=== PATIENT | male | born 1955 | race Caucasian/White ===

== ENCOUNTER → 2016-08-08 | Outpatient (CLI) | payer OTHER ==
[2013-11-06 13:39] VITALS: BP 124/70
[~2016-08-08] MED LIST: ASPI-482 PO; LEVO112T4 PO; LISI10TA2 PO; METF500T4 PO; METO-269 PO; SAXA5TAB PO; SIMV20TA3 PO
[2016-08-08 11:37] LABS: CREATININE 0.9 mg/dL (0.7-1.3); GFR 86.4
== END | disposition home or self-care (01) ==
LOC: LAB 10:46
PROVIDERS: ATTEND Psychiatry & Neurology Neurology
DX: M47.22 Other spondylosis with radiculopathy, cervical region (principal)
CPT/HCPCS: 36415; 82550; 82565; 82607; 82947; 84520; 85651

== ENCOUNTER → 2018-05-09 | Outpatient (CLI) | payer BC ==
[2013-11-06 13:39] VITALS: BP 124/70
[~2018-05-09] MED LIST changes: +METF500T16 PO; -METF500T4 PO
--- NOTE | 2018-05-09 21:48 | RAD ---
EXAM: Chest, 2 views. HISTORY: Cough. COMPARISON: None. FINDINGS: 2 views of the chest are obtained. There is no infiltrate, pleural effusion or pneumothorax. The heart is normal in size. IMPRESSION: No acute pulmonary finding. Electronically signed by: Sandy Torres MD (05/09/2018 9:43 PM) [facility]
== END | disposition home or self-care (01) ==
LOC: RAD 09:32
PROVIDERS: ATTEND Family Medicine
DX: R05 Cough (principal)
CPT/HCPCS: 71046

== ENCOUNTER 2019-10-22 12:12 | Emergency (ER) | payer BC ==
[~2019-10-22] VITALS: Ht 172.7 cm; Wt 87.2 kg
[~2019-10-22 12:12] MED LIST changes: -LEVO112T4 PO; +LEVO112T49 PO; +SIMV20TA18 PO; -SIMV20TA3 PO
[2019-10-22 13:13] LABS: BASO # 0.1 x10^3/uL (0.0-0.2); BASO % 1 % (0-3); EOS # 0.2 x10^3/uL (0.0-0.7); EOS % 2 % (0-3); HEMATOCRIT 45.1 % (39.0-53.0); HEMOGLOBIN 15.8 g/dL (13.0-17.5); LYMPH # 2.6 x10^3/uL (1.0-4.8); LYMPH % 31 % (24-48); MEAN CORPUSCULAR HEMOGLOBIN 30 pg (25-35); MEAN CORPUSCULAR HGB CONC 35 g/dL (31-37); MEAN CORPUSCULAR VOLUME 86 fL (79-100); MONO # 0.5 x10^3/uL (0.0-1.1); MONO % 6 % (0-9); NEUT # 4.9 x10^3/uL (1.8-7.7); NEUT % 60 % (31-73); PLATELET COUNT 247 x10^3/uL (140-400); RED BLOOD COUNT 5.24 x10^6/uL (4.30-5.70); RED CELL DISTRIBUTION WIDTH 14.4 % (11.5-14.5); WHITE BLOOD COUNT 8.2 x10^3/uL (4.0-11.0)
[2019-10-22 13:27] LABS: CREATININE 0.8 mg/dL (0.7-1.3); POTASSIUM 4.4 mmol/L (3.5-5.1)
--- NOTE | 2019-10-22 13:31 | EKG ---
[facility] [address] [place] [address] Test Date: 2019-10-22 Test Time: 12:45:40 Pat Name: NEAL LUGOkrisartment: Room: Gender: M Director Digital Advertising: : 1955 Requested By: CALLUM HUSTON Order Number: [id number] Reading MD: Measurements Intervals [place] Rate: 60 P: 34 MI: 190 QRS: 69 QRSD: 144 T: 16 QT: 434 QTc: 438 Interpretive Statements SINUS RHYTHM RIGHT BUNDLE BRANCH BLOCK RVH WITH REPOLARIZATION ABNORMALITY ABNORMAL ECG RI6.02 No previous ECG available for comparison
[2019-10-22 13:33] LABS: ALBUMIN 3.9 g/dL (3.4-5.0); ALBUMIN/GLOBULIN RATIO 1.1 (1.0-1.7); TOTAL BILIRUBIN 0.4 mg/dL (0.2-1.0); TOTAL PROTEIN 7.5 g/dL (6.4-8.2)
[2019-10-22 13:53] LABS: BILIRUBIN,URINE NEGATIVE (NEG); CLARITY,URINE CLEAR; COLOR,URINE YELLOW; NITRITE,URINE NEGATIVE (NEG); PROTEIN,URINE NEGATIVE (NEG-TRACE); UROBILINOGEN,URINE 0.2 mg/dL (0.2 mg/dL)
[2019-10-22 14:01] LABS: BACTERIA,URINE 0 /HPF (0-FEW); RBC,URINE 0 /HPF (0-2); WBC,URINE 0 /HPF (0-4)
[2019-10-22] MEDS ORDERED: IOHEXOL 240 MG/ML 50ML VIAL. PO ONE (14:45)
[2019-10-22] MEDS ORDERED: IOHEXOL 300 MG/ML 100ML VIAL. IV ONE (14:45)
--- NOTE | 2019-10-22 15:24 | RAD ---
CT study of the abdomen and pelvis with contrast Clinical indications: Abdominal pain. History of aneurysm. TECHNIQUE: After IV infusion of 75 cc of Omnipaque 300, helical CT scanning of the abdomen and pelvis was performed. GI contrast was administered per mouth. PQRS compliance Statement One or more of the following individualized dose reduction techniques were utilized for this study: 1. Automated exposure control 2. Adjustment of the mA and/or kV according to patient size 3. Use of iterative reconstruction technique COMPARISON: None available. FINDINGS: Diffuse fatty infiltration of the liver is seen. The spleen is not enlarged. Pancreas enhances homogeneously. Gallbladder is normal and no extrahepatic biliary ductal dilatation is seen. No adrenal mass is seen. Upper pole right renal cyst is seen. Bilateral hypodense renal nodules are seen consistent with cysts. There is one nodule within the mid to lower aspect of the right kidney anteriorly which is indeterminate based on higher Hounsfield unit measurement of 30. This may be due to it's smaller size of 9 mm. This may be further evaluated with outpatient renal sonography. There is mild perinephric inflammatory stranding. However, no hydronephrosis or hydroureter is seen on either side. Urinary bladder wall is smooth. Urinary bladder is indented by enlarged prostate gland which measures 6.2 cm transversely. The seminal vesicles are symmetric. Calcified atheromatous disease of the abdominal aorta is seen. There is an infrarenal abdominal aortic aneurysm which measures 5.7 cm in transverse dimension and 5.5 cm in AP dimension. No displacement of the calcified wall is seen. No periaortic soft tissue thickening or fluid is evident. This aneurysm measures almost 11 cm in length. This aneurysm does not extend into the common iliac arteries. However, there is a separate focal aneurysm of the right common iliac artery which measures 3.1 cm in greatest AP or transverse dimension. No enlarged abdominal or pelvic lymphadenopathy is seen. Bilateral inguinal hernias are seen containing fat. This is more prominent on the right side. No obstructive bowel pattern is evident. Sigmoid diverticulosis is seen without diverticulitis. The terminal ileum is unremarkable. The appendix is normal. No obstructive bowel pattern is seen. Small hiatal hernia is seen. No free intraperitoneal air or free fluid or mesenteric edema is seen. No lytic process is seen. There is a round sclerotic area involving the left side of the L3 vertebral body. No lung base consolidative infiltrate is seen. IMPRESSION: Infrarenal abdominal aortic aneurysm measuring 5.7 cm in greatest caliber. 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 Enlarged prostate gland. This is a focal sclerotic lesion involving the left side of the L3 vertebral through body. This may represent a solitary bone island but correlation with PSA is recommended to exclude osteoblastic metastatic disease. Indeterminate right renal nodule. This may be further evaluated with outpatient renal sonography. Fatty infiltration of the liver. Small hiatal hernia. Bilateral inguinal hernias right greater than left. The inguinal hernias contain only fat. Electronically signed by: Blas Izaguirre MD (10/22/2019 3:21 PM) [id number]
[2019-10-22 15:30] VITALS: BP 147/82
--- NOTE | 2019-10-22 17:19 | PHYS DOC ---
Past Medical History Past Medical History: Diabetes-Type II, High Cholesterol, Hypertension, Hypothyroid, TIA Past Surgical History: No Surgical History Smoking Status: Former Smoker Additional Information: quit smoking 7 years ago Alcohol Use: Occasionally Drug Use: None General Adult EDM: Chief Complaint: ABDOMINAL PAIN HPI: HPI: Patient is a 64 year old male who presents with back pain that radiates into his buttocks. He does have a history of an aortic abdominal aneurysm. He was sent here by his doctor to have his aneurysm checked as he started having new onset back pain. He denies any other symptoms. He has had some intermittent back pain previously. He denies any numbness or weakness. He does not have any bowel or bladder dysfunction or retention. He denies any severe pain. He is not had any nausea or vomiting. Review of Systems: Review of Systems: General: Denies fever, chills, sweats, fatigue Eyes: Denies drainage, blurred vision HENT: Denies rhinorrhea, sore throat Respiratory: Denies cough, shortness of breath, wheezing Cardiac: Denies edema, palpitations, chest pain GI: Denies abdominal pain, N/V MSK: Denies neck pain reports back pain Skin: Denies rash, jaundice Neuro: Denies headache, dizziness Psychiatric: Denies SI/HI Heart Score: Risk Factors: Risk Factors: DM, Current or recent (<one month) smoker, HTN, HLP, family history of CAD, obesity. Risk Scores: Score 0 - 3: 2.5% MACE over next 6 weeks - Discharge Home Score 4 - 6: 20.3% MACE over next 6 weeks - Admit for Clinical Observation Score 7 - 10: 72.7% MACE over next 6 weeks - Early Invasive Strategies Current Medications: Current Medications Medications (Trade) Dose Ordered Sig/Yoandy Start Time Stop Time Status Last Admin Dose Admin Iohexol (Omnipaque 240 Mg/ml) 30 ml 1X ONCE 10/22/19 14:45 10/22/19 14:46 DC 10/22/19 14:48 30 ML Iohexol (Omnipaque 300 Mg/ml) 75 ml 1X ONCE 10/22/19 14:45 10/22/19 14:46 DC 10/22/19 14:48 75 ML Allergies: Allergies: Allergies Coded Allergies Type Severity Reaction Last Updated Verified No Known Drug Allergies 11/06/13 No Physical Exam: PE: Constitutional: Well developed, well nourished, Cooperative, NAD, non-toxic appearing HEENT: Normocephalic, atraumatic, oropharynx moist, EOMI, PERRL, no drainage from eyes, normal conjunctiva Neck: Supple, normal range of motion, no stridor Cardiovascular: RRR, 2+ radial pulses bilaterally, no edema Respiratory: CTA bilaterally, no respiratory distress, no wheezing/crackles Abdomen: Soft, nontender, nondistended, no masses Skin: Warm, dry, intact Extremities: No obvious deformities Neurologic: Alert and Oriented x3, motor and sensory function grossly normal, no focal deficits Psychologic: Normal affect, normal judgment, normal mood. No SI/HI Current Patient Data: Labs: Laboratory Tests Test 10/22/19 13:00 10/22/19 13:45 White Blood Count 8.2 x10^3/uL (4.0-11.0) Red Blood Count 5.24 x10^6/uL (4.30-5.70) Hemoglobin 15.8 g/dL (13.0-17.5) Hematocrit 45.1 % (39.0-53.0) Mean Corpuscular Volume 86 fL (79-100) Mean Corpuscular Hemoglobin 30 pg (25-35) Mean Corpuscular Hemoglobin Concent 35 g/dL (31-37) Red Cell Distribution Width 14.4 % (11.5-14.5) Platelet Count 247 x10^3/uL (140-400) Neutrophils (%) (Auto) 60 % (31-73) Lymphocytes (%) (Auto) 31 % (24-48) Monocytes (%) (Auto) 6 % (0-9) Eosinophils (%) (Auto) 2 % (0-3) Basophils (%) (Auto) 1 % (0-3) Neutrophils # (Auto) 4.9 x10^3/uL (1.8-7.7) Lymphocytes # (Auto) 2.6 x10^3/uL (1.0-4.8) Monocytes # (Auto) 0.5 x10^3/uL (0.0-1.1) Eosinophils # (Auto) 0.2 x10^3/uL (0.0-0.7) Basophils # (Auto) 0.1 x10^3/uL (0.0-0.2) Sodium Level 135 mmol/L (136-145) L Potassium Level 4.4 mmol/L (3.5-5.1) Chloride Level 98 mmol/L (98-107) Carbon Dioxide Level 24 mmol/L (21-32) Anion Gap 13 (6-14) Blood Urea Nitrogen 19 mg/dL (8-26) Creatinine 0.8 mg/dL (0.7-1.3) Estimated GFR (Cockcroft-Gault) 98.0 BUN/Creatinine Ratio 24 (6-20) H Glucose Level 291 mg/dL (70-99) H Calcium Level 9.0 mg/dL (8.5-10.1) Total Bilirubin 0.4 mg/dL (0.2-1.0) Aspartate Amino Transferase (AST) 63 U/L (15-37) H Alanine Aminotransferase (ALT) 112 U/L (16-63) H Alkaline Phosphatase 92 U/L (46-116) Troponin I Quantitative < 0.017 ng/mL (0.000-0.055) Total Protein 7.5 g/dL (6.4-8.2) Albumin 3.9 g/dL (3.4-5.0) Albumin/Globulin Ratio 1.1 (1.0-1.7) Urine Collection Type Unknown Urine Color Yellow Urine Clarity Clear Urine pH 5.0 (<5.0-8.0) Urine Specific [place] >=1.030 (1.000-1.030) Urine Protein Negative mg/dL (NEG-TRACE) Urine Glucose (UA) >=1000 mg/dL (NEG) Urine Ketones (Stick) Trace mg/dL (NEG) Urine Blood Negative (NEG) Urine Nitrite Negative (NEG) Urine Bilirubin Negative (NEG) Urine Urobilinogen Dipstick 0.2 mg/dL (0.2 mg/dL) Urine Leukocyte Esterase Negative (NEG) Urine RBC 0 /HPF (0-2) Urine WBC 0 /HPF (0-4) Urine Bacteria 0 /HPF (0-FEW) Urine Mucus Mod /LPF Laboratory Tests 10/22/19 13:00 Laboratory Tests 10/22/19 13:00 Vital Signs: Vital Signs Date Time Temp Pulse Resp B/P (MAP) Pulse Ox O2 Delivery O2 Flow Rate FiO2 10/22/19 15:30 68 147/82 (103) 95 Room Air 10/22/19 12:40 98.6 20 98.6 EKG: EKG: [] Radiology/Procedures: Radiology/Procedures: [] Course & Med Decision Making: Course & Med Decision Making Pertinent Labs and Imaging studies reviewed. (See chart for details) Patient is a 64-year-old male who presents to the emergency room with back pain that is new onset. He does have a history of an abdominal aortic aneurysm. Basic labs and a CT abdomen pelvis was done. CT shows a large aneurysm that does not appear to have signs of rupture or dissection. Lab is otherwise fairly normal. He does appear to have some arthritis. He is following up with vascular surgery. He is requesting to go home. He is generally well-appearing. Patient's test results and vitals while in the ED were fully reviewed and discussed with the patient. Patient is stable and at this time does not need admission to the hospital. We have discussed strict return precautions and the importance of following up with their Primary Care Physician. Patient stated understanding and was given an opportunity to ask any questions. Aditya Disclaimer: Aditya Disclaimer: This electronic medical record was generated, in whole or in part, using a voice recognition dictation system. Departure Departure Impression: Primary Impression: Sciatica Additional Impression: Abdominal aneurysm Disposition: HOME, SELF-CARE Condition: IMPROVED Patient Instructions: Sciatica, Gcue-es-Dvub, Abdominal Aortic Aneurysm-Brief Justicifation of Admission Dx: Justifications for Admission: Justification of Admission Dx: N/A CALLUM HUSTON MD Oct 22, 2019 17:19
[2019-10-23] MEDS ORDERED: IOHEXOL 300 MG/ML 100ML VIAL. ONE (06:07)
[2019-10-23] MEDS ORDERED: IOHEXOL 240 MG/ML 50ML VIAL. ONE (06:08)
== END 2019-10-22 17:28 | disposition home or self-care (01) ==
LOC: ER 12:12
DX: M54.40 Lumbago with sciatica, unspecified side (principal); I71.4 Abdominal aortic aneurysm, without rupture; E11.9 Type 2 diabetes mellitus without complications; E78.00 Pure hypercholesterolemia, unspecified; I10 Essential (primary) hypertension; E03.9 Hypothyroidism, unspecified; Z86.73 Personal history of transient ischemic attack (TIA), and cerebral infarction without residual deficits; Z87.891 Personal history of nicotine dependence
CPT/HCPCS: 36415; 74177; 80053; 81001; 84484; 85025; 93005; 99285; Q9966; Q9967

== ENCOUNTER → 2020-07-24 | Outpatient (CLI) | payer BC ==
[~2020-07-24] MED LIST changes: +CONTRAST GIVEN. MC PRN; +IOHEXOL 350 MG/ML 100 ML VIAL. IV ONE; +LISI10TA16 PO; -LISI10TA2 PO
--- NOTE | 2020-07-24 09:39 | CARD ---
MR#: [id number] Date of Study: 07/24/2020 Ordering Physician: HUNTER URIBE, Referring Physician: HUNTER URIBE, Tech: Onelia Mcduffie ANTONIA APPROVED REPORT EXAM: Two-dimensional and M-mode echocardiogram with Doppler and color Doppler. INDICATION Pulmonary Hypertention 2D DIMENSIONS Left Atrium(2D)3.4 (1.6-4.0cm)IVSd1.0 (0.7-1.1cm) Aortic Root(2D)3.8 (2.0-3.7cm)LVDd3.5 (3.9-5.9cm) LVOT Diameter2.1 (1.8-2.4cm)PWd1.0 (0.7-1.1cm) LVDs2.7 (2.5-4.0cm)FS (%) 22.4 % SV23.8 mlLVEF(%)46.1 (>50%) Aortic Valve AoV Peak Slade.164.5cm/sAoV VTI20.6cm AO Peak GR.10.8mmHgLVOT VTI 19.22cm AO Mean GR.5mmHgAVA (VTI)3.30cm2 Mitral Valve MV E Amnydnpn39.3cm/sMV DECEL CIHO24sw MV A Mzwxolgf37.4cm/sE/A Ratio0.6 TDI Lateral E' P. V8.17cm/sMedial E' P. V5.86cm/s E/Lateral E'6.2E/Medial E'8.6 LEFT VENTRICLE The left ventricle cavity is small. There is normal left ventricular wall thickness. Left ventricle s ystolic function is normal. The Ejection Fraction is 55%. There is normal LV segmental wall motion. T ransmitral Doppler flow pattern is Grade I-abnormal relaxation pattern. RIGHT VENTRICLE The right ventricle is normal size. The right ventricular systolic function is normal. ATRIA The left atrium size is normal. The right atrium size is normal. The interatrial septum is intact wit h no evidence for an atrial septal defect or patent foramen ovale as noted on 2-D or Doppler imaging. AORTIC VALVE The aortic valve is mildly thickened but opens well. Doppler and Color Flow revealed significant aort ic regurgitation. There is no significant aortic valvular stenosis. MITRAL VALVE The mitral valve is calcified but opens well. There is no evidence of mitral valve prolapse. There is no mitral valve stenosis. Doppler and Color Flow revealed no mitral valve regurgitation noted. TRICUSPID VALVE The tricuspid valve is normal in structure and function. Doppler and Color Flow revealed trace tricus pid valve regurgitation. There is no tricuspid valve stenosis. PULMONIC VALVE The pulmonic valve is not well visualized. Doppler and Color Flow revealed no pulmonic valvular regur gitation. There is no pulmonic valvular stenosis. GREAT VESSELS The aortic root is mildly enlarged at 3.8 cm. The ascending aorta is not well seen. The IVC is normal in size and collapses >50% with inspiration. PERICARDIAL EFFUSION There is no evidence of significant pericardial effusion. Critical Notification Critical Value: No <Conclusion> Left ventricle systolic function is normal. The Ejection Fraction is 55%. There is normal LV segmental wall motion. Transmitral Doppler flow pattern is Grade I-abnormal relaxation pattern. Trace tricuspid valve regurgitation. There is no evidence of significant pericardial effusion. Signed by : Andrea Mendez, Electronically Approved : 07/24/2020 09:39:04
--- NOTE | 2020-07-24 11:15 | RAD ---
CT angiography of the chest chest radiograph May 09, 2018 07/24/2020 8:48 AM Indication: Reason: SOA eval for P/E / Spl. Instructions: omni 350 100ml / History: Technique: Multiple contiguous axial images were obtained through the chest after administration of i ntravenous iodinated contrast. Coronal, sagittal, and 3-D MIP reformations were created. Comparison: CT of the abdomen and pelvis with contrast October 22, 2019 Findings: There is no filling defect within central pulmonary arteries or evidence of acute pulmonary embolism. There is mild cardiomegaly. No significant pericardial effusion is identified. There are scattered sm all mediastinal lymph nodes. Slightly more prominent lymphadenopathy appears be present in the right hilum and subcarinal regions. These are borderline in regards to pathologic enlargement. There is lef t upper extremity PICC line with tip the cavoatrial junction. There is severe interstitial lung disea se. Subpleural honeycombing, and larger blebs are prominent. Diffuse bronchiectasis is seen. Heteroge nous attenuation of lung parenchyma is seen. The appearance is concerning for UIP/IPF. Evaluation of the upper abdomen demonstrates no acute abnormality. No acute osseous changes are seen. IMPRESSION: . 1. No evidence of pulmonary embolism 2. Severe interstitial lung disease with appearance concerning for UIP/IPF. Visualization of the lung bases from CT of the abdomen from October 2019 is essentially unremarkable consistent with significant progression of disease over the last 9 months. Prompt pulmonology consultation recommended. CT DOSING PQRS STATEMENT: One or more of the following individualized dose reduction techniques were utilized for this examinat ion: 1. Automated exposure control 2. Adjustment of the mA and/or kV according to patient size 3. Use of iterative reconstruction technique Electronically signed by: Danny Lopez MD (07/24/2020 11:13 AM) [id number]
== END ==
LOC: ECHO 07:49
PROVIDERS: ATTEND Internal Medicine Critical Care Medicine
DX: I34.0 Nonrheumatic mitral (valve) insufficiency (principal); I27.20 Pulmonary hypertension, unspecified
CPT/HCPCS: 71275; 93306

== ENCOUNTER → 2020-10-30 | Outpatient (CLI) | payer BC ==
[~2020-10-30] MED LIST changes: -CONTRAST GIVEN. MC PRN; -IOHEXOL 350 MG/ML 100 ML VIAL. IV ONE
--- NOTE | 2020-10-30 11:41 | KCIC ---
CT of the chest without contrast 10/30/2020 INDICATION: Interstitial lung disease COMPARISON STUDY: CT of the chest July 24, 2020 TECHNIQUE: Multidetector CT imaging of the chest performed without contrast With respect to comparison study there is overall similar appearance of diffuse interstitial lung dis ease with diffuse bronchiectasis, subpleural honeycombing, and multiple subpleural blebs. On the righ t side some of the subpleural blebs have mildly increased in size in the interim. There is no pneumot horax, or effusion. No focal consolidative infiltrate is identified. Heart size is mildly enlarged. N o pericardial effusion is identified. Coronary calcification noted. Scattered small mediastinal lymph nodes are noted. Evaluation the mediastinum is limited given lack of contrast. Limited visualizatio n of the upper abdomen demonstrates no acute normalities. No acute osseous changes are seen. IMPRESSION: 1. Overall similar appearance of diffuse interstitial lung disease respect to most recent comparison exam from July 2020, with mild increase in size of subpleural blebs on the right. 2. Otherwise grossly stable exam CT DOSING PQRS STATEMENT: One or more of the following individualized dose reduction techniques were utilized for this examinat ion: 1. Automated exposure control 2. Adjustment of the mA and/or kV according to patient size 3. Use of iterative reconstruction technique Electronically signed by: Danny Lopez MD (10/30/2020 11:38 AM) [id number]
== END ==
LOC: KCIC CT 10:36
PROVIDERS: ATTEND Internal Medicine Pulmonary Disease
DX: J47.9 Bronchiectasis, uncomplicated (principal); J84.9 Interstitial pulmonary disease, unspecified; I25.10 Atherosclerotic heart disease of native coronary artery without angina pectoris
CPT/HCPCS: 71250

== ENCOUNTER → 2021-01-22 | Outpatient (CLI) | payer BC ==
--- NOTE | 2021-01-22 09:17 | KCIC ---
Exam Date: 01/22/2021 8:[address] THORAX WO Indication: Reason: ILD, Hx. COVID 19. / Spl. Instructions: / History: . TECHNIQUE: CT scan of the chest was performed without intravenous contrast. One or more of the [facility] dose reduction techniques were utilized: *Automated exposure control (AEC) *Adjustment of mA and/or kV according to patient size *Use of iterative reconstruction technique *CT scan done according to ALARA, or ALARA/IMAGE GENTLY COMPARISON: October 30, 2020 and July 24, 2020 FINDINGS: Again seen are prominent changes of interstitial pulmonary fibrosis with subpleural honeycombing, bro nchiectasis, and subpleural blebs. Several of the subpleural blebs continued increase in size since the prior exam. A thick-walled cavitary lesion with air-fluid level is increased in size in the righ t upper lobe posteriorly, currently measuring approximately 4.6 x 3.0 cm, previously 3.0 x 1.5 cm. T here are adjacent patchy infiltrates in this region. The central airways are patent. There is no focal consolidation, pleural effusion or pneumothorax. No lymphadenopathy is seen. Aorta is normal in caliber with atherosclerotic calcifications. The heart is normal in size without pericardial effusion. Images of the upper abdomen demonstrate a small hiatal hernia. Small calcification in the left kidne y may represent a nonobstructing calculus versus a vascular calcification. Degenerative changes are seen in the spine. IMPRESSION: Prominent changes of interstitial pulmonary fibrosis are again seen bilaterally, similar compared to the prior exam, except for interval continued increase in size of subpleural blebs. Thick-walled cavitary lesion posteriorly on the right is also increased in size, with air-fluid level on the current exam and adjacent patchy infiltrates. Infection is not excluded. Clinical correlati on and continued imaging follow-up is recommended. Electronically signed by: Darnell Valenzuela MD (01/22/2021 9:15 AM) [facility]
== END ==
LOC: KCIC CT 07:58
PROVIDERS: ATTEND Internal Medicine Pulmonary Disease
DX: U07.1 COVID-19 (principal); K44.9 Diaphragmatic hernia without obstruction or gangrene; N28.89 Other specified disorders of kidney and ureter; M47.814 Spondylosis without myelopathy or radiculopathy, thoracic region
CPT/HCPCS: 71250

== ENCOUNTER → 2021-02-06 | Day surgery (SDC) | payer BC ==
[~2021-02-06] VITALS: Ht 170.2 cm; Wt 80.0 kg
[~2021-02-06] MED LIST changes: +ALBUTEROL SULFATE 2.5 MG/3 ML NEBU. NEB PRN; +EPINEPHrine 1 MG/ML VIAL INJ PRN; +EPINEPHrine 1 MG/ML VIAL ONE; +IV 1/2 NORMAL SALINE 1,000 ML IV ONE; +LIDOCAINE 1% Multi-Dose 20 ML VIAL. INJ PRN; +LIDOCAINE 1% Multi-Dose 20 ML VIAL. ONE; +LIDOCAINE 2% VISCOUS 100 ML BOTTLE. MM PRN; +LIDOCAINE 2% VISCOUS 100 ML BOTTLE. ONE; +LIDOCAINE 4% TOPICAL 50 ML SOLUTION. MM PRN; +LIDOCAINE 4% TOPICAL 50 ML SOLUTION. ONE; +PROPOFOL 10 MG/ML (20ML) VIAL. IV ONE
[2021-02-06 13:15] LABS: BASO # 0.1 x10^3/uL (0.0-0.2); BASO % 1 % (0-3); EOS # 0.2 x10^3/uL (0.0-0.7); EOS % 1 % (0-3); HEMATOCRIT 39.6 % (39.0-53.0); LYMPH # 3.7 x10^3/uL (1.0-4.8); LYMPH % 20 % (24-48); MEAN CORPUSCULAR HEMOGLOBIN 28 pg (25-35); MEAN CORPUSCULAR HGB CONC 33 g/dL (31-37); MEAN CORPUSCULAR VOLUME 84 fL (79-100); MONO % 6 % (0-9); NEUT # 13.5 x10^3/uL (1.8-7.7); NEUT % 73 % (31-73); PLATELET COUNT 395 x10^3/uL (140-400); RED BLOOD COUNT 4.74 x10^6/uL (4.30-5.70); RED CELL DISTRIBUTION WIDTH 15.5 % (11.5-14.5); WHITE BLOOD COUNT 18.5 x10^3/uL (4.0-11.0)
[2021-02-06 13:28] LABS: PROTHROMBIN TIME PATIENT 13.7 SEC (11.7-14.0)
[2021-02-06 13:35] VITALS: BP 136/90
--- NOTE | 2021-02-06 14:13 | OP ---
DATE OF SURGERY: 02/06/2021 PROCEDURES: Bronchoscopy, bronchoalveolar lavage. INDICATIONS: The patient presented with chronic respiratory failure, prior history of COVID-19 viral pneumonia, recent clinical presentation compatible with pneumonia. He was treated. He underwent a CT chest revealing a new right lower lobe cavitary lesion, undergoing diagnostic bronchoscopy. Risks, benefits, and alternatives reviewed with the patient and consent was he consented. DESCRIPTION OF PROCEDURE: A timeout was performed prior to sedation. Vital signs and O2 saturation were maintained within normal limits throughout the procedure. The bronchoscope was passed through the right naris. The vocal cords were identified moving bilaterally without any dysfunction. There was minimal amount of subglottic granulation tissue from previous tracheotomy. The scope was easily passed through the narrowed upper trachea. Upon inspecting the right and left segments and subsegments, there was no endobronchial lesion. There was no purulent material. The scope was wedged into the right lower lobe and a bronchoalveolar lavage was performed. The return was clear. FINDINGS: 1. Normal vocal cords. 2. Slight narrowing of the upper trachea from previous tracheotomy site. 3. No endobronchial lesion. 4. No purulent secretions. The patient tolerated procedure well with no immediate complications. We will await the BAL results. The patient was started on Augmentin 875 one p.o. b.i.d. until seen in the office. DARRICK DR: Ricardo TID: [id number] CC: ROSE OCONNELL MD
[2021-02-06 14:20] VITALS: BP 119/80
== END | disposition home or self-care (01) ==
LOC: SURG 12:46
PROVIDERS: ATTEND Internal Medicine Pulmonary Disease
DX: J96.10 Chronic respiratory failure, unspecified whether with hypoxia or hypercapnia (principal); J12.9 Viral pneumonia, unspecified; I10 Essential (primary) hypertension; M19.90 Unspecified osteoarthritis, unspecified site; Z87.891 Personal history of nicotine dependence; Z79.82 Long term (current) use of aspirin; Z79.84 Long term (current) use of oral hypoglycemic drugs; Z79.899 Other long term (current) drug therapy; Z98.890 Other specified postprocedural states; Z72.89 Other problems related to lifestyle
CPT/HCPCS: 31624; 36415; 85025; 85610; 87070; 87102; 87116; 87205; 87252; 94640; J2704; J3490; J7613; 31622; 88112; 88312; J0171

== ENCOUNTER → 2021-04-05 | Outpatient (CLI) | payer BC, OTHER ==
[2021-02-06 14:20] VITALS: BP 119/80
[~2021-04-05] MED LIST changes: -ALBUTEROL SULFATE 2.5 MG/3 ML NEBU. NEB PRN; -EPINEPHrine 1 MG/ML VIAL INJ PRN; -EPINEPHrine 1 MG/ML VIAL ONE; -IV 1/2 NORMAL SALINE 1,000 ML IV ONE; -LIDOCAINE 1% Multi-Dose 20 ML VIAL. INJ PRN; -LIDOCAINE 1% Multi-Dose 20 ML VIAL. ONE; -LIDOCAINE 2% VISCOUS 100 ML BOTTLE. MM PRN; -LIDOCAINE 2% VISCOUS 100 ML BOTTLE. ONE; -LIDOCAINE 4% TOPICAL 50 ML SOLUTION. MM PRN; -LIDOCAINE 4% TOPICAL 50 ML SOLUTION. ONE; -PROPOFOL 10 MG/ML (20ML) VIAL. IV ONE
--- NOTE | 2021-04-05 14:46 | KCIC ---
CT of the chest without contrast 04/05/2021 Indication: Reason: ILD, Hx. COVID 19. TECHNIQUE: CT imaging of the chest was performed without contrast COMPARISON: CT of the chest without contrast January 22, 2021. FINDINGS: Fibrotic changes including subpleural honeycombing, bronchiectasis, and subpleural blebs appear gross ly similar. The thick-walled blebs/cavitary lesion in the posterior right upper lobe no longer appear s to contain a fluid/fluid level. No pneumothorax or significant effusion is seen. Heart size is normal. Coronary calcification noted. No pathologically enlarged mediastinal adenopathy is seen. No acute abnormalities in the upper abdomen are identified. No acute osseous changes are no sree in the interim. IMPRESSION: 1. Resolution of the previously seen air-fluid level within the thicker walled cavitary lesion/bleb i n the right upper lobe 2. Otherwise stable appearance of the chest with fibrotic changes including subpleural honeycombing, bronchiectasis, subpleural blebs. CT DOSING PQRS STATEMENT: One or more of the following individualized dose reduction techniques were utilized for this examinat ion: 1. Automated exposure control 2. Adjustment of the mA and/or kV according to patient size 3. Use of iterative reconstruction technique Electronically signed by: Danny Lopez MD (04/05/2021 2:43 PM) [id number]
== END ==
LOC: KCIC CT 12:29
PROVIDERS: ATTEND Internal Medicine Pulmonary Disease
DX: J47.9 Bronchiectasis, uncomplicated (principal); J43.9 Emphysema, unspecified; I25.10 Atherosclerotic heart disease of native coronary artery without angina pectoris
CPT/HCPCS: 71250

== ENCOUNTER → 2021-06-08 | Outpatient (CLI) | payer BC, OTHER ==
[2021-02-06 14:20] VITALS: BP 119/80
[~2021-06-08] MED LIST changes: +IOHEXOL 300 MG/ML 100ML VIAL. IV ONE
--- NOTE | 2021-06-08 09:41 | KCIC ---
Three view thoracic spine History: Pain AP, swimmer's projection and lateral views of the thoracic spine were obtained. The vertebral bodies are aligned. There is no loss of vertebral body stature. Intervertebral disc hei ghts are preserved. Impression: No acute findings. End Impression Three view lumbosacral spine History: Pain AP, coned-down lateral and lateral views of the lumbosacral spine were obtained. There is grade 1 anterolisthesis of L4 on L5 and there is minimal retrolisthesis of L3 on L4. There i s no loss of vertebral body stature. There is mild loss of intervertebral disc height at L2-L3 and L3 -L4. There is minimal marginal spurring at endplates. There is an aortobiiliac endograft. Impression: Mild chronic discogenic disease. No acute findings. End Impression Electronically signed by: Jorge Gr III, MD (06/08/2021 9:38 AM) [facility]
--- NOTE | 2021-06-08 12:47 | KCIC ---
Exam: CT abdomen/pelvis with intravenous contrast Indication: Abdominal aortic aneurysm without rupture. Stent placement back pain. Comparison: CT abdomen and pelvis 10/22/[address] chest 04/05/2019 Technique: Helical CT imaging performed of the abdomen and pelvis after the intravenous administratio n of 90 mL Omnipaque 300 contrast. Sagittal and coronal reformats were obtained. One or more of the following individualized dose reduction techniques were utilized for this examinat ion: 1. Automated exposure control 2. Adjustment of the mA and/or kV according to patient size 3. Use of iterative reconstruction technique. Findings: Vasculature: Surgical changes of infrarenal abdominal aortic aneurysm repair with an aortobiiliac kaia nt graft. The stent graft is patent. The excluded aneurysm sac measures up to 4.6 x 4.4 cm, previousl y 6.0 x 5.4 cm. No definite evidence of endoleak on single arterial phase of contrast exam. 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 There is mild narrowing at the celiac and superior mesenteric artery origins. Renal artery origins are pat ent. The inferior mesenteric artery origin is not visualized. Lower chest: Interstitial lung disease in the lung bases is unchanged. The heart is normal in size. T here are coronary artery calcifications. Liver: Normal. Gallbladder/Biliary Tree: Normal. Pancreas: Normal. Spleen: Normal. Adrenal Glands: Normal. Kidneys/Ureters/Bladder: Kidneys are normal in size and enhance symmetrically. Bilateral subcentimete r hypodensities are too small characterize but likely simple cysts. No hydronephrosis. Ureters and bl adder are normal. Reproductive Organs: Enlarged prostate gland, but increased, now 6.0 x 4.8 cm, previously 5.5 x 4.5 c m. There is increased soft tissue dominance at the junction of the prostate and left seminal vesicle. stomach, small bowel, and colon: Small hiatal hernia. There is no small bowel obstruction. The colon is normal. Lymph Nodes: No lymphadenopathy. Peritoneum and retroperitoneum: No free fluid or free air. Bones: There is a destructive osseous lesion in the right side of the T12 vertebral body with a soft tissue component measuring 4.2 x 4.0 cm that extends laterally into the paravertebral soft tissue aniya phragmatic shannen. There is associated pathologic fracture of T12 with 25 percent vertebral body height loss on the right. No retropulsion or obvious extension into the canal. There is likely of at least mild right foraminal narrowing at this level related to the soft tissue component. There is an unchan ged 1.4 cm dense sclerotic lesion in the L3 vertebral body. Likely moderate canal stenosis at L3-L4 a nd L4-L5 related to degenerative disc disease. Miscellaneous: Soft tissue nodule measuring 2.1 x 1.3 cm abutting the diaphragm and likely abutting t he pleura just inferior to the posterior medial right costophrenic sulcus at the level of the posteri or 11th rib. Fat-containing right inguinal hernia. IMPRESSION: 1. Surgical changes of the infrarenal abdominal aortic aneurysm repair with aortobiiliac stent graft . Decreased size of excluded aneurysm sac. No definite evidence of endoleak on single phase of contra st exam. Decreased size of right common iliac artery aneurysm. 2. Destructive osseous lesion in the right side of T12 with a large soft tissue component extending laterally into the paravertebral soft tissue and involving the diaphragmatic shannen. Differential diagn osis includes metastatic disease, myeloma, or plasmacytoma. There is an associated pathologic fractur e of T12 with 25 percent vertebral body height loss on the right. No obvious involvement of the canal however recommend MRI of the spine with and without contrast to further evaluate. 3. Adjacent smaller soft tissue nodule involving the diaphragm on the right at the level of the poste rior 11th rib. 4. Unchanged sclerotic lesion in the L3 vertebral body. 5. Enlarged prostate gland with soft tissue fullness at the junction of the prostate and left seminal vesicle. Correlate for prostate cancer 6. Unchanged interstitial lung disease in the lung bases. FOR INTERNAL CODING PURPOSES Critical result: A message regarding urgent results was left at Dr. Whitlock's office on his voicemail at 06/08/2021 12:35 PM. I was unable to reach anybody to discuss results in person. RESULT CODE: (C) Electronically signed by: Shikha Fernandes MD (06/08/2021 12:45 PM) [facility]
== END ==
LOC: KCIC CT 08:51
PROVIDERS: ATTEND Internal Medicine
DX: I71.4 Abdominal aortic aneurysm, without rupture (principal); I72.3 Aneurysm of iliac artery; N40.0 Benign prostatic hyperplasia without lower urinary tract symptoms; J84.9 Interstitial pulmonary disease, unspecified; I25.10 Atherosclerotic heart disease of native coronary artery without angina pectoris; K44.9 Diaphragmatic hernia without obstruction or gangrene; K40.90 Unilateral inguinal hernia, without obstruction or gangrene, not specified as recurrent; M84.48XA Pathological fracture, other site, initial encounter for fracture; M43.16 Spondylolisthesis, lumbar region
CPT/HCPCS: 72072; 72100; 74177; 82565; Q9967

== ENCOUNTER → 2021-06-11 | Outpatient (CLI) | payer BC, OTHER ==
[2021-02-06 14:20] VITALS: BP 119/80
[~2021-06-11] MED LIST changes: -IOHEXOL 300 MG/ML 100ML VIAL. IV ONE
[2021-06-11 12:56] LABS: BASO % 0 % (0-3); EOS # 0.2 x10^3/uL (0.0-0.7); EOS % 2 % (0-3); HEMATOCRIT 43.1 % (39.0-53.0); HEMOGLOBIN 13.9 g/dL (13.0-17.5); LYMPH # 3.5 x10^3/uL (1.0-4.8); LYMPH % 31 % (24-48); MEAN CORPUSCULAR HEMOGLOBIN 26 pg (25-35); MEAN CORPUSCULAR HGB CONC 32 g/dL (31-37); MEAN CORPUSCULAR VOLUME 81 fL (79-100); MONO # 0.9 x10^3/uL (0.0-1.1); MONO % 8 % (0-9); NEUT # 6.8 x10^3/uL (1.8-7.7); NEUT % 59 % (31-73); PLATELET COUNT 363 x10^3/uL (140-400); RED BLOOD COUNT 5.29 x10^6/uL (4.30-5.70); RED CELL DISTRIBUTION WIDTH 15.3 % (11.5-14.5); WHITE BLOOD COUNT 11.5 x10^3/uL (4.0-11.0)
[2021-06-11 13:13] LABS: CALCIUM 9.2 mg/dL (8.5-10.1); CREATININE 0.9 mg/dL (0.7-1.3); POTASSIUM 4.1 mmol/L (3.5-5.1)
[2021-06-11 13:18] LABS: ALBUMIN 3.5 g/dL (3.4-5.0); ALBUMIN/GLOBULIN RATIO 0.6 (1.0-1.7); TOTAL BILIRUBIN 0.2 mg/dL (0.2-1.0); TOTAL PROTEIN 9.1 g/dL (6.4-8.2)
[2021-06-12 13:14] LABS: ALBUM 3.9 g/dL (2.9-4.4); ALPHA 1 0.3 g/dL (0.0-0.4); ALPHA 2 1.3 g/dL (0.4-1.0); BETA 1.4 g/dL (0.7-1.3); COMMENT IMMUNOFIX SERUM Note: (.); FREE PSA/PSA RATIO 16.9 % (.); GAMMA 1.3 g/dL (0.4-1.8); IMMUNOGLOBULIN A 480 mg/dL (61-437); IMMUNOGLOBULIN G 1311 mg/dL (603-1613); IMMUNOGLOBULIN M 45 mg/dL (20-172); PROTEIN TOTAL 8.3 g/dL (6.0-8.5); PSA FREE 0.44 ng/mL; PSA TOTAL 2.6 ng/mL (0.0-4.0); SPEP AG RATIO 0.9 (0.7-1.7)
[2021-06-12 14:15] LABS: KAPPA FREE 35.5 mg/L (3.3-19.4); KAPPA LAMBDA RATIO 2.37 (0.26-1.65)
== END ==
LOC: ONCLAB 12:13
PROVIDERS: ATTEND Internal Medicine Hematology & Oncology
DX: C41.2 Malignant neoplasm of vertebral column (principal); N40.0 Benign prostatic hyperplasia without lower urinary tract symptoms
CPT/HCPCS: 36415; 80053; 82784; 83520; 84153; 84154; 84165; 85025; 86334

== ENCOUNTER 2021-06-19 07:52 | Inpatient (IN) | payer BC, OTHER ==
[~2021-06-19] VITALS: Ht 172.7 cm; Wt 74.5 kg
[2021-06-19] VITALS (16 sets, daily range): BP systolic 96–156; BP diastolic 57–101
[2021-06-19] MEDS ORDERED: HYDR-2761 PO (08:32)
[2021-06-19] MEDS ORDERED: TIZA-75 PO (08:32)
[2021-06-19 08:45] LABS: PROTHROMBIN TIME PATIENT 13.4 SEC (11.7-14.0)
[2021-06-19] MEDS ORDERED: LIDOCAINE WITH 8.4% SOD BICARB 3 ML DISP.SYRIN. ONE (09:07)
[2021-06-19] MEDS ORDERED: MIDAZOLAM HCL/PF 5 MG/5 ML VIAL. ONE (09:14)
[2021-06-19] MEDS ORDERED: FLUMAZENIL 0.5 MG/5 ML VIAL. IV ONE (09:15)
[2021-06-19] MEDS ORDERED: fentaNYL PF VIAL 250 MCG/5 ML VIAL ONE (09:15)
[2021-06-19] MEDS ORDERED: NALOXONE 0.4 MG/ML VIAL. ONE (09:15)
[2021-06-19] MEDS ORDERED: MIDAZOLAM HCL/PF 5 MG/5 ML VIAL. IV ONE (09:30)
[2021-06-19] MEDS ORDERED: fentaNYL PF VIAL 250 MCG/5 ML VIAL IV ONE (09:30)
[2021-06-19] MEDS ORDERED: LIDOCAINE WITH 8.4% SOD BICARB 3 ML DISP.SYRIN. IJ ONE (09:30)
--- NOTE | 2021-06-19 10:13 | PDOC ---
Provider Note Date of Service: DATE: 06/19/21 TIME: 10:11 Provider Note IR NOTE Patient presented as outpatient for t12 mass biopsy Found to have large right pneumothorax as well. Biopsy performed. Chest tube placed. Contacted Hospitalist, who came an assessed patient during procedure. Patient will be admitted for further management. Justifications for Admission Other Justification SHIVAM ROJAS MD Jun 19, 2021 10:13
[2021-06-19] MEDS ORDERED: tiZANidine 4 MG TABLET. PO PRN (10:15)
--- NOTE | 2021-06-19 10:15 | NUR ---
Admitted to unit by bed from IR. Pt alert and oriented x's 4. No c/o at this time. Chest tube on anterior right chest d/i and hooked up to continuos suction at -20cm H2O. Dressing on posterior right back is d/i with 4x4 and OpSite. O2 at 3l per n/c and sating at 94%. Oriented to room and controls. Side rails up x's 2 with call light in reach. Family at bedside. Cont. monitor.
--- NOTE | 2021-06-19 10:50 | HP ---
DATE OF SERVICE: 06/19/2021 ADMIT DATE: 06/19/2021 CHIEF COMPLAINT: Pneumothorax. HISTORY OF PRESENT ILLNESS: The patient is a pleasant middle-aged male who quit smoking 10 years ago, but now he has got a lytic lesion on his spine were concerned, this could be a cancer. He was sent in for a biopsy with Dr. Causey in Interventional Radiology lab. While on the table, they did some surveillance imaging and he has a large left pneumothorax. Dr. Causey called me. I am down here now in the Interventional Radiology lab. We are going to admit the patient with a chest tube and we are going to go ahead and do the biopsy after we get a chest tube placed. PAST MEDICAL HISTORY: The above-mentioned lytic lesion in his vertebral body, hyperlipidemia, hypertension, previous tobacco abuse, diabetes, hypothyroidism, muscle spasms, recent COVID-19. ALLERGIES: None. FAMILY HISTORY: Diabetes. SOCIAL HISTORY: He quit smoking 10 years ago. No drink or drugs. MEDICATIONS: Reviewed. He is on tizanidine, simvastatin, metoprolol, lisinopril, aspirin, hydrocodone, metformin, Synthroid, and, Onglyza. REVIEW OF SYSTEMS: GENERAL: No history of weight change, weakness or fevers. SKIN: No bruising, hair changes or rashes. EYES: No blurred, double or loss of vision. NOSE AND THROAT: No history of nosebleeds, hoarseness or sore throat. HEART: No history of palpitations, chest pain or shortness of breath on exertion. LUNGS: He complains of shortness of breath. GASTROINTESTINAL: Denies changes in appetite, nausea, vomiting, diarrhea or constipation. GENITOURINARY: No history of frequency, urgency, hesitancy or nocturia. NEUROLOGIC: Denies history of numbness, tingling, tremor or weakness. PSYCHIATRIC: No history of panic, anxiety or depression. ENDOCRINE: No history of heat or cold intolerance, polyuria or polydipsia. EXTREMITIES: Denies muscle weakness, joint pain, pain on walking or stiffness. PHYSICAL EXAMINATION: VITALS: Within normal limits and are stable. GENERAL: No apparent distress. Alert and oriented. HEENT: Normal cephalic atraumatic, external auditory canals are patent EYES: Extraocular muscles are intact, pupils are equally round and reactive to light and accommodation MUSCULOSKELETAL: Well developed, well nourished, good range of motion ENDOCRINE: No thyromegaly was palpated LYMPHATICS: No cervical chain or axillary nodes were noted HEMATOPOIETIC: No bruising NECK: Supple, no JVD, no thyromegaly was noted. LUNGS: He has decreased breath sounds. He has got a large pneumothorax on the imaging. HEART: RRR, S1, S2 present. Peripheral pulses intact, no obvious murmurs were noted. ABDOMEN: Soft, nontender. Positive bowel sounds no organomegaly, normal bowel sounds. EXTREMITIES: Without any cyanosis, clubbing, or edema. Pedal pulses intact, Homans sign is negative. NEUROLOGIC: Normal speech, normal tone. A and O x 3, moves all extremities, no obvious focal deficits. PSYCHIATRIC: Normal affect, normal mood. Stable. SKIN: No ulcerations or rashes, good skin turgor, no jaundice. VASCULAR: Good capillary refill, neurovascular bundle appears to be intact. LABORATORY DATA: INR is 1. ASSESSMENT AND PLAN: Vertebral body lytic lesion with incidental finding of a large pneumothorax. The patient is being admitted. We will consult Pulmonary Medicine. We were placing a chest tube. We will trend his labs. Home meds. Deep venous thrombosis prophylaxis. Full code. SAUL/MCKENZIE DR: Mikey TID: [id number]
[2021-06-19] MEDS: SIMVASTATIN 20 MG TABLET PO SCH (11:00)
[2021-06-19] MEDS: LISINOPRIL 10 MG TABLET PO SCH (11:00)
[2021-06-19] MEDS: METOPROLOL SUCC 24HR ER 50 MG TAB.ER.24H. PO SCH (11:00)
[2021-06-19] MEDS: LINAGLIPTIN 5 MG TABLET PO SCH (11:00)
[2021-06-19] MEDS: ASPIRIN ENTERIC COATED 81 MG TABLET.DR. PO SCH (11:00)
[2021-06-19] MEDS: HYDROcodone/APAP 5/325MG 1 TAB TABLET PO PRN ×3 (11:24→20:21)
--- NOTE | 2021-06-19 15:11 | PDOC ---
PULMONARY PROGRESS NOTES DATE: 06/19/21 TIME: 15:02 Vitals Vital Signs Date Time Temp Pulse Resp B/P (MAP) Pulse Ox O2 Delivery O2 Flow Rate FiO2 06/19/21 12:00 95 Nasal Cannula 3.0 06/19/21 11:45 86 156/101 (119) 06/19/21 10:05 22 06/19/21 08:41 98.0 98.0 Labs Laboratory Tests Test 06/19/21 08:30 Prothrombin Time 13.4 SEC (11.7-14.0) Prothromb Time International Ratio 1.0 (0.8-1.1) Laboratory Tests Test 06/19/21 08:30 Prothrombin Time 13.4 SEC (11.7-14.0) Prothromb Time International Ratio 1.0 (0.8-1.1) Medications Active Scripts Medications Dose Route/Sig Max Daily Dose Days Date Category Hydrocodone-Apap 5-325 (Hydrocodone Bit/Acetaminophen) 1 Tab Tablet 1 Tab PO PRN Q6HRS PRN 06/19/21 Reported Tizanidine Hcl 4 Mg Tablet 2 Mg PO TID PRN 06/19/21 Reported Aspir 81 (Aspirin) 81 Mg Tablet.dr 81 Mg PO DAILY 11/06/13 Reported Lisinopril 10 Mg Tablet 10 Mg PO DAILY 11/06/13 Reported Onglyza (Saxagliptin Hcl) 5 Mg Tablet 5 Mg PO DAILY 11/06/13 Reported Metformin Hcl 500 Mg Tablet 500 Mg PO DAILY 11/06/13 Reported Levothyroxine Sodium 112 Mcg Tablet 112 Mcg PO DAILYAC 11/06/13 Reported Toprol Xl (Metoprolol Succinate) 50 Mg Tab.er.24h 50 Mg PO DAILY 11/06/13 Reported Simvastatin 20 Mg Tablet 20 Mg PO DAILY 11/06/13 Reported Impression . Full consult dictated Pneumothorax related to pneumatocele, emphysema, previous Covid T12 mass status post biopsy See orders HANNAH HERNANDEZ MD Jun 19, 2021 15:11
[2021-06-19] MEDS ORDERED: ALBUTEROL SULFATE 2.5 MG/3 ML NEBU. NEB PRN (15:15)
--- NOTE | 2021-06-19 15:26 | RAD ---
EXAM: Chest, single view. HISTORY: Pneumothorax. COMPARISON: CT dated 06/19/2021. FINDINGS: A frontal view of the chest is obtained. There is a right pleural drainage catheter overlyi ng the superior right thorax. The recently demonstrated pneumothorax is no longer seen. There is coar se diffuse increased interstitial opacity due to emphysema and fibrosis. The thick-walled cavitary le kayleen within the posterior right upper lobe is not well seen radiographic with. The heart is normal in size. There is no pleural effusion. IMPRESSION: 1. Right pleural drainage catheter. No residual pneumothorax is seen. 2. Severe emphysema with superimposed pulmonary fibrosis. The psoas evaluation for interstitial infil trate. 3. Note is made that a thick-walled cavitary lesion within the right lung is not well seen radiograph ically. Please refer to the prior CT dated 04/05/2021 for characterization of this finding. Electronically signed by: Sandy Torres MD (06/19/2021 3:24 PM) [id number]
--- NOTE | 2021-06-19 15:26 | RAD ---
06/19/2021 1. Biopsy of paraspinal and spinal mass, T12, right diaphragm 2. Placement of a right-sided chest tube Indication: The patient was scheduled as an outpatient for a CT-guided biopsy of a paraspinal and spi nal mass at T12 pathologic fracture, but upon presentation was found to have increasing shortness of breath. Initial imaging performed during biopsy demonstrated a large right pneumothorax in addition t o the mass at T12. Consent: The procedure was explained in its entirety to the patient or the patients designated repres entative by a member of the treatment team, including a discussion of the risks, benefits and commonl y accepted alternatives to the procedure, as well as the expected consequences of no therapy whatsoev er. Discussion of the risks included, but was not limited to, those that are most frequent and thos e that are rare but possibly severe or life-threatening, as well as the possibility of unforeseen com plications. Discussion: The patient was placed in the prone position. A timeout procedure was performed. CT imaging was obtai garth. This redemonstrated a paraspinal and spinal mass at T12 which appears to involve the right hemid iaphragm. The patient was also found to have a large pneumothorax. This is likely a spontaneous pneum othorax secondary to rupture of multiple large blebs. Sedation had not yet been administered, therefo re the situation was discussed with the patient, an additional consent was obtained for placement of chest tube. This is also briefly discussed with the patient's family. A timeout procedure was perform ed. The overlying posterior chest was prepped and draped using sterile barrier technique. 1% lidocaine wa s administered for local anesthesia. Under intermittent CT guidance a 17-gauge needle was advanced in to the mass and core biopsy samples were obtained. The needle was removed. The patient was placed in the supine position. Anterior chest was prepped and draped using sterile barrier technique. Under int ermittent CT guidance a 5 Icelandic sheathed needle was advanced to the pleural space. A guidewire was a dvanced into pleural space over which, following dilatation, an 8 Icelandic pigtail drainage catheter wa s placed. Air was freely aspirated. Catheter position was confirmed with CT. Catheter was connected t o Pleur-evac device set to -20 cm water and continuous suction was applied. The patient reported imme diate improvement in shortness of breath. IMPRESSION: 1. Biopsy of the right paraspinal vertebral body mass, with CT guidance. 2. Placement of a right chest tube with CT guidance. Hospitalist was contacted, who came to the [facility] dure room, and evaluated the patient during the procedure. The patient will be admitted following the procedure. CT DOSING PQRS STATEMENT: One or more of the following individualized dose reduction techniques were utilized for this examinat ion: 1. Automated exposure control 2. Adjustment of the mA and/or kV according to patient size 3. Use of iterative reconstruction technique Electronically signed by: Danny Lopez MD (06/19/2021 3:23 PM) [id number]
[2021-06-19] MEDS ORDERED: METO-239 PO (15:46)
[2021-06-19] MEDS ORDERED: LEVO200T5 PO (15:46)
--- NOTE | 2021-06-19 16:34 | NUR ---
Pt refused several medications this morning. State no longer on them. Will discuss with Dr. Whitlock in am.
[2021-06-19] MEDS: oxyCODONE/APAP 5/325 1 TAB TABLET PO PRN (19:41)
[2021-06-20] MEDS: HYDROcodone/APAP 5/325MG 1 TAB TABLET PO PRN ×2 (00:53→04:58)
--- NOTE | 2021-06-20 00:57 | CONS ---
DATE OF CONSULTATION: 06/19/2021 ATTENDING PHYSICIAN: Dr. Whitlock. REASON FOR CONSULTATION: The patient is seen in pulmonary consultation at the request of Dr. Whitlock for pneumothorax. HISTORY OF PRESENT ILLNESS: The patient is a 66-year-old male well known to me from previous hospitalization. He had a prolonged hospitalization for COVID-19 viral pneumonia. He had a trach in place. It was eventually decannulated. He was discharged home on high flow oxygen, he is down to 2-4 liters of oxygen, 2 at rest, 4 with exertion. The last time the patient was seen in the office back in April. He was being followed for a right-sided thick wall cavitary lesion. He underwent a bronchoscopy, revealed no endobronchial lesion. The patient was treated for empyema for several months. I took him off his Augmentin. He was doing well at that time. He had a CT chest, which showed no pneumothorax. There were changes compatible with lung damage from his previous COVID-19. There was evidence of multiple pneumatoceles along with severe emphysema. The patient presented to his primary care doctor's office, Dr. Whitlock, with some pain mainly in the back. He underwent evaluation, was found to have a lytic lesion in the spine. Subsequently, the patient was scheduled for outpatient biopsy, presented with a T12 mass. Prior to his biopsy, x-rays revealed a large incidental pneumothorax. The chest tube was placed and the biopsy was performed. He was admitted. I was asked to see him in consultation. The patient states he has had back pain for quite some time along with new onset of shortness of breath and some chest discomfort, but he did not seek any medical attention. As a consequence, he now presents with an incidental finding of a right pneumothorax. He has a chest tube in place. He feels better. His O2 saturation have risen from 89% to 95%. He has no air leak, currently on chest tube. PAST MEDICAL HISTORY: Remarkable for chronic respiratory failure, severe lung damage from previous COVID-19. He has multiple pneumatoceles on CT scan. He has a history of tobacco disorder, tobacco dependence, currently in remission. He has a history of type 2 diabetes, cardiomyopathy and emphysema. MEDICATIONS: List from home was reviewed. Current medication list was reviewed. SOCIAL HISTORY: He is currently not smoking. FAMILY HISTORY: Noncontributory. REVIEW OF SYSTEMS: As indicated above, otherwise 10-point system was reviewed and negative. PHYSICAL EXAMINATION: VITAL SIGNS: Stable. O2 saturation currently on 3 liters was greater than 92%. HEENT: Eyes: The sclerae were nonicteric. NECK: Jugular venous distention was not elevated. No lymphadenopathy. CHEST: Full expansion. LUNGS: Adequate flow with no wheezes. CARDIOVASCULAR: Regular rate and rhythm with S1, S2, no S3. ABDOMEN: Soft, nontender, nondistended. EXTREMITIES: No clubbing, cyanosis or edema. LABORATORY DATA: Reviewed. INR was 1.0. IMPRESSION: 1. Hnhyl-rl-wjuoawk respiratory failure, multifactorial. 2. Spontaneous pneumothorax in a patient with a history of COVID with severe emphysema and previous scans revealing pneumatoceles. 3. COVID-19 viral pneumonia, hospitalized for a prolonged period of time, he was at [facility], for quite some time. He was discharged home back in 06/2020. 4. History of right-sided cavitary lesion treated for lung abscess, with Augmentin for approximately 2-[address] chest revealing resolution. 5. Type 2 diabetes. 6. Mild narrowing of the upper trachea from previous tracheotomy. 7. 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 8. T12 mass, status post biopsy. DISCUSSION: Suspect pneumothorax is a result of his lung injury from previous COVID. He does have pneumatoceles and severe emphysema. PLAN: 1. Continue chest tube placement. Repeat chest x-ray. 2. Follow pathology report on T12 mass biopsy. 3. Continue oxygen supplementation. 4. Monitor blood sugars. 5. Continue home medications. I do appreciate the privilege and sharing in the patient's care. CARLOS/ISABELLA/GUNNAR DR: CARLOS/kapil TID: [id number]
[2021-06-20 03:00] VITALS: BP 111/57
[2021-06-20 06:35] LABS: BASO # 0.1 x10^3/uL (0.0-0.2); BASO % 0 % (0-3); EOS # 0.7 x10^3/uL (0.0-0.7); EOS % 5 % (0-3); HEMATOCRIT 37.8 % (39.0-53.0); HEMOGLOBIN 12.2 g/dL (13.0-17.5); LYMPH # 3.8 x10^3/uL (1.0-4.8); LYMPH % 28 % (24-48); MEAN CORPUSCULAR HEMOGLOBIN 26 pg (25-35); MEAN CORPUSCULAR HGB CONC 32 g/dL (31-37); MEAN CORPUSCULAR VOLUME 80 fL (79-100); MONO # 1.1 x10^3/uL (0.0-1.1); MONO % 8 % (0-9); NEUT # 8.1 x10^3/uL (1.8-7.7); NEUT % 59 % (31-73); PLATELET COUNT 388 x10^3/uL (140-400); WHITE BLOOD COUNT 13.6 x10^3/uL (4.0-11.0)
[2021-06-20 07:00] VITALS: BP 113/61
[2021-06-20 07:06] LABS: CALCIUM 8.9 mg/dL (8.5-10.1); CREATININE 0.8 mg/dL (0.7-1.3); GFR 97.3; POTASSIUM 4.6 mmol/L (3.5-5.1)
[2021-06-20] MEDS: METOPROLOL SUCC 24HR ER 50 MG TAB.ER.24H. PO SCH (08:05)
[2021-06-20] MEDS: LINAGLIPTIN 5 MG TABLET PO SCH ×2 (08:06→11:12)
[2021-06-20] MEDS: LISINOPRIL 10 MG TABLET PO SCH (08:06)
[2021-06-20] MEDS: SIMVASTATIN 20 MG TABLET PO SCH (08:07)
[2021-06-20] MEDS: ASPIRIN ENTERIC COATED 81 MG TABLET.DR. PO SCH (08:07)
[2021-06-20] MEDS: LEVOTHYROXINE 112 MCG TABLET PO SCH (08:07)
[2021-06-20] MEDS: oxyCODONE/APAP 5/325 1 TAB TABLET PO PRN ×4 (08:08→20:41)
--- NOTE | 2021-06-20 08:22 | PDOC ---
PULMONARY PROGRESS NOTES DATE: 06/20/21 TIME: 08:22 Subjective Patient not more short of air, chest tube with air leak Vitals Vital Signs Date Time Temp Pulse Resp B/P (MAP) Pulse Ox O2 Delivery O2 Flow Rate FiO2 06/20/21 08:08 Nasal Cannula 3.0 06/20/21 05:41 16 95 06/20/21 03:00 97.9 61 111/57 (75) 97.9 ROS: No Nausea, No Chest Pain, No Abdominal Pain, No Increase Cough General: Alert Cardiovascular: S1, S2 Abdomen: Soft, Non-tender Neuro Exam: Alert Extremities: No Edema Skin: Warm Labs Laboratory Tests Test 06/19/21 08:30 06/19/21 17:16 06/19/21 20:35 06/20/21 05:40 Prothrombin Time 13.4 SEC (11.7-14.0) Prothromb Time International Ratio 1.0 (0.8-1.1) Glucose (Fingerstick) 171 mg/dL (70-99) 120 mg/dL (70-99) White Blood Count 13.6 x10^3/uL (4.0-11.0) Red Blood Count 4.70 x10^6/uL (4.30-5.70) Hemoglobin 12.2 g/dL (13.0-17.5) Hematocrit 37.8 % (39.0-53.0) Mean Corpuscular Volume 80 fL (79-100) Mean Corpuscular Hemoglobin 26 pg (25-35) Mean Corpuscular Hemoglobin Concent 32 g/dL (31-37) Red Cell Distribution Width 15.0 % (11.5-14.5) Platelet Count 388 x10^3/uL (140-400) Neutrophils (%) (Auto) 59 % (31-73) Lymphocytes (%) (Auto) 28 % (24-48) Monocytes (%) (Auto) 8 % (0-9) Eosinophils (%) (Auto) 5 % (0-3) Basophils (%) (Auto) 0 % (0-3) Neutrophils # (Auto) 8.1 x10^3/uL (1.8-7.7) Lymphocytes # (Auto) 3.8 x10^3/uL (1.0-4.8) Monocytes # (Auto) 1.1 x10^3/uL (0.0-1.1) Eosinophils # (Auto) 0.7 x10^3/uL (0.0-0.7) Basophils # (Auto) 0.1 x10^3/uL (0.0-0.2) Sodium Level 138 mmol/L (136-145) Potassium Level 4.6 mmol/L (3.5-5.1) Chloride Level 101 mmol/L (98-107) Carbon Dioxide Level 28 mmol/L (21-32) Anion Gap 9 (6-14) Blood Urea Nitrogen 20 mg/dL (8-26) Creatinine 0.8 mg/dL (0.7-1.3) Estimated GFR (Cockcroft-Gault) 97.3 Glucose Level 110 mg/dL (70-99) Calcium Level 8.9 mg/dL (8.5-10.1) Test 06/20/21 08:05 Glucose (Fingerstick) 123 mg/dL (70-99) Laboratory Tests Test 06/19/21 08:30 06/19/21 17:16 06/19/21 20:35 06/20/21 05:40 Prothrombin Time 13.4 SEC (11.7-14.0) Prothromb Time International Ratio 1.0 (0.8-1.1) Glucose (Fingerstick) 171 mg/dL (70-99) 120 mg/dL (70-99) White Blood Count 13.6 x10^3/uL (4.0-11.0) Red Blood Count 4.70 x10^6/uL (4.30-5.70) Hemoglobin 12.2 g/dL (13.0-17.5) Hematocrit 37.8 % (39.0-53.0) Mean Corpuscular Volume 80 fL (79-100) Mean Corpuscular Hemoglobin 26 pg (25-35) Mean Corpuscular Hemoglobin Concent 32 g/dL (31-37) Red Cell Distribution Width 15.0 % (11.5-14.5) Platelet Count 388 x10^3/uL (140-400) Neutrophils (%) (Auto) 59 % (31-73) Lymphocytes (%) (Auto) 28 % (24-48) Monocytes (%) (Auto) 8 % (0-9) Eosinophils (%) (Auto) 5 % (0-3) Basophils (%) (Auto) 0 % (0-3) Neutrophils # (Auto) 8.1 x10^3/uL (1.8-7.7) Lymphocytes # (Auto) 3.8 x10^3/uL (1.0-4.8) Monocytes # (Auto) 1.1 x10^3/uL (0.0-1.1) Eosinophils # (Auto) 0.7 x10^3/uL (0.0-0.7) Basophils # (Auto) 0.1 x10^3/uL (0.0-0.2) Sodium Level 138 mmol/L (136-145) Potassium Level 4.6 mmol/L (3.5-5.1) Chloride Level 101 mmol/L (98-107) Carbon Dioxide Level 28 mmol/L (21-32) Anion Gap 9 (6-14) Blood Urea Nitrogen 20 mg/dL (8-26) Creatinine 0.8 mg/dL (0.7-1.3) Estimated GFR (Cockcroft-Gault) 97.3 Glucose Level 110 mg/dL (70-99) Calcium Level 8.9 mg/dL (8.5-10.1) Test 06/20/21 08:05 Glucose (Fingerstick) 123 mg/dL (70-99) Medications Active Scripts Medications Dose Route/Sig Max Daily Dose Days Date Category Hydrocodone-Apap 5-325 (Hydrocodone Bit/Acetaminophen) 1 Tab Tablet 1 Tab PO PRN Q6HRS PRN 06/19/21 Reported Tizanidine Hcl 4 Mg Tablet 2 Mg PO TID PRN 06/19/21 Reported Aspir 81 (Aspirin) 81 Mg Tablet.dr 81 Mg PO DAILY 11/06/13 Reported Lisinopril 10 Mg Tablet 10 Mg PO DAILY 11/06/13 Reported Onglyza (Saxagliptin Hcl) 5 Mg Tablet 5 Mg PO DAILY 11/06/13 Reported Metformin Hcl 500 Mg Tablet 500 Mg PO DAILY 11/06/13 Reported Levothyroxine Sodium 112 Mcg Tablet 112 Mcg PO DAILYAC 11/06/13 Reported Toprol Xl (Metoprolol Succinate) 50 Mg Tab.er.24h 50 Mg PO DAILY 11/06/13 Reported Simvastatin 20 Mg Tablet 20 Mg PO DAILY 11/06/13 Reported Impression . IMPRESSION: 1. Hwxzi-kv-nllfaxm respiratory failure, multifactorial. 2. Spontaneous pneumothorax in a patient with a history of COVID with severe emphysema and previous scans revealing pneumatoceles. 3. COVID-19 viral pneumonia, hospitalized for a prolonged period of time, he was at [facility], for quite some time. He was discharged home back in 06/2020. 4. History of right-sided cavitary lesion treated for lung abscess, with Augmentin for approximately 2-[address] chest revealing resolution. 5. Type 2 diabetes. 6. Mild narrowing of the upper trachea from previous tracheotomy. 7. 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 8. T12 mass, status post biopsy. Plan . Chest x-ray reviewed, small pneumo Chest tube with air leak Continue wall suction Follow-up on report on T-tube mass biopsy Discussed with family at the bedside patient may be here between 2 to 10 days DISCUSSION: Suspect pneumothorax is a result of his lung injury from previous COVID. He does have pneumatoceles and severe emphysema. PLAN: 1. Continue chest tube placement. Repeat chest x-ray. 2. Follow pathology report on T12 mass biopsy. 3. Continue oxygen supplementation. 4. Monitor blood sugars. 5. Continue home medications. I do appreciate the privilege and sharing in the patient's care. HANNAH HERNANDEZ MD Jun 20, 2021 08:22
--- NOTE | 2021-06-20 08:26 | RAD ---
EXAM: Chest, single view. HISTORY: Pneumothorax. COMPARISON: 06/19/2021 FINDINGS: A frontal view of the chest is obtained. There has been interval increase in a small right pneumothorax. There is a right pleural drainage catheter repositioned over the lateral right mid lowe r thorax. There is stable coarse diffuse increased interstitial opacity due to emphysema and fibrosis . There is right suprahilar opacity likely due to the recently demonstrated thick-walled cavitary les ion on the CT performed 04/05/2021. There is no pleural effusion. The heart is normal in size. IMPRESSION: 1. Increase in a small right pneumothorax. The right pleural drainage catheter appears to be repositi oned. 2. Emphysema and pulmonary fibrosis. This limits evaluation for interstitial infiltrate and the previ ously demonstrated right upper lobe cavitary lesion. Findings were discussed with Rah, a nurse on the patient's floor, at 0815 hours on 06/20/2021. Electronically signed by: Sandy Torres MD (06/20/2021 8:23 AM) [id number]
--- NOTE | 2021-06-20 09:05 | PDOC ---
PROGRESS NOTES Date of Service: DATE: 06/20/21 TIME: 09:03 Subjective Subjective pt feels better today, rt chest pleuravac Objective Objective Vital Signs Date Time Temp Pulse Resp B/P (MAP) Pulse Ox O2 Delivery O2 Flow Rate FiO2 06/20/21 08:08 Nasal Cannula 3.0 06/20/21 07:00 97.7 53 18 113/61 (78) 95 97.7 Intake and Output 06/20/21 07:00 Intake Total 540 ml Output Total 455 ml Balance 85 ml Intake Oral 540 ml Output Urine Total 450 ml Chest Tube Drainage Total 5 ml Physical Exam Abdomen: Soft Heart: Regular rate, Normal S1, Normal S2 Extremities: No clubbing General: Alert HEENT: Atraumatic Lungs: Clear to auscultation MUSCULOSKELETAL: No deformity Neck: No JVD Neuro: Normal speech Psych/Mental Status: Mental status NL Skin: No breakdown COMMENT rt chest pleuravac Assessment Assessment IMPRESSION: 1. Gcraj-xo-ecutsyf respiratory failure, multifactorial. 2. Spontaneous pneumothorax in a patient with a history of COVID with severe emphysema and previous scans revealing pneumatoceles. 3. COVID-19 viral pneumonia, hospitalized for a prolonged period of time, . 4. History of right-sided cavitary lesion treated for lung abscess, with Augmentin for approximately 2-[address] chest revealing resolution. 5. Type 2 diabetes. 6. Mild narrowing of the upper trachea from previous tracheotomy. 7. 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 8. T12 mass, status post biopsy. PLAN:labs ok will speak with pathologist cxr noted. 1. Continue chest tube placement. Repeat chest x-ray. 2. Follow pathology report on T12 mass biopsy. 3. Continue oxygen supplementation. 4. Monitor blood sugars. 5. Continue home medications. Comment Review of Relevant I have reviewed the following items del (where applicable) has been applied. Labs Laboratory Tests Test 06/19/21 17:16 06/19/21 20:35 06/20/21 05:40 06/20/21 08:05 Glucose (Fingerstick) 171 mg/dL (70-99) 120 mg/dL (70-99) 123 mg/dL (70-99) White Blood Count 13.6 x10^3/uL (4.0-11.0) Red Blood Count 4.70 x10^6/uL (4.30-5.70) Hemoglobin 12.2 g/dL (13.0-17.5) Hematocrit 37.8 % (39.0-53.0) Mean Corpuscular Volume 80 fL (79-100) Mean Corpuscular Hemoglobin 26 pg (25-35) Mean Corpuscular Hemoglobin Concent 32 g/dL (31-37) Red Cell Distribution Width 15.0 % (11.5-14.5) Platelet Count 388 x10^3/uL (140-400) Neutrophils (%) (Auto) 59 % (31-73) Lymphocytes (%) (Auto) 28 % (24-48) Monocytes (%) (Auto) 8 % (0-9) Eosinophils (%) (Auto) 5 % (0-3) Basophils (%) (Auto) 0 % (0-3) Neutrophils # (Auto) 8.1 x10^3/uL (1.8-7.7) Lymphocytes # (Auto) 3.8 x10^3/uL (1.0-4.8) Monocytes # (Auto) 1.1 x10^3/uL (0.0-1.1) Eosinophils # (Auto) 0.7 x10^3/uL (0.0-0.7) Basophils # (Auto) 0.1 x10^3/uL (0.0-0.2) Sodium Level 138 mmol/L (136-145) Potassium Level 4.6 mmol/L (3.5-5.1) Chloride Level 101 mmol/L (98-107) Carbon Dioxide Level 28 mmol/L (21-32) Anion Gap 9 (6-14) Blood Urea Nitrogen 20 mg/dL (8-26) Creatinine 0.8 mg/dL (0.7-1.3) Estimated GFR (Cockcroft-Gault) 97.3 Glucose Level 110 mg/dL (70-99) Calcium Level 8.9 mg/dL (8.5-10.1) Microbiology 06/19/21 Gram Stain - Final, Resulted 06/19/21 Aerobic and Anaerobic Culture - Preliminary, Resulted Medications Current Medications Acetaminophen/ Hydrocodone Bitart (Lortab 5/325) 1 tab PRN Q4HRS PRN PO PAIN Last administered on 06/20/21at 04:58; Start 06/19/21 at 16:45 Acetaminophen/ Hydrocodone Bitart (Lortab 5/325) 1 tab PRN Q6HRS PRN PO PAIN Last administered on 06/19/21at 16:10; Start 06/19/21 at 10:15; Stop 06/19/21 at 16:39; Status DC Albuterol Sulfate (Ventolin Neb Soln) 3 mg PRN Q6HRS PRN NEB SHORTNESS OF BREATH; Start 06/19/21 at 15:15 Aspirin (Ecotrin) 81 mg DAILY PO Last administered on 06/20/21at 08:07; Start 06/19/21 at 11:00 Fentanyl Citrate (Fentanyl 5ml Vial) 250 mcg 1X ONCE IV Last administered on 06/19/21at 09:30; Start 06/19/21 at 09:30; Stop 06/19/21 at 09:31; Status DC Fentanyl Citrate (Fentanyl 5ml Vial) 250 mcg STK-MED ONCE .ROUTE ; Start 06/19/21 at 09:15; Stop 06/19/21 at 09:15; Status DC Flumazenil (Romazicon) 0.5 mg STK-MED ONCE IV ; Start 06/19/21 at 09:15; Stop 06/19/21 at 09:15; Status DC Levothyroxine Sodium (Synthroid) 112 mcg DAILYAC PO Last administered on 06/20/21at 08:07; Start 06/20/21 at 07:30 Lidocaine HCl (Buffered Lidocaine 1%) 3 ml 1X ONCE IJ Last administered on 06/19/21at 09:32; Start 06/19/21 at 09:30; Stop 06/19/21 at 09:31; Status DC Lidocaine HCl (Buffered Lidocaine 1%) 3 ml STK-MED ONCE .ROUTE ; Start 06/19/21 at 09:07; Stop 06/19/21 at 09:07; Status DC Linagliptin (Tradjenta) 5 mg DAILY PO ; Start 06/19/21 at 11:00 Lisinopril (Prinivil) 10 mg DAILY PO ; Start 06/19/21 at 11:00 Metoprolol Succinate (Toprol Xl) 50 mg DAILY PO ; Start 06/19/21 at 11:00 Midazolam HCl (Versed) 5 mg 1X ONCE IV Last administered on 06/19/21at 09:30; Start 06/19/21 at 09:30; Stop 06/19/21 at 09:31; Status DC Midazolam HCl (Versed) 5 mg STK-MED ONCE .ROUTE ; Start 06/19/21 at 09:14; Stop 06/19/21 at 09:15; Status DC Naloxone HCl (Narcan) 0.4 mg STK-MED ONCE .ROUTE ; Start 06/19/21 at 09:15; Stop 06/19/21 at 09:15; Status DC Oxycodone/ Acetaminophen (Percocet 5/325) 1 tab PRN Q4HRS PRN PO PAIN Last administered on 06/20/21at 08:08; Start 06/19/21 at 10:15 Simvastatin (Zocor) 20 mg DAILY PO Last administered on 06/20/21at 08:07; Start 06/19/21 at 11:00 Tizanidine HCl (Zanaflex) 2 mg PRN TID PRN PO MUSCLE SPASMS; Start 06/19/21 at 10:15 Vitals/I & O Vital Sign - Last 24 Hours 06/19/21 06/19/21 06/19/21 06/19/21 09:24 09:30 09:35 09:40 Pulse 83 79 82 Resp B/P (MAP) 126/88 (101) 134/85 (101) Pulse Ox 91 96 96 96 O2 Delivery Nasal Cannula Nasal Cannula Nasal Cannula Nasal Cannula O2 Flow Rate 4.0 3.0 6.0 6.0 06/19/21 06/19/21 06/19/21 06/19/21 09:45 09:50 09:55 10:05 Pulse 83 83 80 86 Resp B/P (MAP) 140/80 (100) 148/85 (106) 150/96 (114) Pulse Ox 96 94 92 97 O2 Delivery Nasal Cannula Nasal Cannula Nasal Cannula O2 Flow Rate 6.0 4.0 6.0 06/19/21 06/19/21 06/19/21 06/19/21 10:40 11:00 11:15 11:24 Pulse 84 76 B/P (MAP) 114/77 (89) 117/74 (88) O2 Delivery Nasal Cannula Nasal Cannula O2 Flow Rate 3.0 3.0 06/19/21 06/19/21 06/19/21 06/19/21 11:30 11:45 12:00 12:00 Pulse 78 86 78 B/P (MAP) 115/74 (88) 156/101 (119) 156/101 (119) Pulse Ox 95 O2 Delivery Nasal Cannula O2 Flow Rate 3.0 06/19/21 06/19/21 06/19/21 06/19/21 15:00 16:10 19:00 19:41 Temp 98.2 98.3 98.2 98.3 Pulse 67 56 Resp 18 16 18 B/P (MAP) 96/57 (70) 112/62 (79) Pulse Ox 94 96 94 O2 Delivery Nasal Cannula Room Air Nasal Cannula Nasal Cannula O2 Flow Rate 3.0 3.0 3.0 06/19/21 06/19/21 06/19/21 06/19/21 20:00 20:19 20:21 20:59 Resp 16 18 16 Pulse Ox 94 94 94 O2 Delivery Nasal Cannula Nasal Cannula Nasal Cannula Nasal Cannula O2 Flow Rate 3.0 3.0 3.0 3.0 06/19/21 06/20/21 06/20/21 06/20/21 23:00 00:53 02:02 03:00 Temp 98.1 97.9 98.1 97.9 Pulse 67 61 Resp 16 16 16 16 B/P (MAP) 114/63 (80) 111/57 (75) Pulse Ox 97 97 97 95 O2 Delivery Nasal Cannula Nasal Cannula Nasal Cannula Nasal Cannula O2 Flow Rate 3.0 3.0 3.0 3.0 06/20/21 06/20/21 06/20/21 06/20/21 04:58 05:41 07:00 08:00 Temp 97.7 97.7 Pulse 53 Resp 16 16 18 B/P (MAP) 113/61 (78) Pulse Ox 95 95 95 O2 Delivery Nasal Cannula Nasal Cannula Nasal Cannula Nasal Cannula O2 Flow Rate 3.0 3.0 3.0 3.0 06/20/21 08:08 O2 Delivery Nasal Cannula O2 Flow Rate 3.0 Intake and Output 06/19/21 06/19/21 06/20/21 15:00 23:00 07:00 Intake Total 180 ml 360 ml Output Total 5 ml 450 ml Balance 180 ml 355 ml -450 ml Justifications for Admission Other Justification ROSE OCONNELL MD Jun 20, 2021 09:05
[2021-06-20 11:00] VITALS: BP 120/65
--- NOTE | 2021-06-20 12:28 | NUR ---
SW following. Discussed with RN, pt from home, 3L (uses oxygen at home), ada diet, bed rest, chest tube. Pulmonology following. RN advised no SW needs at this time. SW will continue to follow.
[2021-06-20 15:00] VITALS: BP 112/60
[2021-06-20 19:00] VITALS: BP 120/69
[2021-06-20 23:00] VITALS: BP 126/65
[2021-06-21] MEDS: oxyCODONE/APAP 5/325 1 TAB TABLET PO PRN ×2 (01:23→06:02)
[2021-06-21 03:00] VITALS: BP 106/66
[2021-06-21 06:46] LABS: BASO % 0 % (0-3); EOS # 0.4 x10^3/uL (0.0-0.7); EOS % 3 % (0-3); HEMOGLOBIN 12.8 g/dL (13.0-17.5); LYMPH # 3.9 x10^3/uL (1.0-4.8); LYMPH % 30 % (24-48); MEAN CORPUSCULAR HEMOGLOBIN 26 pg (25-35); MEAN CORPUSCULAR HGB CONC 32 g/dL (31-37); MEAN CORPUSCULAR VOLUME 80 fL (79-100); MONO # 0.9 x10^3/uL (0.0-1.1); MONO % 7 % (0-9); NEUT # 7.9 x10^3/uL (1.8-7.7); NEUT % 60 % (31-73); PLATELET COUNT 391 x10^3/uL (140-400); RED BLOOD COUNT 4.97 x10^6/uL (4.30-5.70); RED CELL DISTRIBUTION WIDTH 14.9 % (11.5-14.5); WHITE BLOOD COUNT 13.2 x10^3/uL (4.0-11.0)
[2021-06-21 06:58] LABS: CREATININE 0.8 mg/dL (0.7-1.3); GFR 97.3; POTASSIUM 4.5 mmol/L (3.5-5.1)
[2021-06-21 07:30] VITALS: BP 121/68
--- NOTE | 2021-06-21 07:32 | PDOC ---
IM PROGRESS NOTES- Subjective Subjective Has some chest pain and congestion. Objective Vitals/I&O Vital Signs Date Time Temp Pulse Resp B/P (MAP) Pulse Ox O2 Delivery O2 Flow Rate FiO2 06/21/21 06:32 16 06/21/21 03:00 98.4 66 106/66 (79) 97 Nasal Cannula 3.0 98.4 I & O0 06/20/21 06/20/21 06/21/21 15:00 23:00 07:00 Output Total 5 ml 500 ml Balance -5 ml -500 ml Physical Exam Physical Exam General Appearance - alert and in no distress Chest - decreased breath sounds at bases, chest tube in place Heart - S1 and S2 normal Abdomen - soft, non tender Neurological - alert and oriented Musculoskeletal - generalized weakness Extremities - no edema Labs Laboratory Tests Test 06/20/21 08:05 06/20/21 10:48 06/20/21 17:20 06/20/21 20:43 Glucose (Fingerstick) 123 mg/dL (70-99) H 217 mg/dL (70-99) H 94 mg/dL (70-99) 146 mg/dL (70-99) H Test 06/21/21 06:10 White Blood Count 13.2 x10^3/uL (4.0-11.0) H Red Blood Count 4.97 x10^6/uL (4.30-5.70) Hemoglobin 12.8 g/dL (13.0-17.5) L Hematocrit 40.0 % (39.0-53.0) Mean Corpuscular Volume 80 fL (79-100) Mean Corpuscular Hemoglobin 26 pg (25-35) Mean Corpuscular Hemoglobin Concent 32 g/dL (31-37) Red Cell Distribution Width 14.9 % (11.5-14.5) H Platelet Count 391 x10^3/uL (140-400) Neutrophils (%) (Auto) 60 % (31-73) Lymphocytes (%) (Auto) 30 % (24-48) Monocytes (%) (Auto) 7 % (0-9) Eosinophils (%) (Auto) 3 % (0-3) Basophils (%) (Auto) 0 % (0-3) Neutrophils # (Auto) 7.9 x10^3/uL (1.8-7.7) H Lymphocytes # (Auto) 3.9 x10^3/uL (1.0-4.8) Monocytes # (Auto) 0.9 x10^3/uL (0.0-1.1) Eosinophils # (Auto) 0.4 x10^3/uL (0.0-0.7) Basophils # (Auto) 0.0 x10^3/uL (0.0-0.2) Sodium Level 139 mmol/L (136-145) Potassium Level 4.5 mmol/L (3.5-5.1) Chloride Level 99 mmol/L (98-107) Carbon Dioxide Level 31 mmol/L (21-32) Anion Gap 9 (6-14) Blood Urea Nitrogen 23 mg/dL (8-26) Creatinine 0.8 mg/dL (0.7-1.3) Estimated GFR (Cockcroft-Gault) 97.3 Glucose Level 106 mg/dL (70-99) H Calcium Level 9.0 mg/dL (8.5-10.1) Laboratory Tests 06/21/21 06:10 Laboratory Tests 06/21/21 06:10 Assessment Assessment IMPRESSION: 1. Oeirc-sn-vlyqsup respiratory failure, multifactorial. 2. Spontaneous pneumothorax in a patient with a history of COVID with severe emphysema and previous scans revealing pneumatoceles. 3. COVID-19 viral pneumonia, hospitalized for a prolonged period of time, . 4. History of right-sided cavitary lesion treated for lung abscess, with Augmentin for approximately 2-[address] chest revealing resolution. 5. Type 2 diabetes. 6. Mild narrowing of the upper trachea from previous tracheotomy. 7. 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 8. T12 mass, status post biopsy. PLAN: Mild leukocytosis. cxr noted. 1. Continue chest tube placement. Repeat chest x-ray. 2. Follow pathology report on T12 mass biopsy. 3. Continue oxygen supplementation. 4. Monitor blood sugars. 5. Continue home medications. Increase Percocet to 7.5/325 Q4H prn. Plan Plan For more details regarding further plans, please refer to the orders. Justifications for Admission Other Justification FAZAL RENAE MD Jun 21, 2021 07:31
[2021-06-21] MEDS: LINAGLIPTIN 5 MG TABLET PO SCH (07:59)
[2021-06-21] MEDS: SIMVASTATIN 20 MG TABLET PO SCH (07:59)
[2021-06-21] MEDS: METOPROLOL SUCC 24HR ER 50 MG TAB.ER.24H. PO SCH (07:59)
[2021-06-21] MEDS: ASPIRIN ENTERIC COATED 81 MG TABLET.DR. PO SCH (07:59)
[2021-06-21] MEDS: LEVOTHYROXINE 112 MCG TABLET PO SCH (07:59)
[2021-06-21] MEDS: LISINOPRIL 10 MG TABLET PO SCH (08:00)
--- NOTE | 2021-06-21 08:45 | PDOC ---
PULMONARY PROGRESS NOTES DATE: 06/21/21 TIME: 08:45 Subjective Patient had a visit with Patient not more short of air, chest tube with air leak Vitals Vital Signs Date Time Temp Pulse Resp B/P (MAP) Pulse Ox O2 Delivery O2 Flow Rate FiO2 06/21/21 07:50 Nasal Cannula 3.0 06/21/21 07:30 98.4 69 20 121/68 (85) 95 98.4 ROS: No Nausea, No Chest Pain, No Abdominal Pain, No Increase Cough General: Alert Cardiovascular: S1, S2 Abdomen: Soft, Non-tender Neuro Exam: Alert Extremities: No Edema Skin: Warm Labs Laboratory Tests Test 06/19/21 17:16 06/19/21 20:35 06/20/21 05:40 06/20/21 08:05 Glucose (Fingerstick) 171 mg/dL (70-99) 120 mg/dL (70-99) 123 mg/dL (70-99) White Blood Count 13.6 x10^3/uL (4.0-11.0) Red Blood Count 4.70 x10^6/uL (4.30-5.70) Hemoglobin 12.2 g/dL (13.0-17.5) Hematocrit 37.8 % (39.0-53.0) Mean Corpuscular Volume 80 fL (79-100) Mean Corpuscular Hemoglobin 26 pg (25-35) Mean Corpuscular Hemoglobin Concent 32 g/dL (31-37) Red Cell Distribution Width 15.0 % (11.5-14.5) Platelet Count 388 x10^3/uL (140-400) Neutrophils (%) (Auto) 59 % (31-73) Lymphocytes (%) (Auto) 28 % (24-48) Monocytes (%) (Auto) 8 % (0-9) Eosinophils (%) (Auto) 5 % (0-3) Basophils (%) (Auto) 0 % (0-3) Neutrophils # (Auto) 8.1 x10^3/uL (1.8-7.7) Lymphocytes # (Auto) 3.8 x10^3/uL (1.0-4.8) Monocytes # (Auto) 1.1 x10^3/uL (0.0-1.1) Eosinophils # (Auto) 0.7 x10^3/uL (0.0-0.7) Basophils # (Auto) 0.1 x10^3/uL (0.0-0.2) Sodium Level 138 mmol/L (136-145) Potassium Level 4.6 mmol/L (3.5-5.1) Chloride Level 101 mmol/L (98-107) Carbon Dioxide Level 28 mmol/L (21-32) Anion Gap 9 (6-14) Blood Urea Nitrogen 20 mg/dL (8-26) Creatinine 0.8 mg/dL (0.7-1.3) Estimated GFR (Cockcroft-Gault) 97.3 Glucose Level 110 mg/dL (70-99) Calcium Level 8.9 mg/dL (8.5-10.1) Test 06/20/21 10:48 06/20/21 17:20 06/20/21 20:43 06/21/21 06:10 Glucose (Fingerstick) 217 mg/dL (70-99) 94 mg/dL (70-99) 146 mg/dL (70-99) White Blood Count 13.2 x10^3/uL (4.0-11.0) Red Blood Count 4.97 x10^6/uL (4.30-5.70) Hemoglobin 12.8 g/dL (13.0-17.5) Hematocrit 40.0 % (39.0-53.0) Mean Corpuscular Volume 80 fL (79-100) Mean Corpuscular Hemoglobin 26 pg (25-35) Mean Corpuscular Hemoglobin Concent 32 g/dL (31-37) Red Cell Distribution Width 14.9 % (11.5-14.5) Platelet Count 391 x10^3/uL (140-400) Neutrophils (%) (Auto) 60 % (31-73) Lymphocytes (%) (Auto) 30 % (24-48) Monocytes (%) (Auto) 7 % (0-9) Eosinophils (%) (Auto) 3 % (0-3) Basophils (%) (Auto) 0 % (0-3) Neutrophils # (Auto) 7.9 x10^3/uL (1.8-7.7) Lymphocytes # (Auto) 3.9 x10^3/uL (1.0-4.8) Monocytes # (Auto) 0.9 x10^3/uL (0.0-1.1) Eosinophils # (Auto) 0.4 x10^3/uL (0.0-0.7) Basophils # (Auto) 0.0 x10^3/uL (0.0-0.2) Sodium Level 139 mmol/L (136-145) Potassium Level 4.5 mmol/L (3.5-5.1) Chloride Level 99 mmol/L (98-107) Carbon Dioxide Level 31 mmol/L (21-32) Anion Gap 9 (6-14) Blood Urea Nitrogen 23 mg/dL (8-26) Creatinine 0.8 mg/dL (0.7-1.3) Estimated GFR (Cockcroft-Gault) 97.3 Glucose Level 106 mg/dL (70-99) Calcium Level 9.0 mg/dL (8.5-10.1) Test 06/21/21 07:56 Glucose (Fingerstick) 117 mg/dL (70-99) Laboratory Tests Test 06/20/21 10:48 06/20/21 17:20 06/20/21 20:43 06/21/21 06:10 Glucose (Fingerstick) 217 mg/dL (70-99) 94 mg/dL (70-99) 146 mg/dL (70-99) White Blood Count 13.2 x10^3/uL (4.0-11.0) Red Blood Count 4.97 x10^6/uL (4.30-5.70) Hemoglobin 12.8 g/dL (13.0-17.5) Hematocrit 40.0 % (39.0-53.0) Mean Corpuscular Volume 80 fL (79-100) Mean Corpuscular Hemoglobin 26 pg (25-35) Mean Corpuscular Hemoglobin Concent 32 g/dL (31-37) Red Cell Distribution Width 14.9 % (11.5-14.5) Platelet Count 391 x10^3/uL (140-400) Neutrophils (%) (Auto) 60 % (31-73) Lymphocytes (%) (Auto) 30 % (24-48) Monocytes (%) (Auto) 7 % (0-9) Eosinophils (%) (Auto) 3 % (0-3) Basophils (%) (Auto) 0 % (0-3) Neutrophils # (Auto) 7.9 x10^3/uL (1.8-7.7) Lymphocytes # (Auto) 3.9 x10^3/uL (1.0-4.8) Monocytes # (Auto) 0.9 x10^3/uL (0.0-1.1) Eosinophils # (Auto) 0.4 x10^3/uL (0.0-0.7) Basophils # (Auto) 0.0 x10^3/uL (0.0-0.2) Sodium Level 139 mmol/L (136-145) Potassium Level 4.5 mmol/L (3.5-5.1) Chloride Level 99 mmol/L (98-107) Carbon Dioxide Level 31 mmol/L (21-32) Anion Gap 9 (6-14) Blood Urea Nitrogen 23 mg/dL (8-26) Creatinine 0.8 mg/dL (0.7-1.3) Estimated GFR (Cockcroft-Gault) 97.3 Glucose Level 106 mg/dL (70-99) Calcium Level 9.0 mg/dL (8.5-10.1) Test 06/21/21 07:56 Glucose (Fingerstick) 117 mg/dL (70-99) Medications Active Scripts Medications Dose Route/Sig Max Daily Dose Days Date Category Hydrocodone-Apap 5-325 (Hydrocodone Bit/Acetaminophen) 1 Tab Tablet 1 Tab PO PRN Q6HRS PRN 06/19/21 Reported Tizanidine Hcl 4 Mg Tablet 2 Mg PO TID PRN 06/19/21 Reported Aspir 81 (Aspirin) 81 Mg Tablet.dr 81 Mg PO DAILY 11/06/13 Reported Lisinopril 10 Mg Tablet 10 Mg PO DAILY 11/06/13 Reported Onglyza (Saxagliptin Hcl) 5 Mg Tablet 5 Mg PO DAILY 11/06/13 Reported Metformin Hcl 500 Mg Tablet 500 Mg PO DAILY 11/06/13 Reported Levothyroxine Sodium 112 Mcg Tablet 112 Mcg PO DAILYAC 11/06/13 Reported Toprol Xl (Metoprolol Succinate) 50 Mg Tab.er.24h 50 Mg PO DAILY 11/06/13 Reported Simvastatin 20 Mg Tablet 20 Mg PO DAILY 11/06/13 Reported Impression . IMPRESSION: 1. [id number]-sutepjt respiratory failure, multifactorial. 2. Spontaneous pneumothorax in a patient with a history of COVID with severe emphysema and previous scans revealing pneumatoceles. 3. COVID-19 viral pneumonia, hospitalized for a prolonged period of time, he was at [facility], for quite some time. He was discharged home back in 06/2020. 4. History of right-sided cavitary lesion treated for lung abscess, with Augmentin for approximately 2-[address] chest revealing resolution. 5. Type 2 diabetes. 6. Mild narrowing of the upper trachea from previous tracheotomy. 7. 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 8. T12 mass, status post biopsy. Plan . Updated 06/21 Special stains on biopsy pending, compatible with a malignant process, patient visited with medical oncologist chest x-ray reviewed, small pneumo no change from yesterday Chest tube with air leak continues Continue wall suction HANNAH HERNANDEZ MD Jun 21, 2021 08:45
--- NOTE | 2021-06-21 09:18 | RAD ---
EXAM: Chest, single view. HISTORY: Pneumothorax. COMPARISON: 06/20/2021 FINDINGS: A frontal view of the chest is obtained. There is a stable small right pneumothorax. There is a right pleural drainage catheter overlying the lateral right mid thorax. There are coarse diffuse increased interstitial markings. There is no pleural effusion. The heart is normal in size. IMPRESSION: 1. Stable small right pneumothorax. There is a right pleural drainage catheter overlying the lateral right mid thorax. 2. Stable coarse diffuse increased interstitial opacity due to fibrosis. The previously demonstrated right upper lobe cavitary lesion is not well seen radiographically. Electronically signed by: Sandy Torres MD (06/21/2021 9:16 AM) [id number]
[2021-06-21] MEDS: oxyCODONE/APAP 7.5/325 1 TAB TABLET PO PRN ×4 (10:06→22:32)
[2021-06-21 11:34] VITALS: BP 114/56
[2021-06-21 15:18] VITALS: BP 106/67
--- NOTE | 2021-06-21 15:32 | NUR ---
SS following up with discharge planning. SS reviewed pt chart and discussed with pt RN. Pt currently requiring oxygen at three liters nasal canula. Pt has home oxygen. Chest tube in place. Discharge plan is currently to home when medically ready for discharge. SS will continue to follow for discharge planning.
[2021-06-21 19:15] VITALS: BP 115/74
[2021-06-21 23:11] VITALS: BP 118/62
[2021-06-22] MEDS: oxyCODONE/APAP 7.5/325 1 TAB TABLET PO PRN ×6 (02:43→22:31)
[2021-06-22 03:10] VITALS: BP 109/60
[2021-06-22 05:55] LABS: BASO # 0.1 x10^3/uL (0.0-0.2); BASO % 0 % (0-3); EOS # 0.5 x10^3/uL (0.0-0.7); EOS % 3 % (0-3); HEMATOCRIT 38.7 % (39.0-53.0); HEMOGLOBIN 12.5 g/dL (13.0-17.5); LYMPH # 3.1 x10^3/uL (1.0-4.8); LYMPH % 23 % (24-48); MEAN CORPUSCULAR HEMOGLOBIN 26 pg (25-35); MEAN CORPUSCULAR HGB CONC 32 g/dL (31-37); MEAN CORPUSCULAR VOLUME 81 fL (79-100); MONO # 1.1 x10^3/uL (0.0-1.1); MONO % 8 % (0-9); NEUT # 9.1 x10^3/uL (1.8-7.7); NEUT % 66 % (31-73); PLATELET COUNT 375 x10^3/uL (140-400); RED BLOOD COUNT 4.78 x10^6/uL (4.30-5.70); RED CELL DISTRIBUTION WIDTH 14.5 % (11.5-14.5); WHITE BLOOD COUNT 13.9 x10^3/uL (4.0-11.0)
[2021-06-22 06:24] LABS: CREATININE 0.8 mg/dL (0.7-1.3); GFR 97.3; POTASSIUM 4.1 mmol/L (3.5-5.1)
[2021-06-22 07:30] VITALS: BP 100/61
[2021-06-22] MEDS: LISINOPRIL 10 MG TABLET PO SCH (09:00)
[2021-06-22] MEDS: METOPROLOL SUCC 24HR ER 50 MG TAB.ER.24H. PO SCH (09:00)
--- NOTE | 2021-06-22 09:04 | RAD ---
EXAM: AP View of the chest DATE: 06/22/2021 8:48 AM INDICATION: Reason: PTX / Spl. Instructions: / History: COMPARISON: 06/21/2019 06/06/1621 FINDINGS: Pigtail catheter projects over the right lateral chest wall, stable in position. Trace right pneumoth orax. Primary mediastinal silhouette is stable. Patchy airspace opacities left midlung and lower lung likel y consolidative process No pleural effusion or pneumothorax. IMPRESSION: 1. Trace right pneumothorax is stable with stable position of right pigtail catheter. 2. 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 Electronically signed by: Lucas Curry MD (06/22/2021 9:02 AM) [id number]
--- NOTE | 2021-06-22 09:24 | PDOC ---
PROGRESS NOTES Date of Service: DATE: 06/22/21 TIME: 09:22 Subjective Subjective feels better ,pleurovac Objective Objective Vital Signs Date Time Temp Pulse Resp B/P (MAP) Pulse Ox O2 Delivery O2 Flow Rate FiO2 06/22/21 07:30 98.2 63 18 100/61 (74) 95 Nasal Cannula 3.0 98.2 Intake and Output 06/22/21 07:00 Output Total 500 ml Balance -500 ml Output Urine Total 500 ml Physical Exam Abdomen: Soft Heart: Regular rate, Normal S1, Normal S2 Extremities: No clubbing General: Alert HEENT: Atraumatic Lungs: Clear to auscultation MUSCULOSKELETAL: No deformity Neck: No JVD Neuro: Normal speech Psych/Mental Status: Mental status NL Skin: No breakdown COMMENT rt chest pleuravac Assessment Assessment IMPRESSION: 1. Qtcxy-cy-spkfggy respiratory failure, multifactorial. 2. Spontaneous pneumothorax in a patient with a history of COVID with severe emphysema and previous scans revealing pneumatoceles. 3. COVID-19 viral pneumonia, hospitalized for a prolonged period of time, . 4. History of right-sided cavitary lesion treated for lung abscess, with Augmentin for approximately 2-[address] chest revealing resolution. 5. Type 2 diabetes. 6. Mild narrowing of the upper trachea from previous tracheotomy. 7. 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 8. T12 mass, status post biopsy. PLAN:neuro surgery consult Mild leukocytosis. cxr noted. pain control better 1. Continue chest tube placement. Repeat chest x-ray. 2. Follow pathology report on T12 mass biopsy. 3. Continue oxygen supplementation. 4. Monitor blood sugars. 5. Continue home medications. Increase Percocet to 7.5/325 Q4H prn. Comment Review of Relevant I have reviewed the following items del (where applicable) has been applied. Labs Laboratory Tests Test 06/21/21 11:06 06/21/21 17:09 06/21/21 20:45 06/22/21 05:20 Glucose (Fingerstick) 124 mg/dL (70-99) 126 mg/dL (70-99) 151 mg/dL (70-99) White Blood Count 13.9 x10^3/uL (4.0-11.0) Red Blood Count 4.78 x10^6/uL (4.30-5.70) Hemoglobin 12.5 g/dL (13.0-17.5) Hematocrit 38.7 % (39.0-53.0) Mean Corpuscular Volume 81 fL (79-100) Mean Corpuscular Hemoglobin 26 pg (25-35) Mean Corpuscular Hemoglobin Concent 32 g/dL (31-37) Red Cell Distribution Width 14.5 % (11.5-14.5) Platelet Count 375 x10^3/uL (140-400) Neutrophils (%) (Auto) 66 % (31-73) Lymphocytes (%) (Auto) 23 % (24-48) Monocytes (%) (Auto) 8 % (0-9) Eosinophils (%) (Auto) 3 % (0-3) Basophils (%) (Auto) 0 % (0-3) Neutrophils # (Auto) 9.1 x10^3/uL (1.8-7.7) Lymphocytes # (Auto) 3.1 x10^3/uL (1.0-4.8) Monocytes # (Auto) 1.1 x10^3/uL (0.0-1.1) Eosinophils # (Auto) 0.5 x10^3/uL (0.0-0.7) Basophils # (Auto) 0.1 x10^3/uL (0.0-0.2) Sodium Level 138 mmol/L (136-145) Potassium Level 4.1 mmol/L (3.5-5.1) Chloride Level 100 mmol/L (98-107) Carbon Dioxide Level 29 mmol/L (21-32) Anion Gap 9 (6-14) Blood Urea Nitrogen 24 mg/dL (8-26) Creatinine 0.8 mg/dL (0.7-1.3) Estimated GFR (Cockcroft-Gault) 97.3 Glucose Level 96 mg/dL (70-99) Calcium Level 9.0 mg/dL (8.5-10.1) Test 06/22/21 07:41 Glucose (Fingerstick) 90 mg/dL (70-99) Microbiology 06/19/21 AFB Specimen Processing Tissue - Final, Resulted 06/19/21 Acid Fast Bacilli Culture, Resulted Pending 06/19/21 Gram Stain - Final, Resulted 06/19/21 Fungal Culture, Resulted Pending 06/19/21 Fungal Culture Result 1, Resulted Pending Vitals/I & O Vital Sign - Last 24 Hours 06/21/21 06/21/21 06/21/21 06/21/21 10:06 10:36 11:34 14:39 Temp 98.2 98.2 Pulse 82 Resp 18 B/P (MAP) 114/56 (75) Pulse Ox 95 96 96 O2 Delivery Nasal Cannula Nasal Cannula Nasal Cannula Nasal Cannula O2 Flow Rate 3.0 3.0 3.0 3.0 06/21/21 06/21/21 06/21/21 06/21/21 15:09 15:18 18:21 18:52 Temp 97.9 97.9 Pulse 84 Resp 22 B/P (MAP) 106/67 (80) Pulse Ox 96 97 97 97 O2 Delivery Nasal Cannula Nasal Cannula Nasal Cannula Nasal Cannula O2 Flow Rate 3.0 3.0 3.0 3.0 06/21/21 06/21/21 06/21/21 06/21/21 19:15 20:30 22:32 23:08 Temp 97.9 97.9 Pulse 103 Resp 22 16 16 B/P (MAP) 115/74 (88) Pulse Ox 96 96 96 O2 Delivery Nasal Cannula Nasal Cannula Nasal Cannula Nasal Cannula O2 Flow Rate 3.0 3.0 3.0 3.0 06/21/21 06/22/21 06/22/21 06/22/21 23:11 02:43 03:10 04:42 Temp 98.4 98.3 98.4 98.3 Pulse 62 63 Resp 18 16 18 16 B/P (MAP) 118/62 (80) 109/60 (76) Pulse Ox 98 98 96 96 O2 Delivery Nasal Cannula Nasal Cannula Nasal Cannula Nasal Cannula O2 Flow Rate 3.0 3.0 3.0 3.0 06/22/21 06/22/21 06/22/21 06:46 07:16 07:30 Temp 98.2 98.2 Pulse 63 Resp 16 18 B/P (MAP) 100/61 (74) Pulse Ox 96 95 O2 Delivery Nasal Cannula Nasal Cannula Nasal Cannula O2 Flow Rate 3.0 3.0 3.0 Intake and Output 06/21/21 06/21/21 06/22/21 15:00 23:00 07:00 Output Total 200 ml 300 ml Balance -200 ml -300 ml Justifications for Admission Other Justification KODURI,VINAYA K MD Jun 22, 2021 09:24
--- NOTE | 2021-06-22 09:44 | NUR ---
SW following. Discussed with RN, pt from home, 3L (uses oxygen at home), ada diet. Pt still has chest tube in place - not ready for discharge. Pt will discharge home when medically stable. SW will continue to follow.
[2021-06-22] MEDS: LINAGLIPTIN 5 MG TABLET PO SCH (09:46)
[2021-06-22] MEDS: ASPIRIN ENTERIC COATED 81 MG TABLET.DR. PO SCH (09:46)
[2021-06-22] MEDS: SIMVASTATIN 20 MG TABLET PO SCH (09:47)
[2021-06-22] MEDS: LEVOTHYROXINE 112 MCG TABLET PO SCH (09:47)
--- NOTE | 2021-06-22 10:16 | PDOC ---
PULMONARY PROGRESS NOTES DATE: 06/22/21 TIME: 10:16 Subjective Short of air, no chest pain Vitals Vital Signs Date Time Temp Pulse Resp B/P (MAP) Pulse Ox O2 Delivery O2 Flow Rate FiO2 06/22/21 07:30 98.2 63 18 100/61 (74) 95 Nasal Cannula 3.0 98.2 ROS: No Nausea, No Chest Pain, No Abdominal Pain, No Increase Cough General: Alert Cardiovascular: S1, S2 Abdomen: Soft, Non-tender Neuro Exam: Alert Extremities: No Edema Skin: Warm Labs Laboratory Tests Test 06/20/21 10:48 06/20/21 17:20 06/20/21 20:43 06/21/21 06:10 Glucose (Fingerstick) 217 mg/dL (70-99) 94 mg/dL (70-99) 146 mg/dL (70-99) White Blood Count 13.2 x10^3/uL (4.0-11.0) Red Blood Count 4.97 x10^6/uL (4.30-5.70) Hemoglobin 12.8 g/dL (13.0-17.5) Hematocrit 40.0 % (39.0-53.0) Mean Corpuscular Volume 80 fL (79-100) Mean Corpuscular Hemoglobin 26 pg (25-35) Mean Corpuscular Hemoglobin Concent 32 g/dL (31-37) Red Cell Distribution Width 14.9 % (11.5-14.5) Platelet Count 391 x10^3/uL (140-400) Neutrophils (%) (Auto) 60 % (31-73) Lymphocytes (%) (Auto) 30 % (24-48) Monocytes (%) (Auto) 7 % (0-9) Eosinophils (%) (Auto) 3 % (0-3) Basophils (%) (Auto) 0 % (0-3) Neutrophils # (Auto) 7.9 x10^3/uL (1.8-7.7) Lymphocytes # (Auto) 3.9 x10^3/uL (1.0-4.8) Monocytes # (Auto) 0.9 x10^3/uL (0.0-1.1) Eosinophils # (Auto) 0.4 x10^3/uL (0.0-0.7) Basophils # (Auto) 0.0 x10^3/uL (0.0-0.2) Sodium Level 139 mmol/L (136-145) Potassium Level 4.5 mmol/L (3.5-5.1) Chloride Level 99 mmol/L (98-107) Carbon Dioxide Level 31 mmol/L (21-32) Anion Gap 9 (6-14) Blood Urea Nitrogen 23 mg/dL (8-26) Creatinine 0.8 mg/dL (0.7-1.3) Estimated GFR (Cockcroft-Gault) 97.3 Glucose Level 106 mg/dL (70-99) Calcium Level 9.0 mg/dL (8.5-10.1) Prostate Specific Antigen 2.54 ng/mL (0.00-4.00) Test 06/21/21 07:56 06/21/21 11:06 06/21/21 17:09 06/21/21 20:45 Glucose (Fingerstick) 117 mg/dL (70-99) 124 mg/dL (70-99) 126 mg/dL (70-99) 151 mg/dL (70-99) Test 06/22/21 05:20 06/22/21 07:41 White Blood Count 13.9 x10^3/uL (4.0-11.0) Red Blood Count 4.78 x10^6/uL (4.30-5.70) Hemoglobin 12.5 g/dL (13.0-17.5) Hematocrit 38.7 % (39.0-53.0) Mean Corpuscular Volume 81 fL (79-100) Mean Corpuscular Hemoglobin 26 pg (25-35) Mean Corpuscular Hemoglobin Concent 32 g/dL (31-37) Red Cell Distribution Width 14.5 % (11.5-14.5) Platelet Count 375 x10^3/uL (140-400) Neutrophils (%) (Auto) 66 % (31-73) Lymphocytes (%) (Auto) 23 % (24-48) Monocytes (%) (Auto) 8 % (0-9) Eosinophils (%) (Auto) 3 % (0-3) Basophils (%) (Auto) 0 % (0-3) Neutrophils # (Auto) 9.1 x10^3/uL (1.8-7.7) Lymphocytes # (Auto) 3.1 x10^3/uL (1.0-4.8) Monocytes # (Auto) 1.1 x10^3/uL (0.0-1.1) Eosinophils # (Auto) 0.5 x10^3/uL (0.0-0.7) Basophils # (Auto) 0.1 x10^3/uL (0.0-0.2) Sodium Level 138 mmol/L (136-145) Potassium Level 4.1 mmol/L (3.5-5.1) Chloride Level 100 mmol/L (98-107) Carbon Dioxide Level 29 mmol/L (21-32) Anion Gap 9 (6-14) Blood Urea Nitrogen 24 mg/dL (8-26) Creatinine 0.8 mg/dL (0.7-1.3) Estimated GFR (Cockcroft-Gault) 97.3 Glucose Level 96 mg/dL (70-99) Calcium Level 9.0 mg/dL (8.5-10.1) Glucose (Fingerstick) 90 mg/dL (70-99) Laboratory Tests Test 06/21/21 11:06 06/21/21 17:09 06/21/21 20:45 06/22/21 05:20 Glucose (Fingerstick) 124 mg/dL (70-99) 126 mg/dL (70-99) 151 mg/dL (70-99) White Blood Count 13.9 x10^3/uL (4.0-11.0) Red Blood Count 4.78 x10^6/uL (4.30-5.70) Hemoglobin 12.5 g/dL (13.0-17.5) Hematocrit 38.7 % (39.0-53.0) Mean Corpuscular Volume 81 fL (79-100) Mean Corpuscular Hemoglobin 26 pg (25-35) Mean Corpuscular Hemoglobin Concent 32 g/dL (31-37) Red Cell Distribution Width 14.5 % (11.5-14.5) Platelet Count 375 x10^3/uL (140-400) Neutrophils (%) (Auto) 66 % (31-73) Lymphocytes (%) (Auto) 23 % (24-48) Monocytes (%) (Auto) 8 % (0-9) Eosinophils (%) (Auto) 3 % (0-3) Basophils (%) (Auto) 0 % (0-3) Neutrophils # (Auto) 9.1 x10^3/uL (1.8-7.7) Lymphocytes # (Auto) 3.1 x10^3/uL (1.0-4.8) Monocytes # (Auto) 1.1 x10^3/uL (0.0-1.1) Eosinophils # (Auto) 0.5 x10^3/uL (0.0-0.7) Basophils # (Auto) 0.1 x10^3/uL (0.0-0.2) Sodium Level 138 mmol/L (136-145) Potassium Level 4.1 mmol/L (3.5-5.1) Chloride Level 100 mmol/L (98-107) Carbon Dioxide Level 29 mmol/L (21-32) Anion Gap 9 (6-14) Blood Urea Nitrogen 24 mg/dL (8-26) Creatinine 0.8 mg/dL (0.7-1.3) Estimated GFR (Cockcroft-Gault) 97.3 Glucose Level 96 mg/dL (70-99) Calcium Level 9.0 mg/dL (8.5-10.1) Test 06/22/21 07:41 Glucose (Fingerstick) 90 mg/dL (70-99) Medications Active Scripts Medications Dose Route/Sig Max Daily Dose Days Date Category Hydrocodone-Apap 5-325 (Hydrocodone Bit/Acetaminophen) 1 Tab Tablet 1 Tab PO PRN Q6HRS PRN 06/19/21 Reported Tizanidine Hcl 4 Mg Tablet 2 Mg PO TID PRN 06/19/21 Reported Aspir 81 (Aspirin) 81 Mg Tablet.dr 81 Mg PO DAILY 11/06/13 Reported Lisinopril 10 Mg Tablet 10 Mg PO DAILY 11/06/13 Reported Onglyza (Saxagliptin Hcl) 5 Mg Tablet 5 Mg PO DAILY 11/06/13 Reported Metformin Hcl 500 Mg Tablet 500 Mg PO DAILY 11/06/13 Reported Levothyroxine Sodium 112 Mcg Tablet 112 Mcg PO DAILYAC 11/06/13 Reported Toprol Xl (Metoprolol Succinate) 50 Mg Tab.er.24h 50 Mg PO DAILY 11/06/13 Reported Simvastatin 20 Mg Tablet 20 Mg PO DAILY 11/06/13 Reported Impression . IMPRESSION: 1. Dvykh-xk-fbakfqu respiratory failure, multifactorial. 2. Spontaneous pneumothorax in a patient with a history of COVID with severe emphysema and previous scans revealing pneumatoceles. 3. COVID-19 viral pneumonia, hospitalized for a prolonged period of time, he was at [facility], for quite some time. He was discharged home back in 06/2020. 4. History of right-sided cavitary lesion treated for lung abscess, with Augmentin for approximately 2-[address] chest revealing resolution. 5. Type 2 diabetes. 6. Mild narrowing of the upper trachea from previous tracheotomy. 7. 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 8. T12 mass, status post biopsy. Plan . Updated 06/22 Chest x-ray reviewed no significant change Continue air leak on chest tube Discussed with at the bedside Continue current wall suction Updated 06/21 Special stains on biopsy pending, compatible with a malignant process, patient visited with medical oncologist chest x-ray reviewed, small pneumo no change from yesterday Chest tube with air leak continues Continue wall suction HANNAH HERNANDEZ MD Jun 22, 2021 10:16
[2021-06-22 10:54] VITALS: BP 118/70
[2021-06-22] MEDS ORDERED: GADOTERATE 7.5 MMOL/15ML VIAL. IVP ONE (14:45)
[2021-06-22 14:48] VITALS: BP 128/69
--- NOTE | 2021-06-22 16:37 | RAD ---
EXAM: MRI thoracic spine with and without contrast. HISTORY: T12 mass. TECHNIQUE: MRI of the thoracic spine was performed before and after the intravenous administration of 14 mL Clariscan. COMPARISON: 06/08/2021, 04/05/2021. FINDINGS: A lytic lesion along the right aspect of the T12 vertebral body spans 3.9 x 3.0 cm and exte nds into the right paraspinous musculature laterally. It extends into the right pedicle and bulges th e posterior margin of the vertebral body on the right, resulting in moderate right lateral recess silvio rowing. There is no direct expansion into the central canal. A mild compression deformity along the r ight aspect of the vertebral body is unchanged. There is mild edema within the right paraspinous soft tissues. Another soft tissue mass measuring 2.1 x 1.5 cm is noted just anterior to the right 12th ri b. A thick-walled 5.3 x 3.5 cm cavitary lesion within the right upper lobe extends to the right paraspin ous soft tissues at T5 but does not invade the vertebral bodies or neural foramen. There are no enhancing parenchymal lesions or clear intradural metastatic disease. There is no abnorm al cord signal. There is a benign hemangioma at T3. No additional metastatic lesions are seen. Thoracic alignment is maintained. Disc heights are maintained. There is no significant neural foraminal stenosis. IMPRESSION: 1. Lytic lesion with an associated soft tissue mass along the right aspect of the T12 vertebral body most likely reflecting metastatic disease. There is mild expansion of the right posterior aspect of t he vertebral body with mild on the right lateral recess. 2. 5 cm right upper lobe thick-walled cavitary lesion concerning for malignancy. Another pleural meta stasis is suspected in the right costophrenic angle. Electronically signed by: Kaela Lowry MD (06/22/2021 4:34 PM) [id number]
[2021-06-22 19:15] VITALS: BP 109/65
[2021-06-22 22:50] VITALS: BP 99/56
[2021-06-23] MEDS: oxyCODONE/APAP 7.5/325 1 TAB TABLET PO PRN ×6 (02:39→23:53)
[2021-06-23 02:47] VITALS: BP 108/60
[2021-06-23 07:00] VITALS: BP 91/58
[2021-06-23 07:23] LABS: BASO % 0 % (0-3); EOS # 0.4 x10^3/uL (0.0-0.7); EOS % 3 % (0-3); HEMATOCRIT 37.1 % (39.0-53.0); HEMOGLOBIN 11.9 g/dL (13.0-17.5); LYMPH # 3.2 x10^3/uL (1.0-4.8); LYMPH % 25 % (24-48); MEAN CORPUSCULAR HEMOGLOBIN 26 pg (25-35); MEAN CORPUSCULAR HGB CONC 32 g/dL (31-37); MEAN CORPUSCULAR VOLUME 81 fL (79-100); MONO % 8 % (0-9); NEUT # 8.1 x10^3/uL (1.8-7.7); NEUT % 63 % (31-73); PLATELET COUNT 392 x10^3/uL (140-400); RED BLOOD COUNT 4.59 x10^6/uL (4.30-5.70); RED CELL DISTRIBUTION WIDTH 14.4 % (11.5-14.5); WHITE BLOOD COUNT 12.7 x10^3/uL (4.0-11.0)
--- NOTE | 2021-06-23 07:27 | PDOC ---
PULMONARY PROGRESS NOTES DATE: 06/23/21 TIME: 07:[address] + airleak on 02 3 lpm Vitals Vital Signs Date Time Temp Pulse Resp B/P (MAP) Pulse Ox O2 Delivery O2 Flow Rate FiO2 06/23/21 06:37 Nasal Cannula 3.0 06/23/21 02:47 98.0 63 21 108/60 (76) 98 98.0 ROS: No Nausea, No Chest Pain, No Abdominal Pain, No Increase Cough General: Alert HEENT: Other (nc at perrl ) Cardiovascular: S1, S2 Abdomen: Soft, Non-tender Neuro Exam: Alert Extremities: No Edema Skin: Warm Labs Laboratory Tests Test 06/21/21 07:56 06/21/21 11:06 06/21/21 17:09 06/21/21 20:45 Glucose (Fingerstick) 117 mg/dL (70-99) 124 mg/dL (70-99) 126 mg/dL (70-99) 151 mg/dL (70-99) Test 06/22/21 05:20 06/22/21 07:41 06/22/21 11:52 06/22/21 17:13 White Blood Count 13.9 x10^3/uL (4.0-11.0) Red Blood Count 4.78 x10^6/uL (4.30-5.70) Hemoglobin 12.5 g/dL (13.0-17.5) Hematocrit 38.7 % (39.0-53.0) Mean Corpuscular Volume 81 fL (79-100) Mean Corpuscular Hemoglobin 26 pg (25-35) Mean Corpuscular Hemoglobin Concent 32 g/dL (31-37) Red Cell Distribution Width 14.5 % (11.5-14.5) Platelet Count 375 x10^3/uL (140-400) Neutrophils (%) (Auto) 66 % (31-73) Lymphocytes (%) (Auto) 23 % (24-48) Monocytes (%) (Auto) 8 % (0-9) Eosinophils (%) (Auto) 3 % (0-3) Basophils (%) (Auto) 0 % (0-3) Neutrophils # (Auto) 9.1 x10^3/uL (1.8-7.7) Lymphocytes # (Auto) 3.1 x10^3/uL (1.0-4.8) Monocytes # (Auto) 1.1 x10^3/uL (0.0-1.1) Eosinophils # (Auto) 0.5 x10^3/uL (0.0-0.7) Basophils # (Auto) 0.1 x10^3/uL (0.0-0.2) Sodium Level 138 mmol/L (136-145) Potassium Level 4.1 mmol/L (3.5-5.1) Chloride Level 100 mmol/L (98-107) Carbon Dioxide Level 29 mmol/L (21-32) Anion Gap 9 (6-14) Blood Urea Nitrogen 24 mg/dL (8-26) Creatinine 0.8 mg/dL (0.7-1.3) Estimated GFR (Cockcroft-Gault) 97.3 Glucose Level 96 mg/dL (70-99) Calcium Level 9.0 mg/dL (8.5-10.1) Glucose (Fingerstick) 90 mg/dL (70-99) 125 mg/dL (70-99) 138 mg/dL (70-99) Test 06/22/21 20:31 Glucose (Fingerstick) 190 mg/dL (70-99) Laboratory Tests Test 06/22/21 07:41 06/22/21 11:52 06/22/21 17:13 06/22/21 20:31 Glucose (Fingerstick) 90 mg/dL (70-99) 125 mg/dL (70-99) 138 mg/dL (70-99) 190 mg/dL (70-99) Medications Active Scripts Medications Dose Route/Sig Max Daily Dose Days Date Category Hydrocodone-Apap 5-325 (Hydrocodone Bit/Acetaminophen) 1 Tab Tablet 1 Tab PO PRN Q6HRS PRN 06/19/21 Reported Tizanidine Hcl 4 Mg Tablet 2 Mg PO TID PRN 06/19/21 Reported Aspir 81 (Aspirin) 81 Mg Tablet.dr 81 Mg PO DAILY 11/06/13 Reported Lisinopril 10 Mg Tablet 10 Mg PO DAILY 11/06/13 Reported Onglyza (Saxagliptin Hcl) 5 Mg Tablet 5 Mg PO DAILY 11/06/13 Reported Metformin Hcl 500 Mg Tablet 500 Mg PO DAILY 11/06/13 Reported Levothyroxine Sodium 112 Mcg Tablet 112 Mcg PO DAILYAC 11/06/13 Reported Toprol Xl (Metoprolol Succinate) 50 Mg Tab.er.24h 50 Mg PO DAILY 11/06/13 Reported Simvastatin 20 Mg Tablet 20 Mg PO DAILY 11/06/13 Reported Comments cxr 06/22, reviewed 1. Trace right pneumothorax is stable with stable position of right pigtail catheter. 2. Changes of chronic interstitial disease likely from fibrosis, grossly stable including the more patchy appearance left lower lung. Impression . IMPRESSION: 1. Crnnw-hj-qjgbexx respiratory failure, multifactorial. 2. Spontaneous pneumothorax in a patient with a history of COVID with severe emphysema and previous scans revealing pneumatoceles. 3. COVID-19 viral pneumonia, hospitalized for a prolonged period of time, he was at [facility], for quite some time. He was discharged home back in 06/2020. 4. History of right-sided cavitary lesion treated for lung abscess, with Augmentin for approximately 2-[address] chest revealing resolution. 5. Type 2 diabetes. 6. Mild narrowing of the upper trachea from previous tracheotomy. 7. 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 8. T12 mass, status post biopsy. Plan . Updated 06/23 02 titration Chest x-ray reviewed b lat infilt trace apical ptx + air leak on chest tube cont ct suction -20 add lovenox for dvt prophylaxis discussed w pt rn Updated 06/22 Chest x-ray reviewed no significant change Continue air leak on chest tube Discussed with at the bedside Continue current wall suction Updated 06/21 Special stains on biopsy pending, compatible with a malignant process, patient visited with medical oncologist chest x-ray reviewed, small pneumo no change from yesterday Chest tube with air leak continues Continue wall suction NADJA BRENNAN MD Jun 23, 2021 07:27
[2021-06-23 07:28] LABS: CALCIUM 8.9 mg/dL (8.5-10.1); CREATININE 0.9 mg/dL (0.7-1.3); POTASSIUM 5.3 mmol/L (3.5-5.1)
[2021-06-23] MEDS: LINAGLIPTIN 5 MG TABLET PO SCH (08:54)
[2021-06-23] MEDS: SIMVASTATIN 20 MG TABLET PO SCH (08:54)
[2021-06-23] MEDS: LEVOTHYROXINE 112 MCG TABLET PO SCH (08:54)
[2021-06-23] MEDS: ASPIRIN ENTERIC COATED 81 MG TABLET.DR. PO SCH (08:54)
[2021-06-23] MEDS: LISINOPRIL 10 MG TABLET PO SCH (08:57)
[2021-06-23] MEDS: METOPROLOL SUCC 24HR ER 50 MG TAB.ER.24H. PO SCH (08:57)
[2021-06-23] MEDS ORDERED: ENOXAPARIN 40 MG/0.4 ML SYRINGE. SQ SCH (09:00)
--- NOTE | 2021-06-23 10:22 | PDOC ---
IM PROGRESS NOTES- Subjective Subjective Has some chest pain and congestion. Objective Vitals/I&O Vital Signs Date Time Temp Pulse Resp B/P (MAP) Pulse Ox O2 Delivery O2 Flow Rate FiO2 06/23/21 08:57 58 91/58 06/23/21 08:55 Nasal Cannula 3.0 06/23/21 07:00 97.5 21 97 97.5 I & O 06/22/21 06/22/21 06/23/21 15:00 23:00 07:00 Intake Total 240 ml Output Total 150 ml 500 ml Balance 90 ml -500 ml Physical Exam Physical Exam General Appearance - alert and in no distress Chest - decreased breath sounds at bases Heart - S1 and S2 normal Abdomen - soft, non tender Neurological - alert and oriented Musculoskeletal - generalized weakness Extremities - no edema Labs Laboratory Tests Test 06/22/21 11:52 06/22/21 17:13 06/22/21 20:31 06/23/21 06:25 Glucose (Fingerstick) 125 mg/dL (70-99) H 138 mg/dL (70-99) H 190 mg/dL (70-99) H White Blood Count 12.7 x10^3/uL (4.0-11.0) H Red Blood Count 4.59 x10^6/uL (4.30-5.70) Hemoglobin 11.9 g/dL (13.0-17.5) L Hematocrit 37.1 % (39.0-53.0) L Mean Corpuscular Volume 81 fL (79-100) Mean Corpuscular Hemoglobin 26 pg (25-35) Mean Corpuscular Hemoglobin Concent 32 g/dL (31-37) Red Cell Distribution Width 14.4 % (11.5-14.5) Platelet Count 392 x10^3/uL (140-400) Neutrophils (%) (Auto) 63 % (31-73) Lymphocytes (%) (Auto) 25 % (24-48) Monocytes (%) (Auto) 8 % (0-9) Eosinophils (%) (Auto) 3 % (0-3) Basophils (%) (Auto) 0 % (0-3) Neutrophils # (Auto) 8.1 x10^3/uL (1.8-7.7) H Lymphocytes # (Auto) 3.2 x10^3/uL (1.0-4.8) Monocytes # (Auto) 1.0 x10^3/uL (0.0-1.1) Eosinophils # (Auto) 0.4 x10^3/uL (0.0-0.7) Basophils # (Auto) 0.0 x10^3/uL (0.0-0.2) Sodium Level 140 mmol/L (136-145) Potassium Level 5.3 mmol/L (3.5-5.1) H Chloride Level 100 mmol/L (98-107) Carbon Dioxide Level 33 mmol/L (21-32) H Anion Gap 7 (6-14) Blood Urea Nitrogen 21 mg/dL (8-26) Creatinine 0.9 mg/dL (0.7-1.3) Estimated GFR (Cockcroft-Gault) 85.0 Glucose Level 103 mg/dL (70-99) H Calcium Level 8.9 mg/dL (8.5-10.1) Test 06/23/21 07:31 Glucose (Fingerstick) 114 mg/dL (70-99) H Laboratory Tests 06/23/21 06:25 Laboratory Tests 06/23/21 06:25 Meds Current Medications Medications (Trade) Dose Ordered Sig/Yoandy Route PRN Reason Start Time Stop Time Status Last Admin Dose Admin Gadoterate Meglumine (Clariscan) 14 ml 1X ONCE IVP 06/22/21 14:45 06/22/21 14:51 DC 06/22/21 15:50 Enoxaparin Sodium (Lovenox 40mg Syringe) 40 mg Q24H SQ 06/23/21 09:00 06/23/21 08:55 Assessment Assessment IMPRESSION: 1. Pcwxl-bh-mfgxrqj respiratory failure, multifactorial. 2. Spontaneous pneumothorax in a patient with a history of COVID with severe emphysema and previous scans revealing pneumatoceles. 3. COVID-19 viral pneumonia, hospitalized for a prolonged period of time, . 4. History of right-sided cavitary lesion treated for lung abscess, with Augmentin for approximately 2-[address] chest revealing resolution. 5. Type 2 diabetes. 6. Mild narrowing of the upper trachea from previous tracheotomy. 7. 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 8. T12 mass, status post biopsy. PLAN:neuro surgery consult Mild leukocytosis. pain control better 1. Continue chest tube placement. Chest x-ray on June 22 1. Trace right pneumothorax is stable with stable position of right pigtail catheter. 2. Changes of chronic interstitial disease likely from fibrosis, grossly stable including the more patchy appearance left lower lung. 2. Follow pathology report on T12 mass biopsy. 3. Continue oxygen supplementation. 4. Monitor blood sugars. 5. Continue home medications. Increase Percocet to 7.5/325 Q4H prn. Hyperkalemia. Potassium is 5.3. He is not on any potassium supplements. He is on lisinopril. Recheck labs in a.m. Decrease lisinopril to 5 mg daily. Patient's blood pressure is also low. T12 mass MRI of thoracic spine on June 22, 2021 1. Lytic lesion with an associated soft tissue mass along the right aspect of the T12 vertebral body most likely reflecting metastatic disease. There is mild expansion of the right posterior aspect of the vertebral body with mild on the right lateral recess. 2. 5 cm right upper lobe thick-walled cavitary lesion concerning for malignancy. Another pleural metastasis is suspected in the right costophrenic angle. Continues to have mild leukocytosis. Plan Plan For more details regarding further plans, please refer to the orders. Justifications for Admission Other Justification FAZAL RENAE MD Jun 23, 2021 10:22
[2021-06-23 11:00] VITALS: BP 114/66
--- NOTE | 2021-06-23 12:17 | PDOC ---
Provider Note Date of Service: DATE: 06/23/21 TIME: 12:14 Provider Note patient seen and examined consulted for T12 lesion c/o right sided thoracic pain with radiation to right ribs Neuro intact Thoracic MRI with lytic lesion with an associated soft tissue mass along the right aspect of the T12 vertebral body most likely reflecting metastatic disease. I do not see compromise of the canal or spinal cord. The tumor involves the right side of T12 vertebral body. I do not feel surgery is indicated Await pathology Justifications for Admission Other Justification EDUARDO WILSON MD Jun 23, 2021 12:17
[2021-06-23 15:00] VITALS: BP 112/66
--- NOTE | 2021-06-23 16:18 | RAD ---
EXAM: CHEST ONE VIEW. HISTORY: Pneumothorax, chest tube. COMPARISON: 06/22/2021. FINDINGS: A frontal view of the chest is obtained. A small bore right chest tube is slightly more inf eriorly positioned than previously. A small right apical pneumothorax is unchanged. Multiple blebs in the right apex are again noted. The re are diffuse interstitial infiltrates. Lung volumes are small. There is no clear pleural effusion. The heart is not enlarged. IMPRESSION: 1. Stable small right pneumothorax with a chest tube in place. 2. Multiple blebs in the right apex. Diffuse interstitial lung disease. Electronically signed by: Kaela Lowry MD (06/23/2021 4:15 PM) [id number]
[2021-06-23 19:00] VITALS: BP 124/66
[2021-06-23 23:00] VITALS: BP 127/70
[2021-06-24 03:00] VITALS: BP 113/68
[2021-06-24] MEDS: oxyCODONE/APAP 7.5/325 1 TAB TABLET PO PRN ×5 (03:56→20:34)
[2021-06-24 05:50] LABS: BASO % 0 % (0-3); EOS # 0.6 x10^3/uL (0.0-0.7); EOS % 4 % (0-3); HEMATOCRIT 38.3 % (39.0-53.0); HEMOGLOBIN 12.1 g/dL (13.0-17.5); LYMPH # 3.7 x10^3/uL (1.0-4.8); LYMPH % 27 % (24-48); MEAN CORPUSCULAR HEMOGLOBIN 25 pg (25-35); MEAN CORPUSCULAR HGB CONC 32 g/dL (31-37); MEAN CORPUSCULAR VOLUME 80 fL (79-100); MONO # 1.2 x10^3/uL (0.0-1.1); MONO % 9 % (0-9); NEUT # 8.4 x10^3/uL (1.8-7.7); NEUT % 60 % (31-73); PLATELET COUNT 367 x10^3/uL (140-400); RED BLOOD COUNT 4.76 x10^6/uL (4.30-5.70); RED CELL DISTRIBUTION WIDTH 14.7 % (11.5-14.5); WHITE BLOOD COUNT 13.9 x10^3/uL (4.0-11.0)
[2021-06-24 05:51] LABS: ALBUMIN/GLOBULIN RATIO 0.6 (1.0-1.7); CREATININE 0.9 mg/dL (0.7-1.3); POTASSIUM 4.4 mmol/L (3.5-5.1); TOTAL BILIRUBIN 0.3 mg/dL (0.2-1.0)
--- NOTE | 2021-06-24 06:32 | PDOC ---
PULMONARY PROGRESS NOTES DATE: 06/24/21 TIME: 06:[address] + airleak on 02 3 lpm Vitals Vital Signs Date Time Temp Pulse Resp B/P (MAP) Pulse Ox O2 Delivery O2 Flow Rate FiO2 06/24/21 04:26 20 Nasal Cannula 2.0 06/24/21 03:00 98.1 61 113/68 (83) 97 98.1 ROS: No Nausea, No Chest Pain, No Abdominal Pain, No Increase Cough General: Alert HEENT: Other (nc at perrl ) Cardiovascular: S1, S2 Abdomen: Soft, Non-tender Neuro Exam: Alert Extremities: No Edema Skin: Warm Labs Laboratory Tests Test 06/22/21 07:41 06/22/21 11:52 06/22/21 17:13 06/22/21 20:31 Glucose (Fingerstick) 90 mg/dL (70-99) 125 mg/dL (70-99) 138 mg/dL (70-99) 190 mg/dL (70-99) Test 06/23/21 06:25 06/23/21 07:31 06/23/21 11:37 06/23/21 16:52 White Blood Count 12.7 x10^3/uL (4.0-11.0) Red Blood Count 4.59 x10^6/uL (4.30-5.70) Hemoglobin 11.9 g/dL (13.0-17.5) Hematocrit 37.1 % (39.0-53.0) Mean Corpuscular Volume 81 fL (79-100) Mean Corpuscular Hemoglobin 26 pg (25-35) Mean Corpuscular Hemoglobin Concent 32 g/dL (31-37) Red Cell Distribution Width 14.4 % (11.5-14.5) Platelet Count 392 x10^3/uL (140-400) Neutrophils (%) (Auto) 63 % (31-73) Lymphocytes (%) (Auto) 25 % (24-48) Monocytes (%) (Auto) 8 % (0-9) Eosinophils (%) (Auto) 3 % (0-3) Basophils (%) (Auto) 0 % (0-3) Neutrophils # (Auto) 8.1 x10^3/uL (1.8-7.7) Lymphocytes # (Auto) 3.2 x10^3/uL (1.0-4.8) Monocytes # (Auto) 1.0 x10^3/uL (0.0-1.1) Eosinophils # (Auto) 0.4 x10^3/uL (0.0-0.7) Basophils # (Auto) 0.0 x10^3/uL (0.0-0.2) Sodium Level 140 mmol/L (136-145) Potassium Level 5.3 mmol/L (3.5-5.1) Chloride Level 100 mmol/L (98-107) Carbon Dioxide Level 33 mmol/L (21-32) Anion Gap 7 (6-14) Blood Urea Nitrogen 21 mg/dL (8-26) Creatinine 0.9 mg/dL (0.7-1.3) Estimated GFR (Cockcroft-Gault) 85.0 Glucose Level 103 mg/dL (70-99) Calcium Level 8.9 mg/dL (8.5-10.1) Glucose (Fingerstick) 114 mg/dL (70-99) 139 mg/dL (70-99) 182 mg/dL (70-99) Test 06/23/21 20:30 06/24/21 05:00 Glucose (Fingerstick) 118 mg/dL (70-99) White Blood Count 13.9 x10^3/uL (4.0-11.0) Red Blood Count 4.76 x10^6/uL (4.30-5.70) Hemoglobin 12.1 g/dL (13.0-17.5) Hematocrit 38.3 % (39.0-53.0) Mean Corpuscular Volume 80 fL (79-100) Mean Corpuscular Hemoglobin 25 pg (25-35) Mean Corpuscular Hemoglobin Concent 32 g/dL (31-37) Red Cell Distribution Width 14.7 % (11.5-14.5) Platelet Count 367 x10^3/uL (140-400) Neutrophils (%) (Auto) 60 % (31-73) Lymphocytes (%) (Auto) 27 % (24-48) Monocytes (%) (Auto) 9 % (0-9) Eosinophils (%) (Auto) 4 % (0-3) Basophils (%) (Auto) 0 % (0-3) Neutrophils # (Auto) 8.4 x10^3/uL (1.8-7.7) Lymphocytes # (Auto) 3.7 x10^3/uL (1.0-4.8) Monocytes # (Auto) 1.2 x10^3/uL (0.0-1.1) Eosinophils # (Auto) 0.6 x10^3/uL (0.0-0.7) Basophils # (Auto) 0.0 x10^3/uL (0.0-0.2) Sodium Level 138 mmol/L (136-145) Potassium Level 4.4 mmol/L (3.5-5.1) Chloride Level 100 mmol/L (98-107) Carbon Dioxide Level 32 mmol/L (21-32) Anion Gap 6 (6-14) Blood Urea Nitrogen 20 mg/dL (8-26) Creatinine 0.9 mg/dL (0.7-1.3) Estimated GFR (Cockcroft-Gault) 85.0 BUN/Creatinine Ratio 22 (6-20) Glucose Level 113 mg/dL (70-99) Calcium Level 9.0 mg/dL (8.5-10.1) Total Bilirubin 0.3 mg/dL (0.2-1.0) Aspartate Amino Transf (AST/SGOT) 19 U/L (15-37) Alanine Aminotransferase (ALT/SGPT) 22 U/L (16-63) Alkaline Phosphatase 67 U/L (46-116) Total Protein 8.0 g/dL (6.4-8.2) Albumin 3.0 g/dL (3.4-5.0) Albumin/Globulin Ratio 0.6 (1.0-1.7) Laboratory Tests Test 06/23/21 07:31 06/23/21 11:37 06/23/21 16:52 06/23/21 20:30 Glucose (Fingerstick) 114 mg/dL (70-99) 139 mg/dL (70-99) 182 mg/dL (70-99) 118 mg/dL (70-99) Test 06/24/21 05:00 White Blood Count 13.9 x10^3/uL (4.0-11.0) Red Blood Count 4.76 x10^6/uL (4.30-5.70) Hemoglobin 12.1 g/dL (13.0-17.5) Hematocrit 38.3 % (39.0-53.0) Mean Corpuscular Volume 80 fL (79-100) Mean Corpuscular Hemoglobin 25 pg (25-35) Mean Corpuscular Hemoglobin Concent 32 g/dL (31-37) Red Cell Distribution Width 14.7 % (11.5-14.5) Platelet Count 367 x10^3/uL (140-400) Neutrophils (%) (Auto) 60 % (31-73) Lymphocytes (%) (Auto) 27 % (24-48) Monocytes (%) (Auto) 9 % (0-9) Eosinophils (%) (Auto) 4 % (0-3) Basophils (%) (Auto) 0 % (0-3) Neutrophils # (Auto) 8.4 x10^3/uL (1.8-7.7) Lymphocytes # (Auto) 3.7 x10^3/uL (1.0-4.8) Monocytes # (Auto) 1.2 x10^3/uL (0.0-1.1) Eosinophils # (Auto) 0.6 x10^3/uL (0.0-0.7) Basophils # (Auto) 0.0 x10^3/uL (0.0-0.2) Sodium Level 138 mmol/L (136-145) Potassium Level 4.4 mmol/L (3.5-5.1) Chloride Level 100 mmol/L (98-107) Carbon Dioxide Level 32 mmol/L (21-32) Anion Gap 6 (6-14) Blood Urea Nitrogen 20 mg/dL (8-26) Creatinine 0.9 mg/dL (0.7-1.3) Estimated GFR (Cockcroft-Gault) 85.0 BUN/Creatinine Ratio 22 (6-20) Glucose Level 113 mg/dL (70-99) Calcium Level 9.0 mg/dL (8.5-10.1) Total Bilirubin 0.3 mg/dL (0.2-1.0) Aspartate Amino Transf (AST/SGOT) 19 U/L (15-37) Alanine Aminotransferase (ALT/SGPT) 22 U/L (16-63) Alkaline Phosphatase 67 U/L (46-116) Total Protein 8.0 g/dL (6.4-8.2) Albumin 3.0 g/dL (3.4-5.0) Albumin/Globulin Ratio 0.6 (1.0-1.7) Medications Active Scripts Medications Dose Route/Sig Max Daily Dose Days Date Category Hydrocodone-Apap 5-325 (Hydrocodone Bit/Acetaminophen) 1 Tab Tablet 1 Tab PO PRN Q6HRS PRN 06/19/21 Reported Tizanidine Hcl 4 Mg Tablet 2 Mg PO TID PRN 06/19/21 Reported Aspir 81 (Aspirin) 81 Mg Tablet.dr 81 Mg PO DAILY 11/06/13 Reported Lisinopril 10 Mg Tablet 10 Mg PO DAILY 11/06/13 Reported Onglyza (Saxagliptin Hcl) 5 Mg Tablet 5 Mg PO DAILY 11/06/13 Reported Metformin Hcl 500 Mg Tablet 500 Mg PO DAILY 11/06/13 Reported Levothyroxine Sodium 112 Mcg Tablet 112 Mcg PO DAILYAC 11/06/13 Reported Toprol Xl (Metoprolol Succinate) 50 Mg Tab.er.24h 50 Mg PO DAILY 11/06/13 Reported Simvastatin 20 Mg Tablet 20 Mg PO DAILY 11/06/13 Reported Comments 06/23 cxr reviewed 1. Stable small right pneumothorax with a chest tube in place. 2. Multiple blebs in the right apex. Diffuse interstitial lung disease. cxr 06/22, reviewed 1. Trace right pneumothorax is stable with stable position of right pigtail catheter. 2. Changes of chronic interstitial disease likely from fibrosis, grossly stable including the more patchy appearance left lower lung. Impression . IMPRESSION: 1. Sayma-tr-ximauab respiratory failure, multifactorial. 2. Spontaneous pneumothorax in a patient with a history of COVID with severe emphysema and previous scans revealing pneumatoceles. 3. COVID-19 viral pneumonia, hospitalized for a prolonged period of time, he was at [facility], for quite some time. He was discharged home back in 06/2020. 4. History of right-sided cavitary lesion treated for lung abscess, with Augmentin for approximately 2-[address] chest revealing resolution. 5. Type 2 diabetes. 6. Mild narrowing of the upper trachea from previous tracheotomy. 7. 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 8. T12 mass, status post biopsy. Plan . Updated 06/24 02 titration Chest x-ray reviewed b lat infilt trace apical ptx + air leak on chest tube cont chest tube suction -20 Thoracic MRI with lytic lesion with an associated soft tissue mass along the right aspect of the T12 vertebral body most likely reflecting metastatic disease. neurosurgery does not see compromise of the canal or spinal cord. The tumor involves the right side of T12 vertebral body. neurosurgery does not feel surgery is indicated Await pathology discussed w pt rn Updated 06/23 02 titration Chest x-ray reviewed b lat infilt trace apical ptx + air leak on chest tube cont ct suction -20 add lovenox for dvt prophylaxis discussed w pt rn Updated 06/22 Chest x-ray reviewed no significant change Continue air leak on chest tube Discussed with at the bedside Continue current wall suction Updated 06/21 Special stains on biopsy pending, compatible with a malignant process, patient visited with medical oncologist chest x-ray reviewed, small pneumo no change from yesterday Chest tube with air leak continues Continue wall suction NADJA BRENNAN MD Jun 24, 2021 06:32
[2021-06-24 07:00] VITALS: BP 118/67
[2021-06-24] MEDS: METOPROLOL SUCC 24HR ER 50 MG TAB.ER.24H. PO SCH (08:09)
[2021-06-24] MEDS: LINAGLIPTIN 5 MG TABLET PO SCH (08:09)
[2021-06-24] MEDS: LISINOPRIL 5 MG TABLET. PO SCH (08:10)
[2021-06-24] MEDS: ASPIRIN ENTERIC COATED 81 MG TABLET.DR. PO SCH (08:10)
[2021-06-24] MEDS: SIMVASTATIN 20 MG TABLET PO SCH (08:10)
[2021-06-24] MEDS: LEVOTHYROXINE 112 MCG TABLET PO SCH (08:10)
--- NOTE | 2021-06-24 09:30 | PDOC ---
IM PROGRESS NOTES- Subjective Subjective Has some chest pain and congestion. Objective Vitals/I&O Vital Signs Date Time Temp Pulse Resp B/P (MAP) Pulse Ox O2 Delivery O2 Flow Rate FiO2 06/24/21 08:45 Nasal Cannula 3.0 06/24/21 08:10 64 118/67 06/24/21 07:00 98.2 18 97 98.2 I & O 06/23/21 06/23/21 06/24/21 15:00 23:00 07:00 Intake Total 240 ml Output Total 200 ml 200 ml Balance 40 ml -200 ml Physical Exam Physical Exam General Appearance - alert and in no distress Chest - decreased breath sounds at bases, chest tube right side Heart - S1 and S2 normal Abdomen - soft, non tender Neurological - alert and oriented Musculoskeletal - generalized weakness Extremities - no edema Labs Laboratory Tests Test 06/23/21 11:37 06/23/21 16:52 06/23/21 20:30 06/24/21 05:00 Glucose (Fingerstick) 139 mg/dL (70-99) H 182 mg/dL (70-99) H 118 mg/dL (70-99) H White Blood Count 13.9 x10^3/uL (4.0-11.0) H Red Blood Count 4.76 x10^6/uL (4.30-5.70) Hemoglobin 12.1 g/dL (13.0-17.5) L Hematocrit 38.3 % (39.0-53.0) L Mean Corpuscular Volume 80 fL (79-100) Mean Corpuscular Hemoglobin 25 pg (25-35) Mean Corpuscular Hemoglobin Concent 32 g/dL (31-37) Red Cell Distribution Width 14.7 % (11.5-14.5) H Platelet Count 367 x10^3/uL (140-400) Neutrophils (%) (Auto) 60 % (31-73) Lymphocytes (%) (Auto) 27 % (24-48) Monocytes (%) (Auto) 9 % (0-9) Eosinophils (%) (Auto) 4 % (0-3) H Basophils (%) (Auto) 0 % (0-3) Neutrophils # (Auto) 8.4 x10^3/uL (1.8-7.7) H Lymphocytes # (Auto) 3.7 x10^3/uL (1.0-4.8) Monocytes # (Auto) 1.2 x10^3/uL (0.0-1.1) H Eosinophils # (Auto) 0.6 x10^3/uL (0.0-0.7) Basophils # (Auto) 0.0 x10^3/uL (0.0-0.2) Sodium Level 138 mmol/L (136-145) Potassium Level 4.4 mmol/L (3.5-5.1) Chloride Level 100 mmol/L (98-107) Carbon Dioxide Level 32 mmol/L (21-32) Anion Gap 6 (6-14) Blood Urea Nitrogen 20 mg/dL (8-26) Creatinine 0.9 mg/dL (0.7-1.3) Estimated GFR (Cockcroft-Gault) 85.0 BUN/Creatinine Ratio 22 (6-20) H Glucose Level 113 mg/dL (70-99) H Calcium Level 9.0 mg/dL (8.5-10.1) Total Bilirubin 0.3 mg/dL (0.2-1.0) Aspartate Amino Transferase (AST) 19 U/L (15-37) Alanine Aminotransferase (ALT) 22 U/L (16-63) Alkaline Phosphatase 67 U/L (46-116) Total Protein 8.0 g/dL (6.4-8.2) Albumin 3.0 g/dL (3.4-5.0) L Albumin/Globulin Ratio 0.6 (1.0-1.7) L Laboratory Tests 06/24/21 05:00 Laboratory Tests 06/24/21 05:00 Meds Current Medications Medications (Trade) Dose Ordered Sig/Yoandy Route PRN Reason Start Time Stop Time Status Last Admin Dose Admin Lisinopril (Prinivil) 5 mg DAILY PO 06/24/21 09:00 06/24/21 08:10 Assessment Assessment IMPRESSION: 1. Wyurr-rt-yhveuce respiratory failure, multifactorial. 2. Spontaneous pneumothorax in a patient with a history of COVID with severe emphysema and previous scans revealing pneumatoceles. 3. COVID-19 viral pneumonia, hospitalized for a prolonged period of time, . 4. History of right-sided cavitary lesion treated for lung abscess, with Augmentin for approximately 2-[address] chest revealing resolution. 5. Type 2 diabetes. 6. Mild narrowing of the upper trachea from previous tracheotomy. 7. 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 8. T12 mass, status post biopsy. PLAN:neuro surgery consult Mild leukocytosis. pain control better 1. Continue chest tube placement. Chest x-ray on June 22 1. Trace right pneumothorax is stable with stable position of right pigtail catheter. 2. Changes of chronic interstitial disease likely from fibrosis, grossly stable including the more patchy appearance left lower lung. 2. Follow pathology report on T12 mass biopsy. 3. Continue oxygen supplementation. 4. Monitor blood sugars. 5. Continue home medications. Increase Percocet to 7.5/325 Q4H prn. Hyperkalemia. Potassium was 5.3. He is not on any potassium supplements. He is on lisinopril. Potassium is 4.4 on June 24, 2021. Decrease lisinopril to 5 mg daily. Patient's blood pressure is also low. T12 mass MRI of thoracic spine on June 22, 2021 1. Lytic lesion with an associated soft tissue mass along the right aspect of th e T12 vertebral body most likely reflecting metastatic disease. There is mild expansion of the right posterior aspect of the vertebral body with mild on the right lateral recess. 2. 5 cm right upper lobe thick-walled cavitary lesion concerning for malignancy. Another pleural metastasis is suspected in the right costophrenic angle. Patient was seen by Dr. Deshpande who feels that this is likely metastatic, there is no compromise of the canal or the spinal cord and does not require any surgery at this time. Await pathology report. Leukocytosis worse. This may be multifactorial. Consult Dr. Darnell Sánchez for infectious disease evaluation and management. Plan Plan For more details regarding further plans, please refer to the orders. Justifications for Admission Other Justification FAZAL RENAE MD Jun 24, 2021 09:30
[2021-06-24] MEDS ORDERED: SENNOSIDES/DOCUSATE 8.6/50MG TABLET. PO PRN (10:00)
[2021-06-24 10:56] VITALS: BP 92/58
[2021-06-24] MEDS: POLYETHYLENE GLYCOL 3350 17 GM PACKET. PO SCH (12:16)
[2021-06-24 15:00] VITALS: BP 103/65
[2021-06-24 19:00] VITALS: BP 121/61
[2021-06-24 23:00] VITALS: BP 96/53
[2021-06-25] MEDS: oxyCODONE/APAP 7.5/325 1 TAB TABLET PO PRN ×6 (00:34→20:38)
[2021-06-25 03:00] VITALS: BP 104/59
[2021-06-25 07:00] VITALS: BP 123/52
[2021-06-25 07:40] LABS: CALCIUM 9.1 mg/dL (8.5-10.1); CREATININE 0.9 mg/dL (0.7-1.3)
[2021-06-25 07:52] LABS: BASO # 0.1 x10^3/uL (0.0-0.2); BASO % 1 % (0-3); EOS # 0.6 x10^3/uL (0.0-0.7); EOS % 4 % (0-3); HEMOGLOBIN 12.1 g/dL (13.0-17.5); LYMPH # 3.9 x10^3/uL (1.0-4.8); LYMPH % 25 % (24-48); MEAN CORPUSCULAR HEMOGLOBIN 26 pg (25-35); MEAN CORPUSCULAR HGB CONC 32 g/dL (31-37); MEAN CORPUSCULAR VOLUME 81 fL (79-100); MONO # 1.2 x10^3/uL (0.0-1.1); MONO % 8 % (0-9); NEUT # 9.8 x10^3/uL (1.8-7.7); NEUT % 63 % (31-73); PLATELET COUNT 379 x10^3/uL (140-400); RED BLOOD COUNT 4.69 x10^6/uL (4.30-5.70); RED CELL DISTRIBUTION WIDTH 14.8 % (11.5-14.5); WHITE BLOOD COUNT 15.6 x10^3/uL (4.0-11.0)
--- NOTE | 2021-06-25 08:14 | CONS ---
DATE OF CONSULTATION: 06/25/2021 REQUESTING PHYSICIAN: Dr. Sanchez. REASON FOR CONSULTATION: Leukocytosis. HISTORY OF PRESENT ILLNESS: This is a 66-year-old gentleman who electively came in for a thoracic spinal mass biopsy. At that time, he was found to have large pneumothorax and chest tube was placed and the patient was admitted for further management. The patient currently has a chest tube in place and the mass results are pending, so far negative for bacterial and AFB culture or stain. The patient denies any fever. He does have some occasional night sweats or chills that he attributed to the heating heater in the close by. Patient has lost weight. He says in 03/2020 had COVID and he ended up in the hospital for 6 months, lost about 70 pounds or so. Since then, he had been doing well and he regained at least 30 of those. Denies any chronic cough, denies any fever, denies any nausea, vomiting, diarrhea, chest pain, abdominal pain. The patient does have right-sided thick wall cavitary lesion and then this T-spine mass showed up. Hence, he was here for outpatient scheduled for biopsy. PAST MEDICAL HISTORY: Positive for diabetes mellitus, mentioned about COVID. He has arthritis, chronic back problem, hypertension, cardiomyopathy, emphysema. SOCIAL HISTORY: Negative for smoking. He quit 10 years ago. No alcohol use or drug use. The patient denies ever been homeless or in assisted. The patient was born in [place] and came in here at the age of 17. No known TB contact with the family. CURRENT MEDICATIONS: Reviewed. REVIEW OF SYSTEMS: As in HPI. All other systems reviewed are negative. ALLERGIES: No known drug allergies. PHYSICAL EXAMINATION: GENERAL: Alert and oriented gentleman, not in distress. VITAL SIGNS: Stable, afebrile. HEENT: NAD. NECK: Supple, no JVP, no lymphadenopathy. LUNGS: Clear. HEART: S1, S2, regular. ABDOMEN: Soft, nontender, no organomegaly. EXTREMITIES: No edema, cyanosis. SKIN: Unremarkable. Right-sided chest tube is in place. LABORATORY DATA: White count is 13.9. BUN and creatinine is normal. AFB stain negative of the biopsy and the regular gram stain is negative and the culture is negative. He has had bronchoscopy done in 02/2021, which was also AFB and regular culture negative. The thoracic spine MRI showed lytic lesion with an associated soft tissue mass along the right aspect of the T12 vertebral body and also there is a 5 cm right upper lobe thick-walled cavitary lesion. The patient had a CT abdomen and pelvis on of this month, had shown surgical changes of the infrarenal abdominal aortic aneurysm repair with aortoiliac stent graft. Destructive lesion of T12 was seen. He had a CT chest on 04/2021, which showed resolution of the previously seen air fluid levels within the thicker wall cavitary lesion. The patient was treated at that time as a lung abscess/empyema. IMPRESSION: 1. Leukocytosis, likely reactive. 2. T12 vertebral body mass. Biopsies was done. Cultures are so far negative. Pathology is pending. 3. Right upper lobe cavitary lesion. Prior bronchoscopy cultures are negative. Suspected malignancy. 4. Diabetes. 5. Cardiomyopathy. RECOMMENDATIONS: Continue without any antibiotics at this point. We will follow the biopsy results. There is a possibility that this could be tuberculosis, but so far not showing any positive testing yet. Thank you very much, Dr. Sanchez, for giving me opportunity to participate in this patient's care. MIRI/BERNARD YOUNGBLOOD: Michele TID: [id number]
[2021-06-25] MEDS: METOPROLOL SUCC 24HR ER 50 MG TAB.ER.24H. PO SCH (08:28)
[2021-06-25] MEDS: SIMVASTATIN 20 MG TABLET PO SCH (08:28)
[2021-06-25] MEDS: ASPIRIN ENTERIC COATED 81 MG TABLET.DR. PO SCH (08:28)
[2021-06-25] MEDS: LEVOTHYROXINE 112 MCG TABLET PO SCH (08:28)
[2021-06-25] MEDS: LISINOPRIL 5 MG TABLET. PO SCH (08:29)
[2021-06-25] MEDS: POLYETHYLENE GLYCOL 3350 17 GM PACKET. PO SCH (08:29)
[2021-06-25] MEDS: LINAGLIPTIN 5 MG TABLET PO SCH (08:29)
--- NOTE | 2021-06-25 08:36 | RAD ---
EXAM: Chest, single view. HISTORY: Pneumothorax. COMPARISON: 06/23/2021 FINDINGS: A frontal view of the chest obtained. There has been no significant change in a small right pneumothorax. There is a right pleural drainage catheter unchanged in position. There is stable coar se diffuse increased interstitial opacity. There is no pleural effusion. The heart is normal in size. IMPRESSION: 1. Stable small right pneumothorax and right pleural drainage catheter. 2. Stable chronic diffuse interstitial changes. Electronically signed by: Sandy Torres MD (06/25/2021 8:33 AM) [id number]
--- NOTE | 2021-06-25 08:47 | PDOC ---
IM PROGRESS NOTES- Subjective Subjective Has some chest pain and congestion. Objective Vitals/I&O Vital Signs Date Time Temp Pulse Resp B/P (MAP) Pulse Ox O2 Delivery O2 Flow Rate FiO2 06/25/21 07:44 Nasal Cannula 3.0 06/25/21 07:00 97.6 59 18 123/52 (75) 96 97.6 I & O0 06/24/21 06/24/21 06/25/21 15:00 23:00 07:00 Intake Total 800 ml 500 ml Output Total 650 ml 750 ml 300 ml Balance 150 ml -250 ml -300 ml Physical Exam Physical Exam General Appearance - alert and in no distress Chest - decreased breath sounds at bases, chest tube on right side Heart - S1 and S2 normal Abdomen - soft, non tender Neurological - alert and oriented Musculoskeletal - generalized weakness Extremities - no edema Labs Laboratory Tests Test 06/24/21 20:15 06/25/21 06:25 Glucose (Fingerstick) 128 mg/dL (70-99) H White Blood Count 15.6 x10^3/uL (4.0-11.0) H Red Blood Count 4.69 x10^6/uL (4.30-5.70) Hemoglobin 12.1 g/dL (13.0-17.5) L Hematocrit 38.0 % (39.0-53.0) L Mean Corpuscular Volume 81 fL (79-100) Mean Corpuscular Hemoglobin 26 pg (25-35) Mean Corpuscular Hemoglobin Concent 32 g/dL (31-37) Red Cell Distribution Width 14.8 % (11.5-14.5) H Platelet Count 379 x10^3/uL (140-400) Neutrophils (%) (Auto) 63 % (31-73) Lymphocytes (%) (Auto) 25 % (24-48) Monocytes (%) (Auto) 8 % (0-9) Eosinophils (%) (Auto) 4 % (0-3) H Basophils (%) (Auto) 1 % (0-3) Neutrophils # (Auto) 9.8 x10^3/uL (1.8-7.7) H Lymphocytes # (Auto) 3.9 x10^3/uL (1.0-4.8) Monocytes # (Auto) 1.2 x10^3/uL (0.0-1.1) H Eosinophils # (Auto) 0.6 x10^3/uL (0.0-0.7) Basophils # (Auto) 0.1 x10^3/uL (0.0-0.2) Sodium Level 139 mmol/L (136-145) Potassium Level 5.0 mmol/L (3.5-5.1) Chloride Level 98 mmol/L (98-107) Carbon Dioxide Level 31 mmol/L (21-32) Anion Gap 10 (6-14) Blood Urea Nitrogen 24 mg/dL (8-26) Creatinine 0.9 mg/dL (0.7-1.3) Estimated GFR (Cockcroft-Gault) 85.0 Glucose Level 108 mg/dL (70-99) H Calcium Level 9.1 mg/dL (8.5-10.1) Laboratory Tests 06/25/21 06:25 Laboratory Tests 06/25/21 06:25 Meds Current Medications Medications (Trade) Dose Ordered Sig/Yoandy Route PRN Reason Start Time Stop Time Status Last Admin Dose Admin Lisinopril (Prinivil) 5 mg DAILY PO 06/24/21 09:00 06/24/21 08:10 Polyethylene Glycol (miraLAX PACKET) 17 gm DAILY PO 06/24/21 10:00 06/25/21 08:29 Senna/Docusate Sodium (Senna Plus) 2 tab [id number] PRN PO CONSTIPATION 06/24/21 10:00 06/24/21 12:16 Assessment Assessment IMPRESSION: 1. Jrkyj-qs-dsipetw respiratory failure, multifactorial. 2. Spontaneous pneumothorax in a patient with a history of COVID with severe emphysema and previous scans revealing pneumatoceles. 3. COVID-19 viral pneumonia, hospitalized for a prolonged period of time, . 4. History of right-sided cavitary lesion treated for lung abscess, with Augmentin for approximately 2-[address] chest revealing resolution. 5. Type 2 diabetes. 6. Mild narrowing of the upper trachea from previous tracheotomy. 7. 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 8. T12 mass, status post biopsy. PLAN:neuro surgery consult Mild leukocytosis. pain control better 1. Continue chest tube placement. Chest x-ray on June 22 1. Trace right pneumothorax is stable with stable position of right pigtail catheter. 2. Changes of chronic interstitial disease likely from fibrosis, grossly stable including the more patchy appearance left lower lung. 2. Follow pathology report on T12 mass biopsy. 3. Continue oxygen supplementation. 4. Monitor blood sugars. 5. Continue home medications. Increase Percocet to 7.5/325 Q4H prn. Hyperkalemia. Potassium was 5.3. He is not on any potassium supplements. He is on lisinopril. Potassium is 4.4 on June 24, 2021. Decrease lisinopril to 5 mg daily. Patient's blood pressure is also low. T12 mass MRI of thoracic spine on June 22, 2021 1. Lytic lesion with an associated soft tissue mass along the right aspect of the T12 vertebral body most likely reflecting metastatic disease. There is mild expansion of the right posterior aspect of the vertebral body with mild on the right lateral recess. 2. 5 cm right upper lobe thick-walled cavitary lesion concerning for malignancy. Another pleural metastasis is suspected in the right costophrenic angle. Patient was seen by Dr. Deshpande who feels that this is likely metastatic, there is no compromise of the canal or the spinal cord and does not require any surgery at this time. 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 This has been discussed with the patient. Consult Dr. Miller. Leukocytosis worse. This may be multifactorial. Consult Dr. Darnell Sánchez for infectious disease evaluation and management. Patient states that he has not been taking metoprolol and lisinopril for quite some time. Lisinopril used to cause cough. Discontinue lisinopril and metoprolol. Change ADA diet to regular diet because of his cancer. Plan Plan For more details regarding further plans, please refer to the orders. Justifications for Admission Other Justification FAZAL RENAE MD Jun 25, 2021 08:47
[2021-06-25] MEDS ORDERED: CONTRAST GIVEN. MC PRN (10:30)
[2021-06-25] MEDS ORDERED: IOHEXOL 300 MG/ML 100ML VIAL. IV ONE (10:30)
--- NOTE | 2021-06-25 10:33 | PDOC ---
PULMONARY PROGRESS NOTES DATE: 06/25/21 TIME: 10:27 Subjective denies shortness of breath chest tube to suction + air leak, no subq air. Vitals Vital Signs Date Time Temp Pulse Resp B/P (MAP) Pulse Ox O2 Delivery O2 Flow Rate FiO2 06/25/21 07:44 Nasal Cannula 3.0 06/25/21 07:00 97.6 59 18 123/52 (75) 96 97.6 ROS: No Nausea, No Chest Pain, No Abdominal Pain, No Increase Cough General: Alert HEENT: Other (nc at [facility] ) Cardiovascular: S1, S2 Abdomen: Soft, Non-tender Neuro Exam: Alert Extremities: No Edema Skin: Warm Labs Laboratory Tests Test 06/23/21 11:37 06/23/21 16:52 06/23/21 20:30 06/24/21 05:00 Glucose (Fingerstick) 139 mg/dL (70-99) 182 mg/dL (70-99) 118 mg/dL (70-99) White Blood Count 13.9 x10^3/uL (4.0-11.0) Red Blood Count 4.76 x10^6/uL (4.30-5.70) Hemoglobin 12.1 g/dL (13.0-17.5) Hematocrit 38.3 % (39.0-53.0) Mean Corpuscular Volume 80 fL (79-100) Mean Corpuscular Hemoglobin 25 pg (25-35) Mean Corpuscular Hemoglobin Concent 32 g/dL (31-37) Red Cell Distribution Width 14.7 % (11.5-14.5) Platelet Count 367 x10^3/uL (140-400) Neutrophils (%) (Auto) 60 % (31-73) Lymphocytes (%) (Auto) 27 % (24-48) Monocytes (%) (Auto) 9 % (0-9) Eosinophils (%) (Auto) 4 % (0-3) Basophils (%) (Auto) 0 % (0-3) Neutrophils # (Auto) 8.4 x10^3/uL (1.8-7.7) Lymphocytes # (Auto) 3.7 x10^3/uL (1.0-4.8) Monocytes # (Auto) 1.2 x10^3/uL (0.0-1.1) Eosinophils # (Auto) 0.6 x10^3/uL (0.0-0.7) Basophils # (Auto) 0.0 x10^3/uL (0.0-0.2) Sodium Level 138 mmol/L (136-145) Potassium Level 4.4 mmol/L (3.5-5.1) Chloride Level 100 mmol/L (98-107) Carbon Dioxide Level 32 mmol/L (21-32) Anion Gap 6 (6-14) Blood Urea Nitrogen 20 mg/dL (8-26) Creatinine 0.9 mg/dL (0.7-1.3) Estimated GFR (Cockcroft-Gault) 85.0 BUN/Creatinine Ratio 22 (6-20) Glucose Level 113 mg/dL (70-99) Calcium Level 9.0 mg/dL (8.5-10.1) Total Bilirubin 0.3 mg/dL (0.2-1.0) Aspartate Amino Transf (AST/SGOT) 19 U/L (15-37) Alanine Aminotransferase (ALT/SGPT) 22 U/L (16-63) Alkaline Phosphatase 67 U/L (46-116) Total Protein 8.0 g/dL (6.4-8.2) Albumin 3.0 g/dL (3.4-5.0) Albumin/Globulin Ratio 0.6 (1.0-1.7) Test 06/24/21 20:15 06/25/21 06:25 Glucose (Fingerstick) 128 mg/dL (70-99) White Blood Count 15.6 x10^3/uL (4.0-11.0) Red Blood Count 4.69 x10^6/uL (4.30-5.70) Hemoglobin 12.1 g/dL (13.0-17.5) Hematocrit 38.0 % (39.0-53.0) Mean Corpuscular Volume 81 fL (79-100) Mean Corpuscular Hemoglobin 26 pg (25-35) Mean Corpuscular Hemoglobin Concent 32 g/dL (31-37) Red Cell Distribution Width 14.8 % (11.5-14.5) Platelet Count 379 x10^3/uL (140-400) Neutrophils (%) (Auto) 63 % (31-73) Lymphocytes (%) (Auto) 25 % (24-48) Monocytes (%) (Auto) 8 % (0-9) Eosinophils (%) (Auto) 4 % (0-3) Basophils (%) (Auto) 1 % (0-3) Neutrophils # (Auto) 9.8 x10^3/uL (1.8-7.7) Lymphocytes # (Auto) 3.9 x10^3/uL (1.0-4.8) Monocytes # (Auto) 1.2 x10^3/uL (0.0-1.1) Eosinophils # (Auto) 0.6 x10^3/uL (0.0-0.7) Basophils # (Auto) 0.1 x10^3/uL (0.0-0.2) Sodium Level 139 mmol/L (136-145) Potassium Level 5.0 mmol/L (3.5-5.1) Chloride Level 98 mmol/L (98-107) Carbon Dioxide Level 31 mmol/L (21-32) Anion Gap 10 (6-14) Blood Urea Nitrogen 24 mg/dL (8-26) Creatinine 0.9 mg/dL (0.7-1.3) Estimated GFR (Cockcroft-Gault) 85.0 Glucose Level 108 mg/dL (70-99) Calcium Level 9.1 mg/dL (8.5-10.1) Laboratory Tests Test 06/24/21 20:15 06/25/21 06:25 Glucose (Fingerstick) 128 mg/dL (70-99) White Blood Count 15.6 x10^3/uL (4.0-11.0) Red Blood Count 4.69 x10^6/uL (4.30-5.70) Hemoglobin 12.1 g/dL (13.0-17.5) Hematocrit 38.0 % (39.0-53.0) Mean Corpuscular Volume 81 fL (79-100) Mean Corpuscular Hemoglobin 26 pg (25-35) Mean Corpuscular Hemoglobin Concent 32 g/dL (31-37) Red Cell Distribution Width 14.8 % (11.5-14.5) Platelet Count 379 x10^3/uL (140-400) Neutrophils (%) (Auto) 63 % (31-73) Lymphocytes (%) (Auto) 25 % (24-48) Monocytes (%) (Auto) 8 % (0-9) Eosinophils (%) (Auto) 4 % (0-3) Basophils (%) (Auto) 1 % (0-3) Neutrophils # (Auto) 9.8 x10^3/uL (1.8-7.7) Lymphocytes # (Auto) 3.9 x10^3/uL (1.0-4.8) Monocytes # (Auto) 1.2 x10^3/uL (0.0-1.1) Eosinophils # (Auto) 0.6 x10^3/uL (0.0-0.7) Basophils # (Auto) 0.1 x10^3/uL (0.0-0.2) Sodium Level 139 mmol/L (136-145) Potassium Level 5.0 mmol/L (3.5-5.1) Chloride Level 98 mmol/L (98-107) Carbon Dioxide Level 31 mmol/L (21-32) Anion Gap 10 (6-14) Blood Urea Nitrogen 24 mg/dL (8-26) Creatinine 0.9 mg/dL (0.7-1.3) Estimated GFR (Cockcroft-Gault) 85.0 Glucose Level 108 mg/dL (70-99) Calcium Level 9.1 mg/dL (8.5-10.1) Medications Active Scripts Medications Dose Route/Sig Max Daily Dose Days Date Category Hydrocodone-Apap 5-325 (Hydrocodone Bit/Acetaminophen) 1 Tab Tablet 1 Tab PO PRN Q6HRS PRN 06/19/21 Reported Tizanidine Hcl 4 Mg Tablet 2 Mg PO TID PRN 06/19/21 Reported Aspir 81 (Aspirin) 81 Mg Tablet.dr 81 Mg PO DAILY 11/06/13 Reported Lisinopril 10 Mg Tablet 10 Mg PO DAILY 11/06/13 Reported Onglyza (Saxagliptin Hcl) 5 Mg Tablet 5 Mg PO DAILY 11/06/13 Reported Metformin Hcl 500 Mg Tablet 500 Mg PO DAILY 11/06/13 Reported Levothyroxine Sodium 112 Mcg Tablet 112 Mcg PO DAILYAC 11/06/13 Reported Toprol Xl (Metoprolol Succinate) 50 Mg Tab.er.24h 50 Mg PO DAILY 11/06/13 Reported Simvastatin 20 Mg Tablet 20 Mg PO DAILY 11/06/13 Reported Comments 06/23 cxr reviewed 1. Stable small right pneumothorax with a chest tube in place. 2. Multiple blebs in the right apex. Diffuse interstitial lung disease. cxr 06/22, reviewed 1. Trace right pneumothorax is stable with stable position of right pigtail catheter. 2. Changes of chronic interstitial disease likely from fibrosis, grossly stable including the more patchy appearance left lower lung. Impression . IMPRESSION: 1. Xqfaf-af-bqomdzv respiratory failure, multifactorial. 2. Spontaneous pneumothorax in a patient with a history of COVID with severe emphysema and previous scans revealing pneumatoceles. 3. COVID-19 viral pneumonia, hospitalized for a prolonged period of time, [facility] at [facility], for quite some time. He was discharged home back in 06/2020. 4. History of right-sided cavitary lesion treated for lung abscess, with Augmentin for approximately 2-[address] chest revealing resolution. 5. Type 2 diabetes. 6. Mild narrowing of the upper trachea from previous tracheotomy. 7. 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 8. T12 mass, status post biopsy. Plan . 06/25 O2 titration as able chest tube with +air leak, continues on suction -20 await full pathology report neurosurgery no planning for surgery at this point Updated 06/24 02 titration Chest x-ray reviewed b lat infilt trace apical ptx + air leak on chest tube cont chest tube suction -20 Thoracic MRI with lytic lesion with an associated soft tissue mass along the right aspect of the T12 vertebral body most likely reflecting metastatic disease. neurosurgery does not see compromise of the canal or spinal cord. The tumor involves the right side of T12 vertebral body. neurosurgery does not feel surgery is indicated Await pathology discussed w pt HANNAH Palmer MD Jun 25, 2021 10:33
[2021-06-25 11:00] VITALS: BP 109/52
--- NOTE | 2021-06-25 11:29 | NUR ---
SW following. Discussed with RN, pt from home, uses oxygen at home, ada diet. Pt still with chest tube in place. Pt will discharge home when medically stable. SW will continue to follow.
--- NOTE | 2021-06-25 11:52 | RAD ---
EXAM: Chest CT with intravenous contrast. HISTORY: Lung mass. TECHNIQUE: Computed tomographic images of the chest were obtained with intravenous contrast. Multipla silvio reformatting was performed. *One or more of the following individualized dose reduction techniques were utilized for this examina tion: 1. Automated exposure control. 2. Adjustment of the mA and/or kV according to patient size. 3. Use of iterative reconstruction technique. COMPARISON: 04/05/2021. FINDINGS: There is irregular right superior medial thorax pleural thickening with adjacent thick-wall ed cavitary lesion and overlying destructive changes involving the posterior medial right fifth rib. This measures approximately 6 cm in maximum dimension. There is a small to moderate pneumothorax. The re is a and anterior right pleural drainage catheter in expected position. There is pulmonary emphyse ma and fibrosis. There is superimposed bilateral lower lobe predominant pleural parenchymal scarring. The heart is normal in size. There is trace pericardial fluid. There is coronary artery calcification . There is a prominent right paratracheal lymph node measuring 1.3 cm. There is a patulous distal eso phagus. There is mild adrenal gland thickening without a discrete nodule. There is a small simple cys t within the upper pole the right kidney. There is also a simple cyst within the posterior left kidne y measuring 1.6 cm. Follow-up is not routinely performed for simple cysts. 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 There is a destru ctive lytic lesion involving the right aspect of the T12 vertebral body and right T12 pedicle. This e xtends beyond the cortex into the central canal, without convincing central canal stenosis. There is also soft tissue extension into the right retrocrural space at this level, measuring approximately 4. 5 cm. There is adjacent nodular thickening of the pleura lateral to this location measuring 2.1 cm. IMPRESSION: 1. Right superior medial thorax pleural-based mass with associated thick-walled cavitary component an d destructive changes involving the overlying posterior medial right fifth rib measuring approximatel y 6.0 cm in maximum dimension. The size of this lesion and associated bony destruction has increased compared to the study performed 04/05/2021. Correlate with pathology findings from the biopsy performe d 06/19/2021. 2. Destructive lytic lesion involving T12 with extension to the central canal and overlying retrocrur al space, stable to slightly increased compared to the study performed 06/08/2021. 3. Small moderate right pneumothorax. There is a anterior right pleural drainage catheter in expected position. 4. Severe emphysema with superimposed pulmonary fibrosis and multifocal pleural parenchymal scarring. 5. Stable prominent right paratracheal lymph node. This is indeterminate and may be reactive in etiol ogy. Electronically signed by: Sandy Torres MD (06/25/2021 11:49 AM) [id number]
[2021-06-25 15:00] VITALS: BP 110/64
--- NOTE | 2021-06-25 18:06 | PATHOLOGY ---
[facility] Accession Number: [id number] . 01 Material submitted: . vertebral column - T-12 BONE BIOPSY. Modifiers: T-12 . 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 SEE COMMENT. (JPM:pit/mml; 06/21/2021) QTP 06/25/2021 1758 Local . 02 Comment: Sections of the T-12 bone biopsy reveal a segment of fibroadipose tissue which is partially replaced by a malignant neoplasm. The tumor cells predominantly have a spindle-shaped appearance. Focally, the tumor cells have an epithelioid appearance and are arranged in small solid nests. There is no evidence of glandular or squamous differentiation. The tumor cells possess enlarged rounded to ovoid moderately pleomorphic hyperchromatic nuclei containing prominent nucleoli. Tumor cells have modest amounts of pale eosinophilic cytoplasm. There are foci of tumor necrosis. Mitotic figures are readily demonstrated. A panel of immunoperoxidase stains is obtained on A1 and yield the following results: . AE1/AE3: Tumor cells positive Cytokeratin REHAN: Tumor cells positive High molecular weight cytokeratin: Tumor cells positive CK5/6: Tumor cells positive P63: Tumor cells positive Vimentin: Tumor cells positive Smooth muscle actin: Tumor cells negative Desmin: Tumor cells negative S100: Tumor cells negative CD34: Tumor cells negative SOX-10: Tumor cells negative Cytokeratin 7: Tumor cells positive P40: Tumor cells positive TTF-1: Tumor cells negative CK20: Tumor cells negative PSA: Tumor cells negative PAX-8: Tumor cells negative WT-1: Tumor cells negative Calretinin: Tumor cells negative D2-40: Tumor cells positive . The differential diagnosis includes poorly-differentiated non-small cell carcinoma with sarcomatoid features, and sarcomatoid mesothelioma. 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 The immunophenotypic findings are compatible with that diagnosis, and clinically, features of malignant mesothelioma, including pleural effusion and fibrous plaques, are not present. The case is also examined by Dr. Corey Rock, who concurs with the diagnosis. The results are reported to Dr. Sanchez on 06/25/2021 at 8:50 a.m. . Immunoperoxidase performed on A1: . AE1/AE3, CK REHAN, high molecular weight cytokeratin, CK5/6, p63, Vimentin, SMA, Desmin, S100, CD34, SOX-10, CK7, p40, TTF-1, WT-1, Calretinin, D2-40, PSA, CK20, and PAX-8 . (JPM:pit/mml; 06/25/2021) . 02 Electronically signed: . Johnny Fontanez MD, Pathologist NPI- [id number] . 01 Gross description: . The specimen is received in formalin, labeled "Weston Cruz, T12 bone BX". Received is a single segment of pale bender to red-brown, cylindrical tissue measuring 2.5 cm in length and 0.1 cm in diameter. The specimen is entirely submitted in cassette A1, following light decalcification. ([facility]; 06/19/2021) NRI/NRI 06/19/2021 1601 Local . 02 Pathologist provided ICD-10: C41.2 . 02 CPT . 725547, P49916, J15021, 511130 Specimen Comment: A courtesy copy of this report has been sent to [phone], [phone] Specimen Comment: [id number], Specimen Comment: Report sent to , DR OCONNELL, Specimen Comment: DR HAMMER/DR MARTIN Performed at: 01 [facility] [address], [place] [id number] MD Ronnie Awan MD Phone: [phone] Performed at: 02 [facility] [address] [place], [place] [id number] MD Johnny Fontanez MD Phone: [phone]
[2021-06-25 19:00] VITALS: BP 121/64
[2021-06-25 23:00] VITALS: BP 122/72
[2021-06-26] MEDS: oxyCODONE/APAP 7.5/325 1 TAB TABLET PO PRN ×6 (00:39→21:16)
[2021-06-26 03:00] VITALS: BP 130/66
[2021-06-26 04:17] LABS: BASO # 0.1 x10^3/uL (0.0-0.2); BASO % 0 % (0-3); EOS # 0.7 x10^3/uL (0.0-0.7); EOS % 6 % (0-3); HEMATOCRIT 37.2 % (39.0-53.0); HEMOGLOBIN 11.9 g/dL (13.0-17.5); LYMPH # 2.8 x10^3/uL (1.0-4.8); LYMPH % 22 % (24-48); MEAN CORPUSCULAR HEMOGLOBIN 26 pg (25-35); MEAN CORPUSCULAR HGB CONC 32 g/dL (31-37); MEAN CORPUSCULAR VOLUME 80 fL (79-100); MONO # 0.9 x10^3/uL (0.0-1.1); MONO % 7 % (0-9); NEUT # 8.2 x10^3/uL (1.8-7.7); NEUT % 64 % (31-73); PLATELET COUNT 369 x10^3/uL (140-400); RED BLOOD COUNT 4.63 x10^6/uL (4.30-5.70); RED CELL DISTRIBUTION WIDTH 14.7 % (11.5-14.5); WHITE BLOOD COUNT 12.7 x10^3/uL (4.0-11.0)
[2021-06-26 04:33] LABS: CALCIUM 9.1 mg/dL (8.5-10.1); CREATININE 0.9 mg/dL (0.7-1.3); POTASSIUM 4.3 mmol/L (3.5-5.1)
[2021-06-26 07:15] VITALS: BP 111/63
[2021-06-26] MEDS: POLYETHYLENE GLYCOL 3350 17 GM PACKET. PO SCH (08:21)
[2021-06-26] MEDS: LEVOTHYROXINE 112 MCG TABLET PO SCH (08:22)
[2021-06-26] MEDS: LINAGLIPTIN 5 MG TABLET PO SCH (08:22)
[2021-06-26] MEDS: ASPIRIN ENTERIC COATED 81 MG TABLET.DR. PO SCH (08:22)
[2021-06-26] MEDS: SIMVASTATIN 20 MG TABLET PO SCH (08:22)
--- NOTE | 2021-06-26 08:56 | PDOC ---
PROGRESS NOTES Date of Service: DATE: 06/26/21 TIME: 08:56 Subjective Subjective feels ok today Objective Objective Vital Signs Date Time Temp Pulse Resp B/P (MAP) Pulse Ox O2 Delivery O2 Flow Rate FiO2 06/26/21 07:40 Nasal Cannula 3.0 06/26/21 07:15 98.2 63 18 111/63 (79) 95 98.2 Intake and Output 06/26/21 07:00 Intake Total 550 ml Output Total 400 ml Balance 150 ml Intake Oral 550 ml Output Urine Total 400 ml Physical Exam Abdomen: Soft Heart: Regular rate, Normal S1, Normal S2 Extremities: No clubbing General: Alert HEENT: Atraumatic Lungs: Clear to auscultation MUSCULOSKELETAL: No deformity Neck: No JVD Neuro: Normal speech Psych/Mental Status: Mental status NL Skin: No breakdown COMMENT rt chest pleuravac Assessment Assessment IMPRESSION: 1. Septv-ip-yfmglwd respiratory failure, multifactorial. 2. Spontaneous pneumothorax in a patient with a history of COVID with severe emphysema and previous scans revealing pneumatoceles. 3. COVID-19 viral pneumonia, hospitalized for a prolonged period of time, . 4. History of right-sided cavitary lesion treated for lung abscess, with Augmentin for approximately 2-[address] chest revealing resolution. 5. Type 2 diabetes. 6. Mild narrowing of the upper trachea from previous tracheotomy. 7. 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 8. T12 mass, status post biopsy. PLAN:Looks like primary lung ca with mets to vertebra and spine . will discus with oncology. labs ok neuro surgery consult appreciated Mild leukocytosis. pain control better 1. Continue chest tube placement. Chest x-ray on June 22 1. Trace right pneumothorax is stable with stable position of right pigtail catheter. 2. Changes of chronic interstitial disease likely from fibrosis, grossly stable including the more patchy appearance left lower lung. 2. Follow pathology report on T12 mass biopsy. 3. Continue oxygen supplementation. 4. Monitor blood sugars. 5. Continue home medications. Increase Percocet to 7.5/325 Q4H prn. Hyperkalemia. Potassium was 5.3. He is not on any potassium supplements. He is on lisinopril. Potassium is 4.4 on June 24, 2021. Decrease lisinopril to 5 mg daily. Patient's blood pressure is also low. T12 mass MRI of thoracic spine on June 22, 2021 1. Lytic lesion with an associated soft tissue mass along the right aspect of the T12 vertebral body most likely reflecting metastatic disease. There is mild expansion of the right posterior aspect of the vertebral body with mild on the right lateral recess. 2. 5 cm right upper lobe thick-walled cavitary lesion concerning for malignancy. Another pleural metastasis is suspected in the right costophrenic angle. Patient was seen by Dr. Deshpande who feels that this is likely metastatic, there is no compromise of the canal or the spinal cord and does not require any surgery at this time. 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 This has been discussed with the patient. Consult Dr. Miller. Leukocytosis worse. This may be multifactorial. Consult Dr. Darnell Sánchez for infectious disease evaluation and management. Patient states that he has not been taking metoprolol and lisinopril for quite some time. Lisinopril used to cause cough. Discontinue lisinopril and metoprolol. Change ADA diet to regular diet because of his cancer. Comment Review of Relevant I have reviewed the following items del (where applicable) has been applied. Labs Laboratory Tests Test 06/26/21 03:20 White Blood Count 12.7 x10^3/uL (4.0-11.0) Red Blood Count 4.63 x10^6/uL (4.30-5.70) Hemoglobin 11.9 g/dL (13.0-17.5) Hematocrit 37.2 % (39.0-53.0) Mean Corpuscular Volume 80 fL (79-100) Mean Corpuscular Hemoglobin 26 pg (25-35) Mean Corpuscular Hemoglobin Concent 32 g/dL (31-37) Red Cell Distribution Width 14.7 % (11.5-14.5) Platelet Count 369 x10^3/uL (140-400) Neutrophils (%) (Auto) 64 % (31-73) Lymphocytes (%) (Auto) 22 % (24-48) Monocytes (%) (Auto) 7 % (0-9) Eosinophils (%) (Auto) 6 % (0-3) Basophils (%) (Auto) 0 % (0-3) Neutrophils # (Auto) 8.2 x10^3/uL (1.8-7.7) Lymphocytes # (Auto) 2.8 x10^3/uL (1.0-4.8) Monocytes # (Auto) 0.9 x10^3/uL (0.0-1.1) Eosinophils # (Auto) 0.7 x10^3/uL (0.0-0.7) Basophils # (Auto) 0.1 x10^3/uL (0.0-0.2) Sodium Level 137 mmol/L (136-145) Potassium Level 4.3 mmol/L (3.5-5.1) Chloride Level 99 mmol/L (98-107) Carbon Dioxide Level 32 mmol/L (21-32) Anion Gap 6 (6-14) Blood Urea Nitrogen 24 mg/dL (8-26) Creatinine 0.9 mg/dL (0.7-1.3) Estimated GFR (Cockcroft-Gault) 85.0 Glucose Level 104 mg/dL (70-99) Calcium Level 9.1 mg/dL (8.5-10.1) Microbiology 06/19/21 AFB Specimen Processing Tissue - Final, Resulted 06/19/21 Acid Fast Bacilli Culture, Resulted Pending 06/19/21 Gram Stain - Final, Resulted 06/19/21 Fungal Culture, Resulted Pending 06/19/21 Fungal Culture Result 1, Resulted Pending Medications Current Medications Info (CONTRAST GIVEN -- Rx MONITORING) 1 each PRN DAILY PRN MC SEE COMMENTS; Start 06/25/21 at 10:30; Stop 06/27/21 at 10:29 Iohexol (Omnipaque 300 Mg/ml) 75 ml 1X ONCE IV Last administered on 06/25/21at 10:54; Start 06/25/21 at 10:30; Stop 06/25/21 at 10:31; Status DC Vitals/I & O Vital Sign - Last 24 Hours 06/25/21 06/25/21 06/25/21 06/25/21 11:00 15:00 19:00 20:38 Temp 97.7 97.7 98.0 97.7 97.7 98.0 Pulse 71 64 72 Resp 18 18 18 16 B/P (MAP) 109/52 (71) 110/64 (79) 121/64 (83) Pulse Ox 95 94 95 95 O2 Delivery Nasal Cannula Nasal Cannula Nasal Cannula Nasal Cannula O2 Flow Rate 3.0 3.0 3.0 3.0 06/25/21 06/25/21 06/25/21 06/26/21 20:52 22:45 23:00 00:39 Temp 98.1 98.1 Pulse 71 Resp 16 18 16 B/P (MAP) 122/72 (89) Pulse Ox 95 98 98 O2 Delivery Nasal Cannula Nasal Cannula Nasal Cannula Nasal Cannula O2 Flow Rate 3.0 3.0 3.0 3.0 06/26/21 06/26/21 06/26/21 06/26/21 01:09 03:00 04:43 05:32 Temp 98.1 98.1 Pulse 66 Resp 16 18 16 16 B/P (MAP) 130/66 (87) Pulse Ox 98 96 96 96 O2 Delivery Nasal Cannula Nasal Cannula Nasal Cannula Nasal Cannula O2 Flow Rate 3.0 3.0 3.0 3.0 06/26/21 06/26/21 07:15 07:40 Temp 98.2 98.2 Pulse 63 Resp 18 B/P (MAP) 111/63 (79) Pulse Ox 95 O2 Delivery Nasal Cannula Nasal Cannula O2 Flow Rate 3.0 3.0 Intake and Output 06/25/21 06/25/21 06/26/21 15:00 23:00 07:00 Intake Total 250 ml 300 ml Output Total 200 ml 200 ml Balance 250 ml 100 ml -200 ml Justifications for Admission Other Justification ROSE OCONNELL MD Jun 26, 2021 08:56
--- NOTE | 2021-06-26 10:32 | PDOC ---
PULMONARY PROGRESS NOTES DATE: 06/26/21 TIME: 10:32 Subjective denies shortness of breath chest tube to suction + air leak, no subq air. Vitals Vital Signs Date Time Temp Pulse Resp B/P (MAP) Pulse Ox O2 Delivery O2 Flow Rate FiO2 06/26/21 07:40 Nasal Cannula 3.0 06/26/21 07:15 98.2 63 18 111/63 (79) 95 98.2 ROS: No Nausea, No Chest Pain, No Abdominal Pain, No Increase Cough General: Alert HEENT: Other (nc at perrl ) Cardiovascular: S1, S2 Abdomen: Soft, Non-tender Neuro Exam: Alert Extremities: No Edema Skin: Warm Labs Laboratory Tests Test 06/24/21 20:15 06/25/21 06:25 06/26/21 03:20 Glucose (Fingerstick) 128 mg/dL (70-99) White Blood Count 15.6 x10^3/uL (4.0-11.0) 12.7 x10^3/uL (4.0-11.0) Red Blood Count 4.69 x10^6/uL (4.30-5.70) 4.63 x10^6/uL (4.30-5.70) Hemoglobin 12.1 g/dL (13.0-17.5) 11.9 g/dL (13.0-17.5) Hematocrit 38.0 % (39.0-53.0) 37.2 % (39.0-53.0) Mean Corpuscular Volume 81 fL (79-100) 80 fL (79-100) Mean Corpuscular Hemoglobin 26 pg (25-35) 26 pg (25-35) Mean Corpuscular Hemoglobin Concent 32 g/dL (31-37) 32 g/dL (31-37) Red Cell Distribution Width 14.8 % (11.5-14.5) 14.7 % (11.5-14.5) Platelet Count 379 x10^3/uL (140-400) 369 x10^3/uL (140-400) Neutrophils (%) (Auto) 63 % (31-73) 64 % (31-73) Lymphocytes (%) (Auto) 25 % (24-48) 22 % (24-48) Monocytes (%) (Auto) 8 % (0-9) 7 % (0-9) Eosinophils (%) (Auto) 4 % (0-3) 6 % (0-3) Basophils (%) (Auto) 1 % (0-3) 0 % (0-3) Neutrophils # (Auto) 9.8 x10^3/uL (1.8-7.7) 8.2 x10^3/uL (1.8-7.7) Lymphocytes # (Auto) 3.9 x10^3/uL (1.0-4.8) 2.8 x10^3/uL (1.0-4.8) Monocytes # (Auto) 1.2 x10^3/uL (0.0-1.1) 0.9 x10^3/uL (0.0-1.1) Eosinophils # (Auto) 0.6 x10^3/uL (0.0-0.7) 0.7 x10^3/uL (0.0-0.7) Basophils # (Auto) 0.1 x10^3/uL (0.0-0.2) 0.1 x10^3/uL (0.0-0.2) Sodium Level 139 mmol/L (136-145) 137 mmol/L (136-145) Potassium Level 5.0 mmol/L (3.5-5.1) 4.3 mmol/L (3.5-5.1) Chloride Level 98 mmol/L (98-107) 99 mmol/L (98-107) Carbon Dioxide Level 31 mmol/L (21-32) 32 mmol/L (21-32) Anion Gap 10 (6-14) 6 (6-14) Blood Urea Nitrogen 24 mg/dL (8-26) 24 mg/dL (8-26) Creatinine 0.9 mg/dL (0.7-1.3) 0.9 mg/dL (0.7-1.3) Estimated GFR (Cockcroft-Gault) 85.0 85.0 Glucose Level 108 mg/dL (70-99) 104 mg/dL (70-99) Calcium Level 9.1 mg/dL (8.5-10.1) 9.1 mg/dL (8.5-10.1) Laboratory Tests Test 06/26/21 03:20 White Blood Count 12.7 x10^3/uL (4.0-11.0) Red Blood Count 4.63 x10^6/uL (4.30-5.70) Hemoglobin 11.9 g/dL (13.0-17.5) Hematocrit 37.2 % (39.0-53.0) Mean Corpuscular Volume 80 fL (79-100) Mean Corpuscular Hemoglobin 26 pg (25-35) Mean Corpuscular Hemoglobin Concent 32 g/dL (31-37) Red Cell Distribution Width 14.7 % (11.5-14.5) Platelet Count 369 x10^3/uL (140-400) Neutrophils (%) (Auto) 64 % (31-73) Lymphocytes (%) (Auto) 22 % (24-48) Monocytes (%) (Auto) 7 % (0-9) Eosinophils (%) (Auto) 6 % (0-3) Basophils (%) (Auto) 0 % (0-3) Neutrophils # (Auto) 8.2 x10^3/uL (1.8-7.7) Lymphocytes # (Auto) 2.8 x10^3/uL (1.0-4.8) Monocytes # (Auto) 0.9 x10^3/uL (0.0-1.1) Eosinophils # (Auto) 0.7 x10^3/uL (0.0-0.7) Basophils # (Auto) 0.1 x10^3/uL (0.0-0.2) Sodium Level 137 mmol/L (136-145) Potassium Level 4.3 mmol/L (3.5-5.1) Chloride Level 99 mmol/L (98-107) Carbon Dioxide Level 32 mmol/L (21-32) Anion Gap 6 (6-14) Blood Urea Nitrogen 24 mg/dL (8-26) Creatinine 0.9 mg/dL (0.7-1.3) Estimated GFR (Cockcroft-Gault) 85.0 Glucose Level 104 mg/dL (70-99) Calcium Level 9.1 mg/dL (8.5-10.1) Medications Active Scripts Medications Dose Route/Sig Max Daily Dose Days Date Category Hydrocodone-Apap 5-325 (Hydrocodone Bit/Acetaminophen) 1 Tab Tablet 1 Tab PO PRN Q6HRS PRN 06/19/21 Reported Tizanidine Hcl 4 Mg Tablet 2 Mg PO TID PRN 06/19/21 Reported Aspir 81 (Aspirin) 81 Mg Tablet.dr 81 Mg PO DAILY 11/06/13 Reported Lisinopril 10 Mg Tablet 10 Mg PO DAILY 11/06/13 Reported Onglyza (Saxagliptin Hcl) 5 Mg Tablet 5 Mg PO DAILY 11/06/13 Reported Metformin Hcl 500 Mg Tablet 500 Mg PO DAILY 11/06/13 Reported Levothyroxine Sodium 112 Mcg Tablet 112 Mcg PO DAILYAC 11/06/13 Reported Toprol Xl (Metoprolol Succinate) 50 Mg Tab.er.24h 50 Mg PO DAILY 11/06/13 Reported Simvastatin 20 Mg Tablet 20 Mg PO DAILY 11/06/13 Reported Comments 06/23 cxr reviewed 1. Stable small right pneumothorax with a chest tube in place. 2. Multiple blebs in the right apex. Diffuse interstitial lung disease. cxr 06/22, reviewed 1. Trace right pneumothorax is stable with stable position of right pigtail catheter. 2. Changes of chronic interstitial disease likely from fibrosis, grossly stable including the more patchy appearance left lower lung. Impression . IMPRESSION: 1. Rblrz-[id number] respiratory failure, multifactorial. 2. Spontaneous pneumothorax in a patient with a history of COVID with severe emphysema and previous scans revealing pneumatoceles. 3. COVID-19 viral pneumonia, hospitalized for a prolonged period of time, he was at [facility], for quite some time. He was discharged home back in 06/2020. 4. History of right-sided cavitary lesion treated for lung abscess, with Augmentin for approximately 2-[address] chest revealing resolution. 5. Type 2 diabetes. 6. Mild narrowing of the upper trachea from previous tracheotomy. 7. 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 8. T12 mass, status post biopsy. Plan . 06/25 O2 titration as able chest tube with +air leak, continues on suction - await full pathology report neurosurgery no planning for surgery at this point Updated 06/24 01 titration Chest x-ray reviewed b lat infilt trace apical ptx + air leak on chest tube cont chest tube suction -20 Thoracic MRI with lytic lesion with an associated soft tissue mass along the right aspect of the T12 vertebral body most likely reflecting metastatic disease. neurosurgery does not see compromise of the canal or spinal cord. The tumor involves the right side of T12 vertebral body. neurosurgery does not feel surgery is indicated Await pathology discussed w pt HANNAH Palmer MD Jun 26, 2021 10:32
[2021-06-26 10:49] VITALS: BP 122/69
--- NOTE | 2021-06-26 12:21 | PDOC ---
Infectious Disease Note Subjective: Subjective Patient without complaints Feels better Denies any fever, nausea, vomiting, diarrhea Vital Signs: Vital Signs Vital Signs Date Time Temp Pulse Resp B/P (MAP) Pulse Ox O2 Delivery O2 Flow Rate FiO2 06/26/21 10:49 97.7 65 20 122/69 (86) 96 Nasal Cannula 3.0 97.7 Physical Exam: PHYSICAL EXAM GENERAL: Alert and oriented gentleman, not in distress. HEENT no icterus,no oral lesions NECK: Supple, LUNGS: Clear. Chestwall Right-sided chest tube is in place. HEART: S1, S2, regular. ABDOMEN: Soft, nontender, no organomegaly. EXTREMITIES: No edema, cyanosis. SKIN: No generalized rash [employer] alert oriented x3 gross nonfocal Psychiatric calm cooperative Medications: Inpatient Meds: Medications reviewed. Labs: Lab Laboratory Tests Test 06/26/21 03:20 White Blood Count 12.7 x10^3/uL (4.0-11.0) Red Blood Count 4.63 x10^6/uL (4.30-5.70) Hemoglobin 11.9 g/dL (13.0-17.5) Hematocrit 37.2 % (39.0-53.0) Mean Corpuscular Volume 80 fL (79-100) Mean Corpuscular Hemoglobin 26 pg (25-35) Mean Corpuscular Hemoglobin Concent 32 g/dL (31-37) Red Cell Distribution Width 14.7 % (11.5-14.5) Platelet Count 369 x10^3/uL (140-400) Neutrophils (%) (Auto) 64 % (31-73) Lymphocytes (%) (Auto) 22 % (24-48) Monocytes (%) (Auto) 7 % (0-9) Eosinophils (%) (Auto) 6 % (0-3) Basophils (%) (Auto) 0 % (0-3) Neutrophils # (Auto) 8.2 x10^3/uL (1.8-7.7) Lymphocytes # (Auto) 2.8 x10^3/uL (1.0-4.8) Monocytes # (Auto) 0.9 x10^3/uL (0.0-1.1) Eosinophils # (Auto) 0.7 x10^3/uL (0.0-0.7) Basophils # (Auto) 0.1 x10^3/uL (0.0-0.2) Sodium Level 137 mmol/L (136-145) Potassium Level 4.3 mmol/L (3.5-5.1) Chloride Level 99 mmol/L (98-107) Carbon Dioxide Level 32 mmol/L (21-32) Anion Gap 6 (6-14) Blood Urea Nitrogen 24 mg/dL (8-26) Creatinine 0.9 mg/dL (0.7-1.3) Estimated GFR (Cockcroft-Gault) 85.0 Glucose Level 104 mg/dL (70-99) Calcium Level 9.1 mg/dL (8.5-10.1) Micro Biospy POORLY DIFFERENTIATED MALIGNANT NEOPLASM WITH SARCOMATOID FEATURES, FAVOR POORLY DIFFERENTIATED NON-SMALL CELL CARCINOMA WITH SARCOMATOID FEATURES. SEE COMMENT. Objective: Assessment: 1. Leukocytosis, likely reactive. 2. T12 vertebral body mass. Biopsies was done. Cultures are so far negative. Pathology revealed malignancy 3. Right upper lobe cavitary lesion. Prior bronchoscopy cultures are negative. Suspected malignancy. 4. Diabetes. 5. Cardiomyopathy. Plan: Plan of Care Continue observation without any antibiotics Oncology consulted Pulm team following D/W JEANMARIE ALCALA MD Jun 26, 2021 12:21
--- NOTE | 2021-06-26 12:37 | PDOC2 ---
CONSULT Date of Consult Date of Consult DATE: 06/26/21 TIME: 12:22 Reason for Consult Reason for Consult: Paravertebral mass Referring Physician Referring Physician: Dr. Whitlock Identification/Chief Complaint Chief Complaint Back pain and pneumothorax Source Source: Chart review, Patient History of Present Illness Reason for Visit: Weston Lerma is a 66-year-old male with history of severe respiratory failure due to COVID-19 who is known to me from a recent office visit. He was reporting low back pain for the past [address] Whitlock for further evaluation. He received a CT which showed a paravertebral mass around the T12 vertebral body. Additional evaluation with a biopsy was recommended. He developed pneumothorax following the biopsy. He was admitted for further management and pulmonology is following. Chest tube has been placed. He is also received an MRI of the thoracic spine which showed no evidence of central canal involvement. Right upper lobe mass was noted, and this was further investigated with a CT. CT chest on 06/25/2021 showed right superior medial thorax pleural-based mass with associated thick-walled cavitary component and destructive changes involving the overlying posterior medial right fifth rib measuring approximately 6.0 cm in maximum dimension. 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 Current Medications Current Medications Current Medications Lidocaine HCl (Buffered Lidocaine 1%) 3 ml STK-MED ONCE .ROUTE ; Start 06/19/21 at 09:07; Stop 06/19/21 at 09:07; Status DC Midazolam HCl (Versed) 5 mg STK-MED ONCE .ROUTE ; Start 06/19/21 at 09:14; Stop 06/19/21 at 09:15; Status DC Fentanyl Citrate (Fentanyl 5ml Vial) 250 mcg STK-MED ONCE .ROUTE ; Start 06/19/21 at 09:15; Stop 06/19/21 at 09:15; Status DC Flumazenil (Romazicon) 0.5 mg STK-MED ONCE IV ; Start 06/19/21 at 09:15; Stop 06/19/21 at 09:15; Status DC Naloxone HCl (Narcan) 0.4 mg STK-MED ONCE .ROUTE ; Start 06/19/21 at 09:15; Stop 06/19/21 at 09:15; Status DC Lidocaine HCl (Buffered Lidocaine 1%) 3 ml 1X ONCE IJ Last administered on 06/19/21at 09:32; Start 06/19/21 at 09:30; Stop 06/19/21 at 09:31; Status DC Midazolam HCl (Versed) 5 mg 1X ONCE IV Last administered on 06/19/21at 09:30; Start 06/19/21 at 09:30; Stop 06/19/21 at 09:31; Status DC Fentanyl Citrate (Fentanyl 5ml Vial) 250 mcg 1X ONCE IV Last administered on 06/19/21at 09:30; Start 06/19/21 at 09:30; Stop 06/19/21 at 09:31; Status DC Oxycodone/ Acetaminophen (Percocet 5/325) 1 tab PRN Q4HRS PRN PO MODERATE- SEVERE PAIN Last administered on 06/21/21at 06:02; Start 06/19/21 at 10:15; Stop 06/21/21 at 07:55; Status DC Aspirin (Ecotrin) 81 mg DAILY PO Last administered on 06/26/21at 08:22; Start 06/19/21 at 11:00 Acetaminophen/ Hydrocodone Bitart (Lortab 5/325) 1 tab PRN Q6HRS PRN PO PAIN Last administered on 06/19/21at 16:10; Start 06/19/21 at 10:15; Stop 06/19/21 at 16:39; Status DC Levothyroxine Sodium (Synthroid) 112 mcg DAILYAC PO Last administered on 06/26/21at 08:22; Start 06/20/21 at 07:30 Lisinopril (Prinivil) 10 mg DAILY PO ; Start 06/19/21 at 11:00; Stop 06/23/21 at 10:35; Status DC Simvastatin (Zocor) 20 mg DAILY PO Last administered on 06/26/21at 08:22; Start 06/19/21 at 11:00 Tizanidine HCl (Zanaflex) 2 mg PRN TID PRN PO MUSCLE SPASMS; Start 06/19/21 at 10:15 Metoprolol Succinate (Toprol Xl) 50 mg DAILY PO Last administered on 06/24/21at 08:09; Start 06/19/21 at 11:00; Stop 06/25/21 at 08:54; Status DC Linagliptin (Tradjenta) 5 mg DAILY PO Last administered on 06/26/21at 08:22; Start 06/19/21 at 11:00 Albuterol Sulfate (Ventolin Neb Soln) 3 mg PRN Q6HRS PRN NEB SHORTNESS OF BREATH; Start 06/19/21 at 15:15 Acetaminophen/ Hydrocodone Bitart (Lortab 5/325) 1 tab PRN Q4HRS PRN PO MILD PAIN 1-3 Last administered on 06/20/21at 04:58; Start 06/19/21 at 16:45 Oxycodone/ Acetaminophen (Percocet 7.5/ 325) 1 tab PRN Q4HRS PRN PO MODERATE TO SEVERE PAIN 4-10 Last administered on 06/26/21at 08:22; Start 06/21/21 at 08:00 Gadoterate Meglumine (Clariscan) 14 ml 1X ONCE IVP Last administered on 06/22/21at 15:50; Start 06/22/21 at 14:45; Stop 06/22/21 at 14:51; Status DC Enoxaparin Sodium (Lovenox 40mg Syringe) 40 mg Q24H SQ Last administered on 06/23/21at 08:55; Start 06/23/21 at 09:00; Stop 06/24/21 at 06:34; Status DC Lisinopril (Prinivil) 5 mg DAILY PO Last administered on 06/24/21at 08:10; Start 06/24/21 at 09:00; Stop 06/25/21 at 08:54; Status DC Polyethylene Glycol (miraLAX PACKET) 17 gm DAILY PO Last administered on 06/26/21at 08:21; Start 06/24/21 at 10:00 Senna/Docusate Sodium (Senna Plus) 2 tab [id number] PRN PO CONSTIPATION Last administered on 06/24/21at 12:16; Start 06/24/21 at 10:00 Iohexol (Omnipaque 300 Mg/ml) 75 ml 1X ONCE IV Last administered on 06/25/21at 10:54; Start 06/25/21 at 10:30; Stop 06/25/21 at 10:31; Status DC Info (CONTRAST GIVEN -- Rx MONITORING) 1 each PRN DAILY PRN MC SEE COMMENTS; Start 06/25/21 at 10:30; Stop 06/27/21 at 10:29 Active Scripts Active Reported Levothyroxine Sodium 200 Mcg Tablet 1 Tab PO DAILY Metoprolol Succinate ( Xl ) (Metoprolol Succinate) 25 Mg Tab.er.24h 1 Tab PO DAILY Hydrocodone-Apap 5-325 (Hydrocodone Bit/Acetaminophen) 1 Tab Tablet 1 Tab PO PRN Q6HRS PRN Tizanidine Hcl 4 Mg Tablet 2 Mg PO TID PRN Aspir 81 (Aspirin) 81 Mg Tablet.dr 81 Mg PO DAILY Onglyza (Saxagliptin Hcl) 5 Mg Tablet 5 Mg PO DAILY Metformin Hcl 500 Mg Tablet 500 Mg PO DAILY Simvastatin 20 Mg Tablet 20 Mg PO DAILY Allergies Allergies: Coded Allergies: No Known Drug Allergies (Unverified , 02/06/21) ROS Review of System Negative unless stated otherwise in interval history Physical Exam General: Alert, Oriented X3 HEENT: Atraumatic Lungs: Clear to auscultation Heart: Regular rate, Normal S1 Abdomen: Normal bowel sounds, Soft Skin: No breakdown Neuro: Normal gait MUSCULOSKELETAL: No swelling Vitals VITALS Vital Signs Date Time Temp Pulse Resp B/P (MAP) Pulse Ox O2 Delivery O2 Flow Rate FiO2 06/26/21 10:49 97.7 65 20 122/69 (86) 96 Nasal Cannula 3.0 97.7 Labs Labs Laboratory Tests Test 06/24/21 20:15 06/25/21 06:25 06/26/21 03:20 Glucose (Fingerstick) 128 mg/dL (70-99) White Blood Count 15.6 x10^3/uL (4.0-11.0) 12.7 x10^3/uL (4.0-11.0) Red Blood Count 4.69 x10^6/uL (4.30-5.70) 4.63 x10^6/uL (4.30-5.70) Hemoglobin 12.1 g/dL (13.0-17.5) 11.9 g/dL (13.0-17.5) Hematocrit 38.0 % (39.0-53.0) 37.2 % (39.0-53.0) Mean Corpuscular Volume 81 fL (79-100) 80 fL (79-100) Mean Corpuscular Hemoglobin 26 pg (25-35) 26 pg (25-35) Mean Corpuscular Hemoglobin Concent 32 g/dL (31-37) 32 g/dL (31-37) Red Cell Distribution Width 14.8 % (11.5-14.5) 14.7 % (11.5-14.5) Platelet Count 379 x10^3/uL (140-400) 369 x10^3/uL (140-400) Neutrophils (%) (Auto) 63 % (31-73) 64 % (31-73) Lymphocytes (%) (Auto) 25 % (24-48) 22 % (24-48) Monocytes (%) (Auto) 8 % (0-9) 7 % (0-9) Eosinophils (%) (Auto) 4 % (0-3) 6 % (0-3) Basophils (%) (Auto) 1 % (0-3) 0 % (0-3) Neutrophils # (Auto) 9.8 x10^3/uL (1.8-7.7) 8.2 x10^3/uL (1.8-7.7) Lymphocytes # (Auto) 3.9 x10^3/uL (1.0-4.8) 2.8 x10^3/uL (1.0-4.8) Monocytes # (Auto) 1.2 x10^3/uL (0.0-1.1) 0.9 x10^3/uL (0.0-1.1) Eosinophils # (Auto) 0.6 x10^3/uL (0.0-0.7) 0.7 x10^3/uL (0.0-0.7) Basophils # (Auto) 0.1 x10^3/uL (0.0-0.2) 0.1 x10^3/uL (0.0-0.2) Sodium Level 139 mmol/L (136-145) 137 mmol/L (136-145) Potassium Level 5.0 mmol/L (3.5-5.1) 4.3 mmol/L (3.5-5.1) Chloride Level 98 mmol/L (98-107) 99 mmol/L (98-107) Carbon Dioxide Level 31 mmol/L (21-32) 32 mmol/L (21-32) Anion Gap 10 (6-14) 6 (6-14) Blood Urea Nitrogen 24 mg/dL (8-26) 24 mg/dL (8-26) Creatinine 0.9 mg/dL (0.7-1.3) 0.9 mg/dL (0.7-1.3) Estimated GFR (Cockcroft-Gault) 85.0 85.0 Glucose Level 108 mg/dL (70-99) 104 mg/dL (70-99) Calcium Level 9.1 mg/dL (8.5-10.1) 9.1 mg/dL (8.5-10.1) Laboratory Tests Test 06/26/21 03:20 White Blood Count 12.7 x10^3/uL (4.0-11.0) Red Blood Count 4.63 x10^6/uL (4.30-5.70) Hemoglobin 11.9 g/dL (13.0-17.5) Hematocrit 37.2 % (39.0-53.0) Mean Corpuscular Volume 80 fL (79-100) Mean Corpuscular Hemoglobin 26 pg (25-35) Mean Corpuscular Hemoglobin Concent 32 g/dL (31-37) Red Cell Distribution Width 14.7 % (11.5-14.5) Platelet Count 369 x10^3/uL (140-400) Neutrophils (%) (Auto) 64 % (31-73) Lymphocytes (%) (Auto) 22 % (24-48) Monocytes (%) (Auto) 7 % (0-9) Eosinophils (%) (Auto) 6 % (0-3) Basophils (%) (Auto) 0 % (0-3) Neutrophils # (Auto) 8.2 x10^3/uL (1.8-7.7) Lymphocytes # (Auto) 2.8 x10^3/uL (1.0-4.8) Monocytes # (Auto) 0.9 x10^3/uL (0.0-1.1) Eosinophils # (Auto) 0.7 x10^3/uL (0.0-0.7) Basophils # (Auto) 0.1 x10^3/uL (0.0-0.2) Sodium Level 137 mmol/L (136-145) Potassium Level 4.3 mmol/L (3.5-5.1) Chloride Level 99 mmol/L (98-107) Carbon Dioxide Level 32 mmol/L (21-32) Anion Gap 6 (6-14) Blood Urea Nitrogen 24 mg/dL (8-26) Creatinine 0.9 mg/dL (0.7-1.3) Estimated GFR (Cockcroft-Gault) 85.0 Glucose Level 104 mg/dL (70-99) Calcium Level 9.1 mg/dL (8.5-10.1) Assessment/Plan Assessment/Plan Assessment: Lung adenocarcinoma with sarcomatoid features, [place] NX M1 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 This shows a right upper lobe cavitary mass, consistent with pathology findings on bone biopsy -We discussed the management of stage IV lung adenocarcinoma. Discussed that the goal of treatment is palliation of disease related symptoms and prolonging life -Plan to request PD-L1 assessment and testing for log driver mutation to assist with selection of treatment -Recommend radiation oncology consultation for consideration of palliative radiotherapy -Noted neurosurgery recommendations for observation and supportive care and no surgery -Reviewed results of previously obtained work-up including SPEP, FLC, CEA, CA 19-9. These were unremarkable -Continue management of chest tube per pulmonology service -Rest per Dr. Chinyere Hammer MD Medical Oncology/Hematology Ph: [phone] LAYO HAMMER MD Jun 26, 2021 12:37
--- NOTE | 2021-06-26 13:18 | NUR ---
SW following. Discussed with RN, oncology following. Planning outpatient PET scan. Chest tube remains in place. Pt will discharge home when medically stable. SW will continue to follow.
[2021-06-26 14:40] VITALS: BP 125/62
[2021-06-26 19:20] VITALS: BP 135/78
[2021-06-26 23:10] VITALS: BP 139/68
[2021-06-27] MEDS: oxyCODONE/APAP 7.5/325 1 TAB TABLET PO PRN ×6 (01:19→21:33)
[2021-06-27 03:09] VITALS: BP 122/58
[2021-06-27 07:00] VITALS: BP 134/66
[2021-06-27] MEDS: LEVOTHYROXINE 112 MCG TABLET PO SCH (07:37)
--- NOTE | 2021-06-27 08:26 | PDOC ---
PULMONARY PROGRESS NOTES DATE: 06/27/21 TIME: 08:20 Subjective Patient is resting comfortably on 3 L nasal cannula, reports nonproductive cough, denies shortness of breath Chest tube remains in place, positive leak, no subcutaneous air Afebrile, no overnight concerns Vitals Vital Signs Date Time Temp Pulse Resp B/P (MAP) Pulse Ox O2 Delivery O2 Flow Rate FiO2 06/27/21 07:00 98.0 64 20 134/66 (88) 97 Nasal Cannula 3.0 98.0 ROS: No Nausea, No Chest Pain, No Abdominal Pain, No Increase Cough General: Alert, Oriented X4 HEENT: Other (nc at perrl ) Lungs: Clear, Other (right chest tube ) Cardiovascular: S1, S2 Abdomen: Soft, Non-tender Neuro Exam: Alert Extremities: No Edema Skin: Warm Labs Laboratory Tests Test 06/26/21 03:20 White Blood Count 12.7 x10^3/uL (4.0-11.0) Red Blood Count 4.63 x10^6/uL (4.30-5.70) Hemoglobin 11.9 g/dL (13.0-17.5) Hematocrit 37.2 % (39.0-53.0) Mean Corpuscular Volume 80 fL (79-100) Mean Corpuscular Hemoglobin 26 pg (25-35) Mean Corpuscular Hemoglobin Concent 32 g/dL (31-37) Red Cell Distribution Width 14.7 % (11.5-14.5) Platelet Count 369 x10^3/uL (140-400) Neutrophils (%) (Auto) 64 % (31-73) Lymphocytes (%) (Auto) 22 % (24-48) Monocytes (%) (Auto) 7 % (0-9) Eosinophils (%) (Auto) 6 % (0-3) Basophils (%) (Auto) 0 % (0-3) Neutrophils # (Auto) 8.2 x10^3/uL (1.8-7.7) Lymphocytes # (Auto) 2.8 x10^3/uL (1.0-4.8) Monocytes # (Auto) 0.9 x10^3/uL (0.0-1.1) Eosinophils # (Auto) 0.7 x10^3/uL (0.0-0.7) Basophils # (Auto) 0.1 x10^3/uL (0.0-0.2) Sodium Level 137 mmol/L (136-145) Potassium Level 4.3 mmol/L (3.5-5.1) Chloride Level 99 mmol/L (98-107) Carbon Dioxide Level 32 mmol/L (21-32) Anion Gap 6 (6-14) Blood Urea Nitrogen 24 mg/dL (8-26) Creatinine 0.9 mg/dL (0.7-1.3) Estimated GFR (Cockcroft-Gault) 85.0 Glucose Level 104 mg/dL (70-99) Calcium Level 9.1 mg/dL (8.5-10.1) Medications Active Scripts Medications Dose Route/Sig Max Daily Dose Days Date Category Hydrocodone-Apap 5-325 (Hydrocodone Bit/Acetaminophen) 1 Tab Tablet 1 Tab PO PRN Q6HRS PRN 06/19/21 Reported Tizanidine Hcl 4 Mg Tablet 2 Mg PO TID PRN 06/19/21 Reported Aspir 81 (Aspirin) 81 Mg Tablet.dr 81 Mg PO DAILY 11/06/13 Reported Lisinopril 10 Mg Tablet 10 Mg PO DAILY 11/06/13 Reported Onglyza (Saxagliptin Hcl) 5 Mg Tablet 5 Mg PO DAILY 11/06/13 Reported Metformin Hcl 500 Mg Tablet 500 Mg PO DAILY 11/06/13 Reported Levothyroxine Sodium 112 Mcg Tablet 112 Mcg PO DAILYAC 11/06/13 Reported Toprol Xl (Metoprolol Succinate) 50 Mg Tab.er.24h 50 Mg PO DAILY 11/06/13 Reported Simvastatin 20 Mg Tablet 20 Mg PO DAILY 11/06/13 Reported Comments 06/25/21 CT CHEST IMPRESSION: 1. Right superior medial thorax pleural-based mass with associated thick-walled cavitary component and destructive changes involving the overlying posterior medial right fifth rib measuring approximately 6.0 cm in maximum dimension. The size of this lesion and associated bony destruction has increased compared to the study performed 04/05/2021. Correlate with pathology findings from the biopsy performed 06/19/2021. 2. Destructive lytic lesion involving T12 with extension to the central canal and overlying retrocrural space, stable to slightly increased compared to the study performed 06/08/2021. 3. Small moderate right pneumothorax. There is a anterior right pleural drainage catheter in expected position. 4. Severe emphysema with superimposed pulmonary fibrosis and multifocal pleural parenchymal scarring. 5. Stable prominent right paratracheal lymph node. This is indeterminate and may be reactive in etiology. Impression . IMPRESSION: 1. [id number] respiratory failure, multifactorial.--improving 2. Spontaneous pneumothorax in a patient with a history of COVID with severe emphysema and previous scans revealing pneumatoceles. 3. COVID-19 viral pneumonia, hospitalized for a prolonged period of time, he was at [facility], for quite some time. He was discharged home back in 06/2020. 4. History of right-sided cavitary lesion treated for lung abscess, with Augmentin for approximately 2-[address] chest revealing resolution. 5. Type 2 diabetes. 6. Mild narrowing of the upper trachea from previous tracheotomy. 7. 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 8. T12 mass, status post biopsy.--oncology following, suspect stage IV primary lung cancer Repeat CT chest IMPRESSION: 1. Right superior medial thorax pleural-based mass with associated thick-walled cavitary component and destructive changes involving the overlying posterior medial right fifth rib measuring approximately 6.0 cm in maximum dimension. The size of this lesion and associated bony destruction has increased compared to the study performed 04/05/2021. Correlate with pathology findings from the biopsy performed 06/19/2021. 2. Destructive lytic lesion involving T12 with extension to the central canal and overlying retrocrural space, stable to slightly increased compared to the study performed 06/08/2021. 3. Small moderate right pneumothorax. There is a anterior right pleural drainage catheter in expected position. 4. Severe emphysema with superimposed pulmonary fibrosis and multifocal pleural parenchymal scarring. 5. Stable prominent right paratracheal lymph node. This is indeterminate and may be reactive in etiology. Plan . Updated 06/27/2021 No air leak seen, obtain chest x-ray, if lung is fully up, will discontinue wall suction Continue supplemental oxygen to keep oxygen saturations greater than 92% Bronchodilators as needed Pathology:Lung adenocarcinoma with sarcomatoid features, TX NX M1, consult radia tion oncology Follow oncology recommendations--outpatient MRI and PET scan for staging Continue chest tube -20 suction Follow infectious disease recommendations, remains off antibiotics No plans for surgery at this point Discussed with RN 06/25 O2 titration as able chest tube with +air leak, continues on suction - await full pathology report neurosurgery no planning for surgery at this point Updated 06/24 02 titration Chest x-ray reviewed b lat infilt trace apical ptx + air leak on chest tube cont chest tube suction -20 Thoracic MRI with lytic lesion with an associated soft tissue mass along the right aspect of the T12 vertebral body most likely reflecting metastatic disease. neurosurgery does not see compromise of the canal or spinal cord. The tumor involves the right side of T12 vertebral body. neurosurgery does not feel surgery is indicated Await pathology discussed w pt HANNAH Palmer MD Jun 27, 2021 08:26
[2021-06-27] MEDS: LINAGLIPTIN 5 MG TABLET PO SCH (09:11)
[2021-06-27] MEDS: SIMVASTATIN 20 MG TABLET PO SCH (09:11)
[2021-06-27] MEDS: ASPIRIN ENTERIC COATED 81 MG TABLET.DR. PO SCH (09:11)
[2021-06-27] MEDS: POLYETHYLENE GLYCOL 3350 17 GM PACKET. PO SCH (09:11)
--- NOTE | 2021-06-27 09:18 | PDOC ---
PROGRESS NOTES Date of Service: DATE: 06/27/21 TIME: 09:18 Subjective Subjective pt want to know the path Objective Objective Vital Signs Date Time Temp Pulse Resp B/P (MAP) Pulse Ox O2 Delivery O2 Flow Rate FiO2 06/27/21 09:11 Nasal Cannula 3.0 06/27/21 07:00 98.0 64 20 134/66 (88) 97 98.0 Intake and Output 06/27/21 07:00 Intake Total 930 ml Output Total 850 ml Balance 80 ml Intake Oral 930 ml Output Urine Total 850 ml Physical Exam Abdomen: Normal bowel sounds, Soft Heart: Regular rate, Normal S1 Extremities: No clubbing General: Alert, Oriented X3 HEENT: Atraumatic Lungs: Clear to auscultation MUSCULOSKELETAL: No swelling Neck: No JVD Neuro: Normal gait Psych/Mental Status: Mental status NL Skin: No breakdown COMMENT rt chest pleuravac Assessment Assessment IMPRESSION: 1. Rznso-ao-ueyjjdt respiratory failure, multifactorial. 2. Spontaneous pneumothorax in a patient with a history of COVID with severe emphysema and previous scans revealing pneumatoceles. 3. COVID-19 viral pneumonia, hospitalized for a prolonged period of time, . 4. History of right-sided cavitary lesion treated for lung abscess, with Augmentin for approximately 2-[address] chest revealing resolution. 5. Type 2 diabetes. 6. Mild narrowing of the upper trachea from previous tracheotomy. 7. 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 8. T12 mass, status post biopsy. PLAN:Looks like primary lung ca with mets to vertebra and spine . discussed with oncology. out pt MRI brain and pet scan. spoke with ed case manager ,?[facility] options neuro surgery consult appreciated Mild leukocytosis. pain control better 1. Continue chest tube placement. Chest x-ray on June 22 1. Trace right pneumothorax is stable with stable position of right pigtail catheter. 2. Changes of chronic interstitial disease likely from fibrosis, grossly stable including the more patchy appearance left lower lung. 2. Follow pathology report on T12 mass biopsy. 3. Continue oxygen supplementation. 4. Monitor blood sugars. 5. Continue home medications. Increase Percocet to 7.5/325 Q4H prn. Hyperkalemia. Potassium was 5.3. He is not on any potassium supplements. He is on lisinopril. Potassium is 4.4 on June 24, 2021. Decrease lisinopril to 5 mg daily. Patient's blood pressure is also low. T12 mass MRI of thoracic spine on June 22, 2021 1. Lytic lesion with an associated soft tissue mass along the right aspect of t he T12 vertebral body most likely reflecting metastatic disease. There is mild expansion of the right posterior aspect of the vertebral body with mild on the right lateral recess. 2. 5 cm right upper lobe thick-walled cavitary lesion concerning for malignancy. Another pleural metastasis is suspected in the right costophrenic angle. Patient was seen by Dr. Deshpande who feels that this is likely metastatic, there is no compromise of the canal or the spinal cord and does not require any surgery at this time. 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 This has been discussed with the patient. Consult Dr. Miller. Leukocytosis worse. This may be multifactorial. Consult Dr. Darnell Sánchez for infectious disease evaluation and management. Patient states that he has not been taking metoprolol and lisinopril for quite some time. Lisinopril used to cause cough. Discontinue lisinopril and metoprolol. Change ADA diet to regular diet because of his cancer. Comment Review of Relevant I have reviewed the following items del (where applicable) has been applied. Labs Microbiology 06/19/21 AFB Specimen Processing Tissue - Final, Resulted 06/19/21 Acid Fast Bacilli Culture, Resulted Pending 06/19/21 Gram Stain - Final, Resulted 06/19/21 Fungal Culture, Resulted Pending 06/19/21 Fungal Culture Result 1, Resulted Pending Vitals/I & O Vital Sign - Last 24 Hours 06/26/21 06/26/21 06/26/21 06/26/21 10:49 14:40 19:20 20:26 Temp 97.7 98.1 98.0 97.7 98.1 98.0 Pulse 65 64 79 Resp 20 18 18 B/P (MAP) 122/69 (86) 125/62 (83) 135/78 (97) Pulse Ox 96 95 97 O2 Delivery Nasal Cannula Nasal Cannula Nasal Cannula Nasal Cannula O2 Flow Rate 3.0 3.0 3.0 3.0 2/22/22 2/22/22 2/22/22 2/23/22 21:16 22:59 23:10 01:19 Temp 98.7 98.7 Pulse 67 Resp 16 18 16 B/P (MAP) 139/68 (91) Pulse Ox 97 97 94 94 O2 Delivery Nasal Cannula Nasal Cannula Nasal Cannula Nasal Cannula O2 Flow Rate 3.0 3.0 3.0 3.0 06/27/21 06/27/21 06/27/21 06/27/21 03:09 03:23 05:10 06:19 Temp 98.0 98.0 Pulse 58 Resp 20 16 16 16 B/P (MAP) 122/58 (79) Pulse Ox 95 95 95 O2 Delivery Nasal Cannula Nasal Cannula Room Air Nasal Cannula O2 Flow Rate 3.0 3.0 3.0 06/27/21 06/27/21 07:00 09:11 Temp 98.0 98.0 Pulse 64 Resp 20 B/P (MAP) 134/66 (88) Pulse Ox 97 O2 Delivery Nasal Cannula Nasal Cannula O2 Flow Rate 3.0 3.0 Intake and Output 06/26/21 06/26/21 06/27/21 15:00 23:00 07:00 Intake Total 150 ml 240 ml 540 ml Output Total 300 ml 550 ml Balance 150 ml -60 ml -10 ml Justifications for Admission Other Justification ROSE OCONNELL MD Jun 27, 2021 09:18
[2021-06-27 11:00] VITALS: BP 119/69
--- NOTE | 2021-06-27 14:37 | PDOC ---
Infectious Disease Note Subjective: Subjective Patient without complaints Feels better Vital Signs: Vital Signs Vital Signs Date Time Temp Pulse Resp B/P (MAP) Pulse Ox O2 Delivery O2 Flow Rate FiO2 06/27/21 14:03 Nasal Cannula 3.0 06/27/21 11:00 98.4 63 20 119/69 (86) 93 98.4 Physical Exam: PHYSICAL EXAM GENERAL: Alert and oriented gentleman, not in distress. HEENT no icterus,no oral lesions NECK: Supple, LUNGS: Clear. Chestwall Right-sided chest tube is in place. HEART: S1, S2, regular. ABDOMEN: Soft, nontender, no organomegaly. EXTREMITIES: No edema, cyanosis. SKIN: No generalized rash [employer] alert oriented x3 gross nonfocal Psychiatric calm cooperative Medications: Inpatient Meds: Medications reviewed. Labs: Micro Biospy POORLY DIFFERENTIATED MALIGNANT NEOPLASM WITH SARCOMATOID FEATURES, FAVOR POORLY DIFFERENTIATED NON-SMALL CELL CARCINOMA WITH SARCOMATOID FEATURES. SEE COMMENT. Objective: Assessment: 1. Leukocytosis, likely reactive.Improved, cultures negative from 06/19 2. T12 vertebral body mass. S/P biopsy,. Suspect Stage 4 Lung CA 3. History of RT cavitary lesion, treated for lung abscess, Prior bronchoscopy cultures are negative. Previous lung abscess treated with Augmentin 4. Diabetes. 5. Cardiomyopathy. 6. Pneumothorax S/P CTS 7. History of COVID-19 Plan: Plan of Care Continue off antibiotics Cult from 06/19 negative so far including afb Oncology consulted,input noted Pulm team following Neurosurgery evaluated pt Will sign off. Call with any questions JEANMARIE POLANCO MD Jun 27, 2021 14:37
--- NOTE | 2021-06-27 14:46 | RAD ---
EXAM: XR CHEST 1V 06/27/2021 2:02 PM CLINICAL INDICATION: Pneumothorax COMPARISON: Chest radiograph 06/25/2021 TECHNIQUE: AP upright view of the chest FINDINGS: A right pigtail pleural catheter is unchanged. The small right lateral pneumothorax has de creased but persists. There are unchanged bilateral interstitial opacities greatest in the lateral le ft lung base. No pleural effusion. The heart is normal in size. IMPRESSION: 1. Decreased but persistent small right lateral pneumothorax with chest tube in place. 2. Unchanged interstitial lung disease. Electronically signed by: Shikha Fernandes MD (06/27/2021 2:44 PM) [id number]
[2021-06-27 15:00] VITALS: BP 126/55
[2021-06-27 19:25] VITALS: BP 132/66
[2021-06-27 23:14] VITALS: BP 111/69
[2021-06-28] MEDS: oxyCODONE/APAP 7.5/325 1 TAB TABLET PO PRN ×6 (01:30→20:30)
[2021-06-28 03:18] VITALS: BP 112/61
[2021-06-28 07:00] VITALS: BP 119/61
[2021-06-28] MEDS: LEVOTHYROXINE 112 MCG TABLET PO SCH (08:55)
[2021-06-28] MEDS: POLYETHYLENE GLYCOL 3350 17 GM PACKET. PO SCH (08:58)
[2021-06-28] MEDS: LINAGLIPTIN 5 MG TABLET PO SCH (08:58)
[2021-06-28] MEDS: SIMVASTATIN 20 MG TABLET PO SCH (08:58)
[2021-06-28] MEDS: ASPIRIN ENTERIC COATED 81 MG TABLET.DR. PO SCH (08:58)
--- NOTE | 2021-06-28 10:15 | PDOC2 ---
CONSULT Date of Consult Date of Consult DATE: 06/28/21 TIME: 09:33 Reason for Consult Reason for Consult: Painful metastasis at T12 Referring Physician Referring Physician: Dr Kowalski; Dr Hinojosa Identification/Chief Complaint Chief Complaint Back pain Source Source: Chart review, Patient History of Present Illness Reason for Visit: Mr Zambrano is a 66 year old man who had prolonged hospitalization for Covid-19, from March 2020 to August 2020. He had a trach and PEG tube placement, with eventual decannulation. He was sent home on home oxygen. CT chest 07/24/20 showed severe interstitial lung disease. Follow up CT chest 10/30/20 was stable with diffuse interstitial lung disease. On 01/22/21 CT chest showed a thick-walled lesion in the right upper lobe measuring 4.6 cm. Bronchoscopy 02/06/21 revealed no endobronchial lesion. He was treated for empyema. Follow up CT chest 04/05/21 showed resolution of previous air-fluid level within the thick-walled cavitary/bleb lesion in the right upper lobe. He presented to his primary doctor's office with new onset back pain. CT abdomen and pelvis 06/08/21 showed 4.2 cm destructive osseous lesion to the right of T12. He was scheduled for outpatient biopsy. On 06/19/21, he presented for CT-guided biopsy of the T12 paraspinal mass. While on the table, surveillance imaging showed large right pneumothorax. He was then admitted for chest tube placement, with biopsy to be done after chest tube placement. Pathology showed poorly differentiated nonsmall cell lung carcinoma with sarcomatoid features. He is currently inpatient with chest tube in place. CT chest 06/25/21 showed 6 cm thick-walled cavitary mass in right superior thorax with right 5th rib destruction. The lytic mass at T12 extends to the central canal and retrocrural space. His back pain is better with laying on left decubitus. He has 70-pound weight loss over the last year, mainly due to Covid. He has no hemoptysis, no leg weakness. He has full control of his bowel and bladder function. Past Medical History Cardiovascular: HTN, Hyperlipidemia Pulmonary: COPD, Other (Severe lung damage from Covid-19 with multiple pneumatoceles) Infectious disease: Other (Severe lung damage from Covid-19) Endocrine: Diabetes, Hypothyroidism Past Surgical History Past Surgical History: Other (tracheostomy, G-tube) Family History Family History No cancer Social History Quit (10 years ago) ALCOHOL: none Lives: with Family Current Medications Current Medications Current Medications Lidocaine HCl (Buffered Lidocaine 1%) 3 ml STK-MED ONCE .ROUTE ; Start 06/19/21 at 09:07; Stop 06/19/21 at 09:07; Status DC Midazolam HCl (Versed) 5 mg STK-MED ONCE .ROUTE ; Start 06/19/21 at 09:14; Stop 06/19/21 at 09:15; Status DC Fentanyl Citrate (Fentanyl 5ml Vial) 250 mcg STK-MED ONCE .ROUTE ; Start 06/19/21 at 09:15; Stop 06/19/21 at 09:15; Status DC Flumazenil (Romazicon) 0.5 mg STK-MED ONCE IV ; Start 06/19/21 at 09:15; Stop 06/19/21 at 09:15; Status DC Naloxone HCl (Narcan) 0.4 mg STK-MED ONCE .ROUTE ; Start 06/19/21 at 09:15; Stop 06/19/21 at 09:15; Status DC Lidocaine HCl (Buffered Lidocaine 1%) 3 ml 1X ONCE IJ Last administered on 06/19/21at 09:32; Start 06/19/21 at 09:30; Stop 06/19/21 at 09:31; Status DC Midazolam HCl (Versed) 5 mg 1X ONCE IV Last administered on 06/19/21at 09:30; Start 06/19/21 at 09:30; Stop 06/19/21 at 09:31; Status DC Fentanyl Citrate (Fentanyl 5ml Vial) 250 mcg 1X ONCE IV Last administered on 06/19/21at 09:30; Start 06/19/21 at 09:30; Stop 06/19/21 at 09:31; Status DC Oxycodone/ Acetaminophen (Percocet 5/325) 1 tab PRN Q4HRS PRN PO MODERATE- SEVERE PAIN Last administered on 06/21/21at 06:02; Start 06/19/21 at 10:15; Stop 06/21/21 at 07:55; Status DC Aspirin (Ecotrin) 81 mg DAILY PO Last administered on 06/28/21at 08:58; Start 06/19/21 at 11:00 Acetaminophen/ Hydrocodone Bitart (Lortab 5/325) 1 tab PRN Q6HRS PRN PO PAIN Last administered on 06/19/21at 16:10; Start 06/19/21 at 10:15; Stop 06/19/21 at 16:39; Status DC Levothyroxine Sodium (Synthroid) 112 mcg DAILYAC PO Last administered on 06/28/21at 08:55; Start 06/20/21 at 07:30 Lisinopril (Prinivil) 10 mg DAILY PO ; Start 06/19/21 at 11:00; Stop 06/23/21 at 10:35; Status DC Simvastatin (Zocor) 20 mg DAILY PO Last administered on 06/28/21at 08:58; Start 06/19/21 at 11:00 Tizanidine HCl (Zanaflex) 2 mg PRN TID PRN PO MUSCLE SPASMS; Start 06/19/21 at 10:15 Metoprolol Succinate (Toprol Xl) 50 mg DAILY PO Last administered on 06/24/21at 08:09; Start 06/19/21 at 11:00; Stop 06/25/21 at 08:54; Status DC Linagliptin (Tradjenta) 5 mg DAILY PO Last administered on 06/28/21at 08:58; Start 06/19/21 at 11:00 Albuterol Sulfate (Ventolin Neb Soln) 3 mg PRN Q6HRS PRN NEB SHORTNESS OF BREATH; Start 06/19/21 at 15:15 Acetaminophen/ Hydrocodone Bitart (Lortab 5/325) 1 tab PRN Q4HRS PRN PO MILD PAIN 1-3 Last administered on 06/20/21at 04:58; Start 06/19/21 at 16:45 Oxycodone/ Acetaminophen (Percocet 7.5/ 325) 1 tab PRN Q4HRS PRN PO MODERATE TO SEVERE PAIN 4-10 Last administered on 06/28/21at 05:29; Start 06/21/21 at 08:00 Gadoterate Meglumine (Clariscan) 14 ml 1X ONCE IVP Last administered on 06/22/21at 15:50; Start 06/22/21 at 14:45; Stop 06/22/21 at 14:51; Status DC Enoxaparin Sodium (Lovenox 40mg Syringe) 40 mg Q24H SQ Last administered on 06/23/21at 08:55; Start 06/23/21 at 09:00; Stop 06/24/21 at 06:34; Status DC Lisinopril (Prinivil) 5 mg DAILY PO Last administered on 06/24/21at 08:10; Start 06/24/21 at 09:00; Stop 06/25/21 at 08:54; Status DC Polyethylene Glycol (miraLAX PACKET) 17 gm DAILY PO Last administered on 06/28/21at 08:58; Start 06/24/21 at 10:00 Senna/Docusate Sodium (Senna Plus) 2 tab [id number] PRN PO CONSTIPATION Last administered on 06/24/21at 12:16; Start 06/24/21 at 10:00 Iohexol (Omnipaque 300 Mg/ml) 75 ml 1X ONCE IV Last administered on 06/25/21at 10:54; Start 06/25/21 at 10:30; Stop 06/25/21 at 10:31; Status DC Info (CONTRAST GIVEN -- Rx MONITORING) 1 each PRN DAILY PRN MC SEE COMMENTS; Start 06/25/21 at 10:30; Stop 06/27/21 at 10:29; Status DC Active Scripts Active Reported Levothyroxine Sodium 200 Mcg Tablet 1 Tab PO DAILY Metoprolol Succinate ( Xl ) (Metoprolol Succinate) 25 Mg Tab.er.24h 1 Tab PO DAILY Hydrocodone-Apap 5-325 (Hydrocodone Bit/Acetaminophen) 1 Tab Tablet 1 Tab PO PRN Q6HRS PRN Tizanidine Hcl 4 Mg Tablet 2 Mg PO TID PRN Aspir 81 (Aspirin) 81 Mg Tablet.dr 81 Mg PO DAILY Onglyza (Saxagliptin Hcl) 5 Mg Tablet 5 Mg PO DAILY Metformin Hcl 500 Mg Tablet 500 Mg PO DAILY Simvastatin 20 Mg Tablet 20 Mg PO DAILY Allergies Allergies: Coded Allergies: No Known Drug Allergies (Unverified , 02/06/21) ROS General: YES: Other (Weight loss) Physical Exam General: Alert, Oriented X3, Cooperative HEENT: Atraumatic, PERRLA, EOMI, Mucous membr. moist/pink, Other (O2 NC in place) Lungs: Other (Poor air movement, no wheezing or crackles. Chest tube in place.) Heart: Regular rate, No murmurs Abdomen: Soft, No tenderness Extremities: No edema Skin: No rashes Neuro: Normal speech, Strength at 5/5 X4 ext, Cranial nerves 3-12 NL Psych/Mental Status: Mental status NL, Mood NL MUSCULOSKELETAL: Other (Severe point tenderness at biopsy site at T12, to the right of midline) Vitals VITALS Vital Signs Date Time Temp Pulse Resp B/P (MAP) Pulse Ox O2 Delivery O2 Flow Rate FiO2 06/28/21 07:00 98.0 61 18 119/61 (80) 98 Nasal Cannula 3.0 98.0 Assessment/Plan Assessment/Plan 66 year old male with painful metastasis to T12 from lung primary, stage M1. Plan We discussed palliative radiotherapy to the T12 mass to help with pain and prevent spinal cord compression. Radiation involves a planning CT followed by 5 daily treatments. The side effects were discussed. We discussed that the main treatment for his lung cancer would be systemic therapy, with the role of radiation limited to help with pain and prevent further function loss. He understood. He agreed to have planning CT done later today. MARY RASHID MD Jun 28, 2021 10:15
--- NOTE | 2021-06-28 10:42 | PDOC ---
PULMONARY PROGRESS NOTES DATE: 06/28/21 TIME: 10:42 Subjective Patient not more short of air patient is resting comfortably on 3 L nasal cannula, reports nonproductive cough, denies shortness of breath Chest tube remains in place, positive leak, no subcutaneous air, off wall suction since yesterday Afebrile, no overnight concerns Vitals Vital Signs Date Time Temp Pulse Resp B/P (MAP) Pulse Ox O2 Delivery O2 Flow Rate FiO2 06/28/21 10:40 98 Nasal Cannula 3.0 06/28/21 07:00 98.0 61 18 119/61 (80) 98.0 ROS: No Nausea, No Chest Pain, No Abdominal Pain, No Increase Cough General: Alert HEENT: Other (nc at perrl ) Lungs: Clear, Other (right chest tube ) Cardiovascular: S1, S2 Abdomen: Soft, Non-tender Neuro Exam: Alert Extremities: No Edema Skin: Warm Medications Active Scripts Medications Dose Route/Sig Max Daily Dose Days Date Category Hydrocodone-Apap 5-325 (Hydrocodone Bit/Acetaminophen) 1 Tab Tablet 1 Tab PO PRN Q6HRS PRN 06/19/21 Reported Tizanidine Hcl 4 Mg Tablet 2 Mg PO TID PRN 06/19/21 Reported Aspir 81 (Aspirin) 81 Mg Tablet.dr 81 Mg PO DAILY 11/06/13 Reported Lisinopril 10 Mg Tablet 10 Mg PO DAILY 11/06/13 Reported Onglyza (Saxagliptin Hcl) 5 Mg Tablet 5 Mg PO DAILY 11/06/13 Reported Metformin Hcl 500 Mg Tablet 500 Mg PO DAILY 11/06/13 Reported Levothyroxine Sodium 112 Mcg Tablet 112 Mcg PO DAILYAC 11/06/13 Reported Toprol Xl (Metoprolol Succinate) 50 Mg Tab.er.24h 50 Mg PO DAILY 11/06/13 Reported Simvastatin 20 Mg Tablet 20 Mg PO DAILY 11/06/13 Reported Comments 06/25/21 CT CHEST IMPRESSION: 1. Right superior medial thorax pleural-based mass with associated thick-walled cavitary component and destructive changes involving the overlying posterior medial right fifth rib measuring approximately 6.0 cm in maximum dimension. The size of this lesion and associated bony destruction has increased compared to the study performed 04/05/2021. Correlate with pathology findings from the biopsy performed 06/19/2021. 2. Destructive lytic lesion involving T12 with extension to the central canal and overlying retrocrural space, stable to slightly increased compared to the study performed 06/08/2021. 3. Small moderate right pneumothorax. There is a anterior right pleural drainage catheter in expected position. 4. Severe emphysema with superimposed pulmonary fibrosis and multifocal pleural parenchymal scarring. 5. Stable prominent right paratracheal lymph node. This is indeterminate and may be reactive in etiology. Impression . IMPRESSION: 1. Jttxb-[id number] respiratory failure, multifactorial.--improving 2. Spontaneous pneumothorax in a patient with a history of COVID with severe emphysema and previous scans revealing pneumatoceles. 3. COVID-19 viral pneumonia, hospitalized for a prolonged period of time, he was at [facility], for quite some time. He was discharged home back in 06/2020. 4. History of right-sided cavitary lesion treated for lung abscess, with Augmentin for approximately 2-[address] chest revealing resolution. 5. Type 2 diabetes. 6. Mild narrowing of the upper trachea from previous tracheotomy. 7. 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 8. T12 mass, status post biopsy.--oncology following, suspect stage IV primary lung cancer Repeat CT chest IMPRESSION: 1. Right superior medial thorax pleural-based mass with associated thick-walled cavitary component and destructive changes involving the overlying posterior medial right fifth rib measuring approximately 6.0 cm in maximum dimension. The size of this lesion and associated bony destruction has increased compared to the study performed 04/05/2021. Correlate with pathology findings from the biopsy performed 06/19/2021. 2. Destructive lytic lesion involving T12 with extension to the central canal and overlying retrocrural space, stable to slightly increased compared to the study performed 06/08/2021. 3. Small moderate right pneumothorax. There is a anterior right pleural drainage catheter in expected position. 4. Severe emphysema with superimposed pulmonary fibrosis and multifocal pleural parenchymal scarring. 5. Stable prominent right paratracheal lymph node. This is indeterminate and may be reactive in etiology. Plan . Updated 06/28 Off wall suction since yesterday, chest x-ray noted with no pneumo Plan to Appreciate radiation oncology inpu Continue supplemental oxygen to keep oxygen saturations greater than 92% Bronchodilators as needed Pathology:Lung adenocarcinoma with sarcomatoid features, [place] NX M1, Follow oncology recommendations--outpatient MRI and PET scan for staging Follow infectious disease recommendations, remains off antibiotics HANNAH HERNANDEZ MD Jun 28, 2021 10:42
--- NOTE | 2021-06-28 10:48 | RAD ---
Portable chest x-ray compared to similar exam dated June 272021 for pneumothorax. FINDINGS: There is a consistent small loculated superior lateral pneumothorax, grossly unchanged. Pig tail chest tube is present and appears appropriately positioned. Lung voids are reduced and there is worsening interstitial changes throughout both lungs, possibly due to progressive interstitial edema or interstitial pneumonia. Heart size within normal limits. No significant osseous abnormalities. IMPRESSION: 1. Stable small superolateral loculated pneumothorax. 2. Worsening diffuse interstitial changes concerning for progressive interstitial pneumonia and/or ed theodora. Electronically signed by: Evan Campuzano MD (06/28/2021 10:46 AM) [id number]
--- NOTE | 2021-06-28 10:50 | NUR ---
SW following. Discussed with RN, pt from home, oxygen at home. per Dr. Whitlock - anticipate discharge home tomorrow. SW will continue to follow.
[2021-06-28 11:00] VITALS: BP 114/66
[2021-06-28] MEDS: HYDROcodone/APAP 5/325MG 1 TAB TABLET PO PRN (12:07)
--- NOTE | 2021-06-28 12:11 | NUR ---
per maximo Peters to give percocet prior to PRN schedule of 4 hours to help patient tolerate procedures in radiology.
--- NOTE | 2021-06-28 12:36 | PDOC ---
PROGRESS NOTES Date of Service: DATE: 06/28/21 TIME: 12:33 Subjective Subjective no new complaints Objective Objective Vital Signs Date Time Temp Pulse Resp B/P (MAP) Pulse Ox O2 Delivery O2 Flow Rate FiO2 06/28/21 12:09 98 Nasal Cannula 3.0 06/28/21 11:00 98.2 70 18 114/66 (82) 98.2 Intake and Output 06/28/21 07:00 Intake Total 420 ml Output Total 1100 ml Balance -680 ml Intake Oral 420 ml Output Urine Total 1100 ml Physical Exam Abdomen: Soft, No tenderness Heart: Regular rate, No murmurs Extremities: No edema General: Alert, Oriented X3, Cooperative HEENT: Atraumatic, PERRLA, EOMI, Mucous membr. moist/pink, Other (O2 NC in place) Lungs: Other (Poor air movement, no wheezing or crackles. Chest tube in place.) MUSCULOSKELETAL: Other (Severe point tenderness at biopsy site at T12, to the right of midline) Neck: No JVD Neuro: Normal speech, Strength at 5/5 X4 ext, Cranial nerves 3-12 NL Psych/Mental Status: Mental status NL, Mood NL Skin: No rashes COMMENT rt chest pleuravac Assessment Assessment IMPRESSION: 1. Ivwdz-di-rpgrjad respiratory failure, multifactorial. 2. Spontaneous pneumothorax in a patient with a history of COVID with severe emphysema and previous scans revealing pneumatoceles. 3. COVID-19 viral pneumonia, hospitalized for a prolonged period of time, . 4. History of right-sided cavitary lesion treated for lung abscess, with Augmentin for approximately 2-[address] chest revealing resolution. 5. Type 2 diabetes. 6. Mild narrowing of the upper trachea from previous tracheotomy. 7. 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 8. T12 mass, status post biopsy. PLAN:clamping pleurovac today ? home tomorrow. out pt Radiaition to spine,5 treatments. Need MRI+PET scan out pt. Looks like primary lung ca with mets to vertebra and ribs . discussed with oncology. Comment Review of Relevant I have reviewed the following items del (where applicable) has been applied. Labs Microbiology 06/19/21 AFB Specimen Processing Tissue - Final, Resulted 06/19/21 Acid Fast Bacilli Culture, Resulted Pending 06/19/21 Gram Stain - Final, Resulted 06/19/21 Fungal Culture, Resulted Pending 06/19/21 Fungal Culture Result 1, Resulted Pending Vitals/I & O Vital Sign - Last 24 Hours 06/27/21 06/27/21 06/27/21 06/27/21 13:14 14:03 15:00 17:31 Temp 97.6 97.6 Pulse 66 Resp 20 B/P (MAP) 126/55 (78) Pulse Ox 94 O2 Delivery Nasal Cannula Nasal Cannula Nasal Cannula Nasal Cannula O2 Flow Rate 3.0 3.0 3.0 3.0 06/27/21 06/27/21 06/27/21 06/27/21 18:08 19:25 19:35 21:33 Temp 97.8 97.8 Pulse 63 Resp 18 20 B/P (MAP) 132/66 (88) Pulse Ox 93 O2 Delivery Nasal Cannula Nasal Cannula Nasal Cannula Nasal Cannula O2 Flow Rate 3.0 3.0 3.0 3.0 06/27/21 06/27/21 06/28/21 06/28/21 22:03 23:14 01:30 02:00 Temp 98.1 98.1 Pulse 60 Resp 20 22 20 20 B/P (MAP) 111/69 (83) Pulse Ox 98 O2 Delivery Nasal Cannula Nasal Cannula Room Air Nasal Cannula O2 Flow Rate 3.0 3.0 3.0 06/28/21 06/28/21 06/28/21 06/28/21 03:18 05:29 05:59 07:00 Temp 98.2 98.0 98.2 98.0 Pulse 61 61 Resp 18 20 20 18 B/P (MAP) 112/61 (78) 119/61 (80) Pulse Ox 98 98 O2 Delivery Nasal Cannula Nasal Cannula Nasal Cannula Nasal Cannula O2 Flow Rate 3.0 3.0 3.0 3.0 06/28/21 06/28/21 06/28/21 06/28/21 08:00 09:42 10:40 11:00 Temp 98.2 98.2 Pulse 70 Resp 18 B/P (MAP) 114/66 (82) Pulse Ox 98 98 98 O2 Delivery Nasal Cannula Nasal Cannula Nasal Cannula Nasal Cannula O2 Flow Rate 3.0 3.0 3.0 3.0 06/28/21 06/28/21 12:07 12:09 Pulse Ox 98 98 O2 Delivery Nasal Cannula Nasal Cannula O2 Flow Rate 3.0 3.0 Intake and Output 06/27/21 06/27/21 06/28/21 15:00 23:00 07:00 Intake Total 120 ml 300 ml Output Total 800 ml 300 ml Balance -680 ml 0 ml Justifications for Admission Other Justification ROSE OCONNELL MD Jun 28, 2021 12:36
[2021-06-28 15:00] VITALS: BP 93/69
[2021-06-28 19:00] VITALS: BP 116/64
[2021-06-28 23:00] VITALS: BP 130/74
[2021-06-29] MEDS: oxyCODONE/APAP 7.5/325 1 TAB TABLET PO PRN ×4 (00:30→12:46)
[2021-06-29 02:46] VITALS: BP 117/67
[2021-06-29 07:00] VITALS: BP 110/74
[2021-06-29] MEDS: LEVOTHYROXINE 112 MCG TABLET PO SCH (07:32)
[2021-06-29] MEDS: SIMVASTATIN 20 MG TABLET PO SCH (08:38)
[2021-06-29] MEDS: ASPIRIN ENTERIC COATED 81 MG TABLET.DR. PO SCH (08:38)
[2021-06-29] MEDS: POLYETHYLENE GLYCOL 3350 17 GM PACKET. PO SCH (08:38)
[2021-06-29] MEDS: LINAGLIPTIN 5 MG TABLET PO SCH (08:39)
--- NOTE | 2021-06-29 08:39 | PDOC ---
PROGRESS NOTES Date of Service DATE: 06/29/21 TIME: 08:34 Subjective Subjective Weston denies any interval complaints. We reviewed results of pathology report and CT chest. Discussed CT chest results with Dr. Kowalski Objective Objective Vital Signs Date Time Temp Pulse Resp B/P (MAP) Pulse Ox O2 Delivery O2 Flow Rate FiO2 06/29/21 07:00 97.5 65 18 110/74 (86) 97 Nasal Cannula 3.0 97.5 Intake and Output 06/29/21 07:00 Intake Total 620 ml Output Total 700 ml Balance -80 ml Intake Oral 620 ml Output Urine Total 700 ml Assessment Assessment Lung adenocarcinoma with sarcomatoid features, [place] NX M1 Back pain secondary to bone metastasis Pneumothorax History of COVID-19 Chronic respiratory failure Plan Plan of Care -Recommended and reviewed results of CT chest. This shows a right upper lobe cavitary mass, consistent with pathology findings on bone biopsy. Provided patient with copy of result -We discussed the management of stage IV lung adenocarcinoma. Discussed that the goal of treatment is palliation of disease related symptoms and prolonging life -Plan to request PD-L1 assessment and testing for non emergency services ambulance driver mutation to assist with selection of treatment as outpatient -I will send prescription for Percocet 33158 (increased dosing from 7.5) every 4 hours as needed to [facility] at [facility]. 10-day supply, 60 tablets and 0 refills -Discussed adding long-acting pain control agent if pain is not improved following palliative radiotherapy -Noted on plans for palliative radiotherapy -Noted neurosurgery recommendations for observation and supportive care and no surgery -Reviewed results of previously obtained work-up including SPEP, FLC, CEA, CA 19-9. These were unremarkable -Continue management of chest tube per pulmonology service -Rest per Dr. Chinyere Hinojosa MD Medical Oncology/Hematology Ph: [phone] Comment Review of Relevant I have reviewed the following items del (where applicable) has been applied. Labs Microbiology 06/19/21 AFB Specimen Processing Tissue - Final, Resulted 06/19/21 Acid Fast Bacilli Culture, Resulted Pending 06/19/21 Gram Stain - Final, Resulted 06/19/21 Fungal Culture, Resulted Pending 06/19/21 Fungal Culture Result 1, Resulted Pending Medications Current Medications Lidocaine HCl (Buffered Lidocaine 1%) 3 ml STK-MED ONCE .ROUTE ; Start 06/19/21 at 09:07; Stop 06/19/21 at 09:07; Status DC Midazolam HCl (Versed) 5 mg STK-MED ONCE .ROUTE ; Start 06/19/21 at 09:14; Stop 06/19/21 at 09:15; Status DC Fentanyl Citrate (Fentanyl 5ml Vial) 250 mcg STK-MED ONCE .ROUTE ; Start 06/05 09/23 at 09:15; Stop 06/19/21 at 09:15; Status DC Flumazenil (Romazicon) 0.5 mg STK-MED ONCE IV ; Start 06/19/21 at 09:15; Stop 06/19/21 at 09:15; Status DC Naloxone HCl (Narcan) 0.4 mg STK-MED ONCE .ROUTE ; Start 06/19/21 at 09:15; Stop 06/19/21 at 09:15; Status DC Lidocaine HCl (Buffered Lidocaine 1%) 3 ml 1X ONCE IJ Last administered on 06/19/21at 09:32; Start 06/19/21 at 09:30; Stop 06/19/21 at 09:31; Status DC Midazolam HCl (Versed) 5 mg 1X ONCE IV Last administered on 06/19/21at 09:30; Start 06/19/21 at 09:30; Stop 06/19/21 at 09:31; Status DC Fentanyl Citrate (Fentanyl 5ml Vial) 250 mcg 1X ONCE IV Last administered on 06/19/21at 09:30; Start 06/19/21 at 09:30; Stop 06/19/21 at 09:31; Status DC Oxycodone/ Acetaminophen (Percocet 5/325) 1 tab PRN Q4HRS PRN PO MODERATE- SEVERE PAIN Last administered on 06/21/21at 06:02; Start 06/19/21 at 10:15; Stop 06/21/21 at 07:55; Status DC Aspirin (Ecotrin) 81 mg DAILY PO Last administered on 06/28/21at 08:58; Start 06/19/21 at 11:00 Acetaminophen/ Hydrocodone Bitart (Lortab 5/325) 1 tab PRN Q6HRS PRN PO PAIN Last administered on 06/19/21at 16:10; Start 06/19/21 at 10:15; Stop 06/19/21 at 16:39; Status DC Levothyroxine Sodium (Synthroid) 112 mcg DAILYAC PO Last administered on 06/29/21at 07:32; Start 06/20/21 at 07:30 Lisinopril (Prinivil) 10 mg DAILY PO ; Start 06/19/21 at 11:00; Stop 06/23/21 at 10:35; Status DC Simvastatin (Zocor) 20 mg DAILY PO Last administered on 06/28/21at 08:58; Start 06/19/21 at 11:00 Tizanidine HCl (Zanaflex) 2 mg PRN TID PRN PO MUSCLE SPASMS; Start 06/19/21 at 10:15 Metoprolol Succinate (Toprol Xl) 50 mg DAILY PO Last administered on 06/24/21at 08:09; Start 06/19/21 at 11:00; Stop 06/25/21 at 08:54; Status DC Linagliptin (Tradjenta) 5 mg DAILY PO Last administered on 06/28/21at 08:58; Start 06/19/21 at 11:00 Albuterol Sulfate (Ventolin Neb Soln) 3 mg PRN Q6HRS PRN NEB SHORTNESS OF BREATH; Start 06/19/21 at 15:15 Acetaminophen/ Hydrocodone Bitart (Lortab 5/325) 1 tab PRN Q4HRS PRN PO MILD PAIN 1-3 Last administered on 06/28/21at 12:07; Start 06/19/21 at 16:45 Oxycodone/ Acetaminophen (Percocet 7.5/ 325) 1 tab PRN Q4HRS PRN PO MODERATE TO SEVERE PAIN 4-10 Last administered on 06/29/21at 04:32; Start 06/21/21 at 08:00 Gadoterate Meglumine (Clariscan) 14 ml 1X ONCE IVP Last administered on 06/22/21at 15:50; Start 06/22/21 at 14:45; Stop 06/22/21 at 14:51; Status DC Enoxaparin Sodium (Lovenox 40mg Syringe) 40 mg Q24H SQ Last administered on 06/23/21at 08:55; Start 06/23/21 at 09:00; Stop 06/24/21 at 06:34; Status DC Lisinopril (Prinivil) 5 mg DAILY PO Last administered on 06/24/21at 08:10; Start 06/24/21 at 09:00; Stop 06/25/21 at 08:54; Status DC Polyethylene Glycol (miraLAX PACKET) 17 gm DAILY PO Last administered on 06/28/21at 08:58; Start 06/24/21 at 10:00 Senna/Docusate Sodium (Senna Plus) 2 tab [id number] PRN PO CONSTIPATION Last administered on 06/24/21at 12:16; Start 06/24/21 at 10:00 Iohexol (Omnipaque 300 Mg/ml) 75 ml 1X ONCE IV Last administered on 06/25/21at 10:54; Start 06/25/21 at 10:30; Stop 06/25/21 at 10:31; Status DC Info (CONTRAST GIVEN -- Rx MONITORING) 1 each PRN DAILY PRN MC SEE COMMENTS; Start 06/25/21 at 10:30; Stop 06/27/21 at 10:29; Status DC Active Scripts Active Reported Levothyroxine Sodium 200 Mcg Tablet 1 Tab PO DAILY Metoprolol Succinate ( Xl ) (Metoprolol Succinate) 25 Mg Tab.er.24h 1 Tab PO DAILY Hydrocodone-Apap 5-325 (Hydrocodone Bit/Acetaminophen) 1 Tab Tablet 1 Tab PO PRN Q6HRS PRN Tizanidine Hcl 4 Mg Tablet 2 Mg PO TID PRN Aspir 81 (Aspirin) 81 Mg Tablet.dr 81 Mg PO DAILY Onglyza (Saxagliptin Hcl) 5 Mg Tablet 5 Mg PO DAILY Metformin Hcl 500 Mg Tablet 500 Mg PO DAILY Simvastatin 20 Mg Tablet 20 Mg PO DAILY Vitals/I & O Vital Sign - Last 24 Hours 06/28/21 06/28/21 06/28/21 06/28/21 09:42 10:40 11:00 12:07 Temp 98.2 98.2 Pulse 70 Resp 18 B/P (MAP) 114/66 (82) Pulse Ox 98 98 98 98 O2 Delivery Nasal Cannula Nasal Cannula Nasal Cannula Nasal Cannula O2 Flow Rate 3.0 3.0 3.0 3.0 06/28/21 06/28/21 06/28/21 06/28/21 12:09 15:00 16:27 17:40 Temp 98.6 98.6 Pulse 73 Resp 18 B/P (MAP) 93/69 (77) Pulse Ox 98 94 98 98 O2 Delivery Nasal Cannula Nasal Cannula Nasal Cannula Nasal Cannula O2 Flow Rate 3.0 3.0 3.0 3.0 06/28/21 06/28/21 06/28/21 06/28/21 19:00 19:45 20:30 21:00 Temp 97.9 97.9 Pulse 72 Resp 18 20 20 B/P (MAP) 116/64 (81) Pulse Ox 93 O2 Delivery Nasal Cannula Nasal Cannula Nasal Cannula Nasal Cannula O2 Flow Rate 3.0 3.0 3.0 3.0 06/28/21 06/29/21 06/29/21 06/29/21 23:00 00:30 01:00 02:46 Temp 98.1 98.0 98.1 98.0 Pulse 75 66 Resp 18 20 20 18 B/P (MAP) 130/74 (92) 117/67 (84) Pulse Ox 97 98 O2 Delivery Nasal Cannula Room Air Nasal Cannula Nasal Cannula O2 Flow Rate 3.0 3.0 3.0 06/29/21 06/29/21 06/29/21 04:32 05:02 07:00 Temp 97.5 97.5 Pulse 65 Resp 20 20 18 B/P (MAP) 110/74 (86) Pulse Ox 97 O2 Delivery Room Air Nasal Cannula Nasal Cannula O2 Flow Rate 3.0 3.0 Intake and Output 06/28/21 06/28/21 06/29/21 15:00 23:00 07:00 Intake Total 240 ml 200 ml 180 ml Output Total 700 ml Balance 240 ml 200 ml -520 ml Justifications for Admission Other Justification LAYO HINOJOSA MD Jun 29, 2021 08:39
--- NOTE | 2021-06-29 09:04 | PDOC ---
PROGRESS NOTES Date of Service: DATE: 06/29/21 TIME: 09:01 Subjective Subjective feels good ,plans for discharge. Objective Objective Vital Signs Date Time Temp Pulse Resp B/P (MAP) Pulse Ox O2 Delivery O2 Flow Rate FiO2 06/29/21 08:39 Nasal Cannula 3.0 06/29/21 07:00 97.5 65 18 110/74 (86) 97 97.5 Intake and Output 06/29/21 07:00 Intake Total 620 ml Output Total 700 ml Balance -80 ml Intake Oral 620 ml Output Urine Total 700 ml Physical Exam Abdomen: Soft, No tenderness Heart: Regular rate, No murmurs Extremities: No edema General: Alert, Oriented X3, Cooperative HEENT: Atraumatic, PERRLA, EOMI, Mucous membr. moist/pink, Other (O2 NC in place) Lungs: Other (Poor air movement, no wheezing or crackles. Chest tube in place.) MUSCULOSKELETAL: Other (Severe point tenderness at biopsy site at T12, to the right of midline) Neck: No JVD Neuro: Normal speech, Strength at 5/5 X4 ext, Cranial nerves 3-12 NL Psych/Mental Status: Mental status NL, Mood NL Skin: No rashes COMMENT rt chest pleuravac Assessment Assessment IMPRESSION: 1. [id number] respiratory failure, multifactorial. 2. Spontaneous pneumothorax in a patient with a history of COVID with severe emphysema and previous scans revealing pneumatoceles. 3. COVID-19 viral pneumonia, hospitalized for a prolonged period of time, . 4. History of right-sided cavitary lesion treated for lung abscess, with Augmentin for approximately 2-[address] chest revealing resolution. 5. Type 2 diabetes. 6. Mild narrowing of the upper trachea from previous tracheotomy. 7. 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 8. T12 mass, status post biopsy. PLAN: cxr - small loculated Pneumothorax. D/C pleurovac today ? home today. out pt Radiation to spine next week daily for 5 days (5 treatments). Need MRI+PET scan out pt. Looks like primary lung ca with mets to vertebra and ribs .Stage 4 discussed with oncology. Comment Review of Relevant I have reviewed the following items del (where applicable) has been applied. Labs Microbiology 06/19/21 AFB Specimen Processing Tissue - Final, Resulted 06/19/21 Acid Fast Bacilli Culture, Resulted Pending 06/19/21 Gram Stain - Final, Resulted 06/19/21 Fungal Culture, Resulted Pending 06/19/21 Fungal Culture Result 1, Resulted Pending Vitals/I & O Vital Sign - Last 24 Hours 06/28/21 06/28/21 06/28/21 06/28/21 09:42 10:40 11:00 12:07 Temp 98.2 98.2 Pulse 70 Resp 18 B/P (MAP) 114/66 (82) Pulse Ox 98 98 98 98 O2 Delivery Nasal Cannula Nasal Cannula Nasal Cannula Nasal Cannula O2 Flow Rate 3.0 3.0 3.0 3.0 06/28/21 06/28/21 06/28/21 06/28/21 12:09 15:00 16:27 17:40 Temp 98.6 98.6 Pulse 73 Resp 18 B/P (MAP) 93/69 (77) Pulse Ox 98 94 98 98 O2 Delivery Nasal Cannula Nasal Cannula Nasal Cannula Nasal Cannula O2 Flow Rate 3.0 3.0 3.0 3.0 06/28/21 06/28/21 06/28/21 06/28/21 19:00 19:45 20:30 21:00 Temp 97.9 97.9 Pulse 72 Resp 18 20 20 B/P (MAP) 116/64 (81) Pulse Ox 93 O2 Delivery Nasal Cannula Nasal Cannula Nasal Cannula Nasal Cannula O2 Flow Rate 3.0 3.0 3.0 3.0 06/28/21 06/29/21 06/29/21 06/29/21 23:00 00:30 01:00 02:46 Temp 98.1 98.0 98.1 98.0 Pulse 75 66 Resp 18 20 20 18 B/P (MAP) 130/74 (92) 117/67 (84) Pulse Ox 97 98 O2 Delivery Nasal Cannula Room Air Nasal Cannula Nasal Cannula O2 Flow Rate 3.0 3.0 3.0 06/29/21 06/29/21 06/29/21 06/29/21 04:32 05:02 07:00 08:39 Temp 97.5 97.5 Pulse 65 Resp 20 20 18 B/P (MAP) 110/74 (86) Pulse Ox 97 O2 Delivery Room Air Nasal Cannula Nasal Cannula Nasal Cannula O2 Flow Rate 3.0 3.0 3.0 Intake and Output 2/06/28/21 06/29/21 15:00 23:00 07:00 Intake Total 240 ml 200 ml 180 ml Output Total 700 ml Balance 240 ml 200 ml -520 ml Justifications for Admission Other Justification ROSE OCONNELL MD Jun 29, 2021 09:04
--- NOTE | 2021-06-29 09:32 | PDOC ---
PULMONARY PROGRESS NOTES DATE: 06/29/21 TIME: 09:32 Subjective Patient not more short of air continues to have lower back pain Vitals Vital Signs Date Time Temp Pulse Resp B/P (MAP) Pulse Ox O2 Delivery O2 Flow Rate FiO2 06/29/21 09:14 Nasal Cannula 3.0 06/29/21 07:00 97.5 65 18 110/74 (86) 97 97.5 ROS: No Nausea, No Chest Pain, No Abdominal Pain, No Increase Cough General: Alert HEENT: Other (nc at perrl ) Lungs: Clear, Other (right chest tube ) Cardiovascular: S1, S2 Abdomen: Soft, Non-tender Neuro Exam: Alert Extremities: No Edema Skin: Warm Medications Active Scripts Medications Dose Route/Sig Max Daily Dose Days Date Category Hydrocodone-Apap 5-325 (Hydrocodone Bit/Acetaminophen) 1 Tab Tablet 1 Tab PO PRN Q6HRS PRN 06/19/21 Reported Tizanidine Hcl 4 Mg Tablet 2 Mg PO TID PRN 06/19/21 Reported Aspir 81 (Aspirin) 81 Mg Tablet.dr 81 Mg PO DAILY 11/06/13 Reported Lisinopril 10 Mg Tablet 10 Mg PO DAILY 11/06/13 Reported Onglyza (Saxagliptin Hcl) 5 Mg Tablet 5 Mg PO DAILY 11/06/13 Reported Metformin Hcl 500 Mg Tablet 500 Mg PO DAILY 11/06/13 Reported Levothyroxine Sodium 112 Mcg Tablet 112 Mcg PO DAILYAC 11/06/13 Reported Toprol Xl (Metoprolol Succinate) 50 Mg Tab.er.24h 50 Mg PO DAILY 11/06/13 Reported Simvastatin 20 Mg Tablet 20 Mg PO DAILY 11/06/13 Reported Comments 06/25/21 CT CHEST IMPRESSION: 1. Right superior medial thorax pleural-based mass with associated thick-walled cavitary component and destructive changes involving the overlying posterior medial right fifth rib measuring approximately 6.0 cm in maximum dimension. The size of this lesion and associated bony destruction has increased compared to the study performed 04/05/2021. Correlate with pathology findings from the biopsy performed 06/19/2021. 2. Destructive lytic lesion involving T12 with extension to the central canal and overlying retrocrural space, stable to slightly increased compared to the study performed 06/08/2021. 3. Small moderate right pneumothorax. There is a anterior right pleural drainage catheter in expected position. 4. Severe emphysema with superimposed pulmonary fibrosis and multifocal pleural parenchymal scarring. 5. Stable prominent right paratracheal lymph node. This is indeterminate and may be reactive in etiology. Impression . IMPRESSION: 1. Khapt-vo-auisvwe respiratory failure, multifactorial.--improving 2. Spontaneous pneumothorax in a patient with a history of COVID with severe emphysema and previous scans revealing pneumatoceles. 3. COVID-19 viral pneumonia, hospitalized for a prolonged period of time, he was at [facility], for quite some time. He was discharged home back in 06/2020. 4. History of right-sided cavitary lesion treated for lung abscess, with Augmentin for approximately 2-[address] chest revealing resolution. 5. Type 2 diabetes. 6. Mild narrowing of the upper trachea from previous tracheotomy. 7. 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 8. T12 mass, status post biopsy.--oncology following, suspect stage IV primary lung cancer Repeat CT chest IMPRESSION: 1. Right superior medial thorax pleural-based mass with associated thick-walled cavitary component and destructive changes involving the overlying posterior medial right fifth rib measuring approximately 6.0 cm in maximum dimension. The size of this lesion and associated bony destruction has increased compared to the study performed 04/05/2021. Correlate with pathology findings from the biopsy performed 06/19/2021. 2. Destructive lytic lesion involving T12 with extension to the central canal and overlying retrocrural space, stable to slightly increased compared to the study performed 06/08/2021. 3. Small moderate right pneumothorax. There is a anterior right pleural drainage catheter in expected position. 4. Severe emphysema with superimposed pulmonary fibrosis and multifocal pleural parenchymal scarring. 5. Stable prominent right paratracheal lymph node. This is indeterminate and may be reactive in etiology. Plan . Updated 06/29 Chest x-ray reviewed, no pneumothorax Chest tube has been clamped for past 24 hours DC chest tube discharge home Discussed with Dr. Way and Dr. OCONNELL Updated 06/28 Off wall suction since yesterday, chest x-ray noted with no pneumo Plan to Appreciate radiation oncology inpu Continue supplemental oxygen to keep oxygen saturations greater than 92% Bronchodilators as needed Pathology:Lung adenocarcinoma with sarcomatoid features, TX NX M1, Follow oncology recommendations--outpatient MRI and PET scan for staging Follow infectious disease recommendations, remains off antibiotics HANNAH HERNANDEZ MD Jun 29, 2021 09:32
--- NOTE | 2021-06-29 10:01 | NUR ---
SW following. Discussed with RN, chest xrays and possible chest tube removal today. Possible discharge home. SW will continue to follow.
[2021-06-29 11:00] VITALS: BP 113/70
--- NOTE | 2021-06-29 11:19 | RAD ---
Single view of the chest. 06/29/2021 10:31 AM Indication: PNEUMOTHORAX / Comparison: Chest radiograph, yesterday Findings: Right chest tube remains in place. Right apical bleb again noted. No definitive pneumothora x is seen. No new infiltrate is seen. Severe diffuse interstitial lung disease is similar. Heart size is stable. IMPRESSION: Right chest tube remains in place. No definitive pneumothorax is seen. Electronically signed by: Danny Lopez MD (06/29/2021 11:16 AM) [id number]
[2021-06-29 15:00] VITALS: BP 132/73
--- NOTE | 2021-06-29 16:34 | NUR ---
Patient discharge home with self care today, via wheelchair, accompanied by aid and family member. Patient was stable, IV removed, and discharge paperwork given to patient. Patient verbalized understanding of follow up and discharge instruction.
--- NOTE | 2021-07-08 18:12 | PDOC ---
Provider Note Date of Service: DATE: 07/08/21 TIME: 18:11 Provider Note Discharge summary dictated.#[id number] Justifications for Admission Other Justification ROSE OCONNELL MD Jul 08, 2021 18:12
--- NOTE | 2021-07-09 03:10 | DS ---
DATE OF DISCHARGE: 06/29/2021 REASON FOR ADMISSION TO THE HOSPITAL: 1. Spontaneous pneumothorax. 2. T12 bone biopsy for abnormal tumor in the T12 vertebra. CONSULTATIONS: 1. Dr. Kowalski. 2. Dr. Hinojosa. 3. Dr. Lopez, Interventional Radiology. PROCEDURES DONE: CT-guided biopsy of the thoracic spine, Pleur-evac, spine MRI, CT of the chest. HOSPITAL COURSE: The patient is a 66-year-old male with history of severe COPD. He had COVID last year. He was in the hospital for 3 months. He was in the rehab for another 3 months. Finally, discharged last year and he was having pain in the right flank area. I saw him in the office and CT scan of the abdomen and pelvis picked up abnormal T12 vertebra with a bony lesion and the patient was referred to Oncology. CT-guided biopsy was recommended by IR and the patient was supposed to get the biopsy. He was complaining of shortness of breath for last couple of days. He is on oxygen for COPD, usually between 2-4 liters, but he was more short of breath, so x-ray even before the biopsy shows a spontaneous pneumothorax, so the patient had a right chest tube with CT guidance and Pleur-evac established and the patient also at the same time had CT-guided biopsy of the T12 spinal mass. The patient was seen by Pulmonology and the patient will remain on a chest tube. A pathology came back for non-small cell shows a poorly differentiated malignant neoplasm with sarcomatoid features, favored as non-small cell carcinoma. The patient had a CT of the chest, which showed a right superior pleural based mass with a thick wall cavity component with destructive changes involving the posterior medial right fifth rib measuring 6 cm in dimensions, so it was felt that it could be the primary with metastasis and the patient was thought that he had a stage 4 CA and the patient finally had a chest tube removed after a couple of days and it was felt that the patient would need a PET scan as well as MRI of the brain to finish the workup. In the meantime, the patient was seen by Radiation Oncology for T12 metastasis. It was recommended outpatient radiation treatment 5 doses. Thoracic spine MRI shows lytic lesion in T12 vertebra reflecting metastatic disease and also the patient was seen by Neurosurgery. Does not think any neurosurgical intervention is needed. FINAL DIAGNOSES: 1. Spontaneous Right pneumothorax, requiring Pleur-evac placement. 2. T12 vertebral body lesion, metastatic lesion from primary lung cancer. 3. Right upper lobe lung tumor, like primary lung cancer.Non small cell. 4. Chronic obstructive pulmonary disease. DISPOSITION: The patient is going to go home. Outpatient radiation daily for 5 days and further workup with a PET scan and MRI of the brain and chemotherapy after the workup. The patient is going to follow up with Radiation Oncology, Oncology and Pulmonology. ROMANA/ADINA/JAY DR: Candelario TID: [id number] MTDD
== END 2021-06-29 16:51 | disposition home or self-care (01) | DRG 166 ==
LOC: INTRAD 07:52 → 4 NORTH 09:39
PROVIDERS: ADMIT Internal Medicine; ATTEND Internal Medicine
PROC: 0PB43ZX Excision of Thoracic Vertebra, Percutaneous Approach, Diagnostic (ICD-10-PCS; principal; 2021-06-19)
PROC: 0W9930Z Drainage of Right Pleural Cavity with Drainage Device, Percutaneous Approach (ICD-10-PCS; 2021-06-19)
DX: C34.11 Malignant neoplasm of upper lobe, right bronchus or lung (principal); J96.20 Acute and chronic respiratory failure, unspecified whether with hypoxia or hypercapnia; C79.51 Secondary malignant neoplasm of bone; I42.9 Cardiomyopathy, unspecified; J93.83 Other pneumothorax; E03.9 Hypothyroidism, unspecified; E11.9 Type 2 diabetes mellitus without complications; E78.5 Hyperlipidemia, unspecified; G89.3 Neoplasm related pain (acute) (chronic); I10 Essential (primary) hypertension; J43.9 Emphysema, unspecified; J84.10 Pulmonary fibrosis, unspecified; J98.4 Other disorders of lung; Z83.3 Family history of diabetes mellitus; Z93.0 Tracheostomy status; F17.201 Nicotine dependence, unspecified, in remission; M19.90 Unspecified osteoarthritis, unspecified site; Z20.822 Contact with and (suspected) exposure to COVID-19; E87.5 Hyperkalemia
CPT/HCPCS: 20225; 32557; 36415; 71045; 71260; 72157; 76380; 77012; 80048; 80053; 82962; 85025; 85610; 87015; 87075; 87102; 87116; 88307; 88311; 88341; 88342; 99152; 99153; A9575; C1892; G0103; J1650; J2250; J3010; J3490; Q9967; G0378

== ENCOUNTER → 2021-07-02 | Outpatient (CLI) | payer BC, OTHER ==
[2021-06-29 15:00] VITALS: BP 132/73
[~2021-07-02] MED LIST changes: +HYDR-2761 PO; +LEVO200T5 PO; +METO-239 PO; +TIZA-75 PO
[2021-07-02 08:51] LABS: BASO % 0 % (0-3); EOS # 0.4 x10^3/uL (0.0-0.7); EOS % 2 % (0-3); HEMATOCRIT 38.3 % (39.0-53.0); HEMOGLOBIN 12.3 g/dL (13.0-17.5); LYMPH # 4.7 x10^3/uL (1.0-4.8); LYMPH % 30 % (24-48); MEAN CORPUSCULAR HEMOGLOBIN 26 pg (25-35); MEAN CORPUSCULAR HGB CONC 32 g/dL (31-37); MEAN CORPUSCULAR VOLUME 81 fL (79-100); MONO # 0.9 x10^3/uL (0.0-1.1); MONO % 6 % (0-9); NEUT # 9.6 x10^3/uL (1.8-7.7); NEUT % 62 % (31-73); PLATELET COUNT 402 x10^3/uL (140-400); RED BLOOD COUNT 4.74 x10^6/uL (4.30-5.70); RED CELL DISTRIBUTION WIDTH 14.8 % (11.5-14.5); WHITE BLOOD COUNT 15.7 x10^3/uL (4.0-11.0)
[2021-07-02 08:52] LABS: CALCIUM 9.2 mg/dL (8.5-10.1); CREATININE 0.9 mg/dL (0.7-1.3); POTASSIUM 4.7 mmol/L (3.5-5.1)
[2021-07-02 08:58] LABS: ALBUMIN 3.4 g/dL (3.4-5.0); ALBUMIN/GLOBULIN RATIO 0.6 (1.0-1.7); TOTAL BILIRUBIN 0.3 mg/dL (0.2-1.0); TOTAL PROTEIN 8.7 g/dL (6.4-8.2)
== END ==
LOC: ONCLAB 08:08
PROVIDERS: ATTEND Internal Medicine Hematology & Oncology
DX: C41.2 Malignant neoplasm of vertebral column (principal)
CPT/HCPCS: 36415; 80053; 85025

== ENCOUNTER → 2021-07-13 | Outpatient (CLI) | payer BC, OTHER ==
[2021-06-29 15:00] VITALS: BP 132/73
[~2021-07-13] MED LIST changes: +CONTRAST GIVEN. MC PRN; +GADOTERATE 7.5 MMOL/15ML VIAL. IVP ONE; +IOHEXOL 300 MG/ML 100ML VIAL. IV ONE
--- NOTE | 2021-07-13 11:49 | RAD ---
PQRS Compliance Statement: One or more of the following individualized dose reduction techniques were utilized for this examinat ion: 1. Automated exposure control 2. Adjustment of the mA and/or kV according to patient size 3. Use of iterative reconstruction technique CT THORAX W Clinical Indication: Reason: MASS T-12 BONE CA / Comparison: CT chest with contrast 06/25/2021. The Technique: Helical CT imaging of the chest is performed after 75 cc Omnipaque 300 IV contrast. Findings: The thyroid is symmetric. No hilar or mediastinal adenopathy is seen. No central pulmonary embolus is identified. Great vessels are stable. Coronary artery disease. The cardiac size is normal, no perica rdial effusion. There is paraseptal and centrilobular emphysema. There are fibrotic changes in the lung bases that ar e unchanged. Previously seen right pneumothorax has resolved. The right chest tube has been removed. The pleural-based cavitary mass of the posterior right upper lobe with invasion of the posterior extr apleural fat and lytic destruction of the right posterior fifth rib has slightly increased in size. I t now measures 5.2 cm AP by 5.3 cm transverse, previously 4.5 x 5.4 cm. There is a 1.3 cm groundglass nodule in the left upper lobe, image 20. Adrenal gland hyperplasia. Endovascular stent of the abdominal aorta is incompletely imaged. Bilatera l renal cysts do not require follow-up. Redemonstrated lytic destructive lesion with soft tissue component of the T12 vertebral body with inv olvement of the right pedicle. There is probably a small anterior epidural component, please refer to same-day MR thoracic spine for additional details. There is soft tissue component of the mass to the right of the vertebral body with thickening of the right crura. The mass in conglomerate measures ap proximately 4.3 cm AP by 4.8 cm transverse. It previously measured approximately 4.3 x 4.5 cm. IMPRESSION: 1. The pleural-based cavitary mass of the posterior right upper lobe with invasion of posterior extr apleural fat and lytic destruction of the right posterior fifth rib has slightly increased in size. 2. The lytic soft tissue mass of the right T12 vertebral body is stable to slightly larger. Please r efer to MR thoracic spine report for additional details. 3. Previously seen pneumothorax has resolved. 4. Pulmonary emphysema and basilar predominant fibrotic changes are redemonstrated. Electronically signed by: Douglas Gilliland MD (07/13/2021 11:47 AM) [id number]
--- NOTE | 2021-07-13 14:04 | RAD ---
MRI of the Brain without and with Contrast 07/13/2021 Clinical History: Metastatic cancer. Staging study.. Technique: Unenhanced T1-weighted sagittal and axial and FLAIR, T2-weighted, susceptibility weighted and diffusion-weighted axial images of the brain were obtained. After the intravenous administration of 15 cc of CLARISCAN, enhanced T1-weighted axial, sagittal and coronal images of the brain were obta ined. Findings: There is generalized parenchymal atrophy. The cerebellar tonsils are low-lying. Patchy, con fluent and multiple small focal areas of increased signal intensity are seen within the periventricul ar and subcortical white matter posterolateral hemispheres on the FLAIR and T2-weighted images consis tent with areas of small vessel ischemic disease. No acute parenchymal abnormality is seen. No area o f abnormal contrast enhancement is noted. There is no MRI evidence of acute ischemia/infarction. No e xtra-axial fluid collection is seen. Mild to moderate mucosal thickening is seen throughout the paranasal sinuses. There is a minimal righ t mastoid effusion. There is a small left mastoid effusion. Normal flow voids are seen within the lebron or vascular structures surrounding the brain parenchyma. IMPRESSION: No acute parenchymal abnormality is seen. There is no MRI evidence of metastatic disease involving the brain parenchyma. Electronically signed by: Dipak Pablo MD (07/13/2021 2:02 PM) [id number]
--- NOTE | 2021-07-13 14:50 | RAD ---
MRI of the thoracic spine without and with contrast 07/13/2021 CLINICAL HISTORY: Metastatic cancer with thoracic metastasis. TECHNIQUE: Unenhanced T1-weighted, T2-weighted and inversion recovery sagittal and T1-weighted and T2 -weighted axial images of the thoracic spine were obtained. After the intravenous administration of 1 5 cc of Clariscan, enhanced T1-weighted sagittal images of the thoracic spine were obtained. FINDINGS: Comparison study is dated 06/22/2021. Very mild S-shaped curvature of the thoracolumbar spine is seen. Degenerative signal changes are seen involving all of the disks of the thoracic spine. A 1.8 cm hemangioma is seen involving the T3 verte bral body. The thoracic spinal cord is normal in morphology, position, and signal characteristics. An expansile metastasis is seen centered within the right T12 pedicle. This extends to involve the ri ght aspect of the T12 vertebral body and laterally involving the right lateral paravertebral soft tis sues, the posterior right fourth rib and right crux of the hemidiaphragm. This measures 5.2 cm in gre atest diameter. It extends to involve the right anterior epidural space without resulting in signific ant central spinal canal stenosis or cord impingement. Mild to moderate narrowing of the right T12-L1 neural foramen is seen, unchanged. A 2.6 cm soft tissue metastasis is seen involving the posterior lateral crux of the right hemidiaphra gm more superiorly. This is unchanged. A cavitary mass is seen involving the posterior aspect of the right upper lobe. This extends to involve posterior aspect of the right fifth rib and abuts the later al aspect of the right T5 vertebrae. This measures 6.2 cm in greatest transverse diameter. It has not significantly changed. No additional metastasis is seen involving the thoracic vertebrae. Relatively mild degenerative changes are seen involving the thoracic spine consisting of minimal gene ralized disc bulges and degenerative changes involving the facet joints. These findings do not result in significant central spinal canal or neural foraminal stenosis. IMPRESSION: A metastasis is again seen involving the T12 vertebral body which has not significantly c hanged since the previous examination. No new metastasis is seen involving the thoracic vertebra. Electronically signed by: Dipak Pablo MD (07/13/2021 2:48 PM) [id number]
== END ==
LOC: CT 09:09
PROVIDERS: ATTEND Internal Medicine Hematology & Oncology
DX: C41.2 Malignant neoplasm of vertebral column (principal); J43.2 Centrilobular emphysema; J84.10 Pulmonary fibrosis, unspecified; R91.1 Solitary pulmonary nodule; I25.10 Atherosclerotic heart disease of native coronary artery without angina pectoris; E27.8 Other specified disorders of adrenal gland; G31.9 Degenerative disease of nervous system, unspecified; D18.09 Hemangioma of other sites
CPT/HCPCS: 70553; 71260; 72157; A9575; Q9967

== ENCOUNTER → 2021-07-18 | Outpatient (CLI) | payer OTHER ==
[2021-06-29 15:00] VITALS: BP 132/73
[~2021-07-18] MED LIST changes: -CONTRAST GIVEN. MC PRN; -GADOTERATE 7.5 MMOL/15ML VIAL. IVP ONE; -IOHEXOL 300 MG/ML 100ML VIAL. IV ONE
[2021-07-18 10:01] LABS: BASO % 0 % (0-3); EOS # 0.2 x10^3/uL (0.0-0.7); EOS % 2 % (0-3); HEMOGLOBIN 11.9 g/dL (13.0-17.5); LYMPH # 1.9 x10^3/uL (1.0-4.8); LYMPH % 16 % (24-48); MEAN CORPUSCULAR HEMOGLOBIN 26 pg (25-35); MEAN CORPUSCULAR HGB CONC 32 g/dL (31-37); MEAN CORPUSCULAR VOLUME 80 fL (79-100); MONO % 8 % (0-9); NEUT # 8.8 x10^3/uL (1.8-7.7); NEUT % 74 % (31-73); PLATELET COUNT 378 x10^3/uL (140-400); RED BLOOD COUNT 4.63 x10^6/uL (4.30-5.70); RED CELL DISTRIBUTION WIDTH 15.6 % (11.5-14.5); WHITE BLOOD COUNT 11.8 x10^3/uL (4.0-11.0)
[2021-07-18 10:07] LABS: CALCIUM 9.5 mg/dL (8.5-10.1); CREATININE 0.8 mg/dL (0.7-1.3); GFR 97.3; POTASSIUM 3.9 mmol/L (3.5-5.1)
[2021-07-18 10:14] LABS: ALBUMIN 3.4 g/dL (3.4-5.0); ALBUMIN/GLOBULIN RATIO 0.6 (1.0-1.7); TOTAL BILIRUBIN 0.4 mg/dL (0.2-1.0); TOTAL PROTEIN 8.9 g/dL (6.4-8.2)
== END ==
LOC: ONCLAB 09:24
PROVIDERS: ATTEND Internal Medicine Hematology & Oncology
DX: C41.2 Malignant neoplasm of vertebral column (principal)
CPT/HCPCS: 36415; 80053; 85025

== ENCOUNTER → 2021-07-26 | Outpatient (CLI) | payer OTHER ==
[2021-06-29 15:00] VITALS: BP 132/73
[2021-07-26 08:44] LABS: BASO % 0 % (0-3); EOS # 0.4 x10^3/uL (0.0-0.7); EOS % 3 % (0-3); HEMATOCRIT 36.5 % (39.0-53.0); HEMOGLOBIN 11.6 g/dL (13.0-17.5); LYMPH # 2.3 x10^3/uL (1.0-4.8); LYMPH % 20 % (24-48); MEAN CORPUSCULAR HEMOGLOBIN 26 pg (25-35); MEAN CORPUSCULAR HGB CONC 32 g/dL (31-37); MEAN CORPUSCULAR VOLUME 81 fL (79-100); MONO # 0.7 x10^3/uL (0.0-1.1); MONO % 6 % (0-9); NEUT # 8.3 x10^3/uL (1.8-7.7); NEUT % 71 % (31-73); PLATELET COUNT 347 x10^3/uL (140-400); RED CELL DISTRIBUTION WIDTH 16.4 % (11.5-14.5); WHITE BLOOD COUNT 11.6 x10^3/uL (4.0-11.0)
[2021-07-26 08:57] LABS: CALCIUM 9.5 mg/dL (8.5-10.1); CREATININE 0.9 mg/dL (0.7-1.3); POTASSIUM 3.9 mmol/L (3.5-5.1)
[2021-07-26 09:03] LABS: ALBUMIN 3.4 g/dL (3.4-5.0); ALBUMIN/GLOBULIN RATIO 0.7 (1.0-1.7); TOTAL BILIRUBIN 0.4 mg/dL (0.2-1.0); TOTAL PROTEIN 8.5 g/dL (6.4-8.2)
== END ==
LOC: ONCLAB 08:23
PROVIDERS: ATTEND Internal Medicine Hematology & Oncology
DX: C41.2 Malignant neoplasm of vertebral column (principal)
CPT/HCPCS: 36415; 80053; 85025

== ENCOUNTER → 2021-08-16 | Outpatient (CLI) | payer OTHER ==
[2021-08-16 08:36] LABS: BASO % 0 % (0-3); EOS # 0.2 x10^3/uL (0.0-0.7); EOS % 2 % (0-3); HEMATOCRIT 37.2 % (39.0-53.0); HEMOGLOBIN 12.2 g/dL (13.0-17.5); LYMPH # 2.6 x10^3/uL (1.0-4.8); LYMPH % 20 % (24-48); MEAN CORPUSCULAR HEMOGLOBIN 27 pg (25-35); MEAN CORPUSCULAR HGB CONC 33 g/dL (31-37); MEAN CORPUSCULAR VOLUME 81 fL (79-100); MONO # 0.7 x10^3/uL (0.0-1.1); MONO % 5 % (0-9); NEUT # 9.7 x10^3/uL (1.8-7.7); NEUT % 73 % (31-73); PLATELET COUNT 421 x10^3/uL (140-400); RED BLOOD COUNT 4.59 x10^6/uL (4.30-5.70); RED CELL DISTRIBUTION WIDTH 16.6 % (11.5-14.5); WHITE BLOOD COUNT 13.2 x10^3/uL (4.0-11.0)
[2021-08-16 08:37] LABS: CALCIUM 9.5 mg/dL (8.5-10.1); CREATININE 0.9 mg/dL (0.7-1.3); POTASSIUM 4.1 mmol/L (3.5-5.1)
[2021-08-16 08:42] LABS: ALBUMIN 3.4 g/dL (3.4-5.0); ALBUMIN/GLOBULIN RATIO 0.6 (1.0-1.7); TOTAL BILIRUBIN 0.3 mg/dL (0.2-1.0); TOTAL PROTEIN 8.8 g/dL (6.4-8.2)
== END ==
LOC: ONCLAB 08:05
PROVIDERS: ATTEND Internal Medicine Hematology & Oncology
DX: C34.11 Malignant neoplasm of upper lobe, right bronchus or lung (principal); C79.51 Secondary malignant neoplasm of bone
CPT/HCPCS: 36415; 80053; 85025

== ENCOUNTER → 2021-08-17 | Outpatient (CLI) | payer OTHER ==
--- NOTE | 2021-08-17 14:44 | RAD ---
EXAM: PET/CT SKULL BASE THROUGH MID THIGH. HISTORY: Bone mass. TECHNIQUE: CT of the skull base through the mid thighs was performed for the purposes of attenuation correction. 12.8 mCi F-18 fluorodeoxyglucose were administered intravenously. Blood glucose level at the time of administration was 146 mg/dL. After 45 minutes uptake, positron emission tomography of th e skull base through the mid thighs was performed. The PET and CT data were fused and interpreted in combination on a dedicated workstation. Reported standard uptake values (SUV) are the maximum SUV wit hin a lesional volumetric region of interest. SUV normalization is via body mass. COMPARISON: Thoracic spine MRI 07/13/2021. Chest CT 07/13/2021. FINDINGS: Mediastinal blood pool max SUV reference value: 2.2. Background liver max SUV reference value: 2.8. Head and neck: Diffuse increased activity within the thyroid gland, likely physiologic. Bilateral max illary sinus mucoperiosteal thickening. Chest: Large irregular 6.5 cm thick-walled cavitary lesion in the right upper lobe adjacent to the po sterior pleural surface demonstrates peripheral moderate hypermetabolic activity SUV max 11.9. The as sociated posterior soft tissue mass causes destruction of the right posterior fifth and sixth ribs. A small cavitary lesion more centrally measuring 1.6 cm diameter demonstrates mild hypermetabolic acti vity 3.4 SUV max. Extensive emphysematous change. Coronary calcification and small pericardial effusi on. No pleural effusion. Far posterior pleural surface mildly hypermetabolic 1.6 x 1.2 cm pleural met astasis as well as further inferior likely pleural-based metastasis involving the right aspect of the T12 vertebral body measuring approximately 3.8 x 3.2 cm, 7.1 SUV max. No hypermetabolic mediastinal adenopathy. Abdomen and pelvis: There is mild increased metabolic activity involving the mid sigmoid colon where there is mild diverticulosis and subtle luminal narrowing without colonic wall thickening or pericolo shakila inflammatory changes, 4.6 SUV max. Additional findings including aortic aneurysm status post aort obiiliac iliac graft, markedly enlarged prostate. Skeletal and superficial soft tissues: Osseous destruction of the posterior right fifth and sixth rib s and right T12 vertebral body, likely expansion from primary and pleural metastatic disease. No incr eased metabolic activity associated with large L3 vertebral body sclerotic lesion, likely bone island . Bilateral fat-containing inguinal hernias. IMPRESSION: 1. Large irregular thick-walled cavitary lesion right upper lobe with moderate hypermetabolic activi ty concerning for primary lung malignancy causing soft tissue mass and osseous destruction of adjacen t right fifth and sixth ribs. 2. Adjacent right upper lobe satellite cavitary lesion with mild hypermetabolic activity. 3. Right posterior inferior pleural based metastasis, the more inferior of which is causing osseous destruction of the T12 vertebral body. 4. Mild hypermetabolic activity in the mid sigmoid colon adjacent to diverticula. This may be infect ious or inflammatory in nature, possibly physiologic in the setting of peristalsis, recommend correla tion with endoscopy to exclude colonic malignancy. 5. Other chronic findings including emphysema, coronary artery calcification, small pericardial effu kayleen, markedly enlarged prostate, aortic aneurysm status post aortobiiliac stenting, inguinal hernias . Electronically signed by: Guicho Ortiz MD (08/17/2021 2:42 PM) [id number]
== END ==
LOC: PETSC 09:17
PROVIDERS: ATTEND Internal Medicine Hematology & Oncology
DX: C41.2 Malignant neoplasm of vertebral column (principal); J43.9 Emphysema, unspecified; K57.30 Diverticulosis of large intestine without perforation or abscess without bleeding; I25.10 Atherosclerotic heart disease of native coronary artery without angina pectoris; I31.3 Pericardial effusion (noninflammatory); N40.0 Benign prostatic hyperplasia without lower urinary tract symptoms; M79.89 Other specified soft tissue disorders; K40.90 Unilateral inguinal hernia, without obstruction or gangrene, not specified as recurrent
CPT/HCPCS: 78815; A9552

== ENCOUNTER → 2021-08-24 | Outpatient (CLI) | payer OTHER ==
[2021-08-24 08:42] LABS: BASO # 0.1 x10^3/uL (0.0-0.2); BASO % 0 % (0-3); EOS # 0.2 x10^3/uL (0.0-0.7); EOS % 2 % (0-3); HEMATOCRIT 35.8 % (39.0-53.0); HEMOGLOBIN 11.9 g/dL (13.0-17.5); LYMPH # 2.3 x10^3/uL (1.0-4.8); LYMPH % 17 % (24-48); MEAN CORPUSCULAR HEMOGLOBIN 27 pg (25-35); MEAN CORPUSCULAR HGB CONC 33 g/dL (31-37); MEAN CORPUSCULAR VOLUME 81 fL (79-100); MONO # 1.1 x10^3/uL (0.0-1.1); MONO % 8 % (0-9); NEUT # 10.5 x10^3/uL (1.8-7.7); NEUT % 74 % (31-73); PLATELET COUNT 495 x10^3/uL (140-400); RED BLOOD COUNT 4.43 x10^6/uL (4.30-5.70); RED CELL DISTRIBUTION WIDTH 16.7 % (11.5-14.5); WHITE BLOOD COUNT 14.2 x10^3/uL (4.0-11.0)
[2021-08-24 08:51] LABS: CALCIUM 8.8 mg/dL (8.5-10.1); CREATININE 0.8 mg/dL (0.7-1.3); GFR 97.3; POTASSIUM 4.5 mmol/L (3.5-5.1)
[2021-08-24 09:03] LABS: ALBUMIN 3.5 g/dL (3.4-5.0); ALBUMIN/GLOBULIN RATIO 0.7 (1.0-1.7); TOTAL BILIRUBIN 0.4 mg/dL (0.2-1.0); TOTAL PROTEIN 8.3 g/dL (6.4-8.2)
[2021-08-24 10:41] LABS: BACTERIA,URINE 0 /HPF (0-FEW); RBC,URINE 0 /HPF (0-2); WBC,URINE OCC /HPF (0-4)
== END ==
LOC: ONCLAB 08:19
PROVIDERS: ATTEND Internal Medicine Hematology & Oncology
DX: C79.51 Secondary malignant neoplasm of bone (principal); C34.11 Malignant neoplasm of upper lobe, right bronchus or lung
CPT/HCPCS: 36415; 80053; 81001; 82306; 85025; 87040

== ENCOUNTER → 2021-09-06 | Outpatient (CLI) | payer OTHER ==
[2021-09-06 08:41] LABS: BASO % 0 % (0-3); EOS # 0.4 x10^3/uL (0.0-0.7); EOS % 3 % (0-3); HEMATOCRIT 33.5 % (39.0-53.0); HEMOGLOBIN 11.1 g/dL (13.0-17.5); LYMPH # 2.2 x10^3/uL (1.0-4.8); LYMPH % 19 % (24-48); MEAN CORPUSCULAR HEMOGLOBIN 27 pg (25-35); MEAN CORPUSCULAR HGB CONC 33 g/dL (31-37); MEAN CORPUSCULAR VOLUME 80 fL (79-100); MONO # 0.6 x10^3/uL (0.0-1.1); MONO % 5 % (0-9); NEUT # 8.4 x10^3/uL (1.8-7.7); NEUT % 73 % (31-73); PLATELET COUNT 513 x10^3/uL (140-400); RED CELL DISTRIBUTION WIDTH 16.2 % (11.5-14.5); WHITE BLOOD COUNT 11.6 x10^3/uL (4.0-11.0)
[2021-09-06 08:53] LABS: CALCIUM 9.2 mg/dL (8.5-10.1); GFR 75.2; POTASSIUM 3.9 mmol/L (3.5-5.1)
[2021-09-06 09:00] LABS: ALBUMIN 2.9 g/dL (3.4-5.0); ALBUMIN/GLOBULIN RATIO 0.5 (1.0-1.7); TOTAL BILIRUBIN 0.3 mg/dL (0.2-1.0); TOTAL PROTEIN 8.7 g/dL (6.4-8.2)
[2021-09-06 10:29] LABS: FREE T4 0.47 ng/dL (0.76-1.46); THYROID STIM HORMONE (TSH) 75.067 uIU/mL (0.358-3.74)
== END ==
LOC: ONCLAB 08:13
PROVIDERS: ATTEND Internal Medicine Hematology & Oncology
DX: C34.11 Malignant neoplasm of upper lobe, right bronchus or lung (principal); R53.83 Other fatigue
CPT/HCPCS: 36415; 80053; 84439; 84443; 85025

== ENCOUNTER → 2021-09-13 | Outpatient (CLI) | payer OTHER ==
[2021-09-13 08:43] LABS: BASO % 0 % (0-3); EOS # 0.6 x10^3/uL (0.0-0.7); EOS % 5 % (0-3); HEMATOCRIT 33.8 % (39.0-53.0); HEMOGLOBIN 11.1 g/dL (13.0-17.5); LYMPH # 3.1 x10^3/uL (1.0-4.8); LYMPH % 26 % (24-48); MEAN CORPUSCULAR HEMOGLOBIN 26 pg (25-35); MEAN CORPUSCULAR HGB CONC 33 g/dL (31-37); MEAN CORPUSCULAR VOLUME 81 fL (79-100); MONO # 0.8 x10^3/uL (0.0-1.1); MONO % 7 % (0-9); NEUT # 7.3 x10^3/uL (1.8-7.7); NEUT % 62 % (31-73); PLATELET COUNT 510 x10^3/uL (140-400); RED CELL DISTRIBUTION WIDTH 16.2 % (11.5-14.5); WHITE BLOOD COUNT 11.8 x10^3/uL (4.0-11.0)
[2021-09-13 10:17] LABS: CALCIUM 8.7 mg/dL (8.5-10.1); CREATININE 0.8 mg/dL (0.7-1.3); GFR 97.3
[2021-09-13 10:23] LABS: ALBUMIN 3.1 g/dL (3.4-5.0); ALBUMIN/GLOBULIN RATIO 0.6 (1.0-1.7); TOTAL BILIRUBIN 0.2 mg/dL (0.2-1.0); TOTAL PROTEIN 8.5 g/dL (6.4-8.2)
== END ==
LOC: ONCLAB 08:11
PROVIDERS: ATTEND Internal Medicine Hematology & Oncology
DX: C79.51 Secondary malignant neoplasm of bone (principal)
CPT/HCPCS: 36415; 80053; 85025

== ENCOUNTER → 2021-09-27 | Outpatient (CLI) | payer OTHER ==
[2021-09-27 08:58] LABS: BASO % 0 % (0-3); EOS # 0.3 x10^3/uL (0.0-0.7); EOS % 5 % (0-3); HEMATOCRIT 36.7 % (39.0-53.0); HEMOGLOBIN 12.4 g/dL (13.0-17.5); LYMPH # 0.8 x10^3/uL (1.0-4.8); LYMPH % 13 % (24-48); MEAN CORPUSCULAR HEMOGLOBIN 28 pg (25-35); MEAN CORPUSCULAR HGB CONC 34 g/dL (31-37); MEAN CORPUSCULAR VOLUME 83 fL (79-100); MONO # 0.5 x10^3/uL (0.0-1.1); MONO % 8 % (0-9); NEUT # 4.7 x10^3/uL (1.8-7.7); NEUT % 73 % (31-73); PLATELET COUNT 265 x10^3/uL (140-400); RED BLOOD COUNT 4.45 x10^6/uL (4.30-5.70); RED CELL DISTRIBUTION WIDTH 18.2 % (11.5-14.5); WHITE BLOOD COUNT 6.4 x10^3/uL (4.0-11.0)
[2021-09-27 09:14] LABS: CALCIUM 9.2 mg/dL (8.5-10.1); CREATININE 0.9 mg/dL (0.7-1.3); POTASSIUM 4.2 mmol/L (3.5-5.1)
[2021-09-27 09:19] LABS: ALBUMIN 3.6 g/dL (3.4-5.0); ALBUMIN/GLOBULIN RATIO 0.7 (1.0-1.7); TOTAL BILIRUBIN 0.5 mg/dL (0.2-1.0); TOTAL PROTEIN 8.7 g/dL (6.4-8.2)
== END ==
LOC: ONCLAB 08:16
PROVIDERS: ATTEND Internal Medicine Hematology & Oncology
DX: C34.11 Malignant neoplasm of upper lobe, right bronchus or lung (principal)
CPT/HCPCS: 36415; 80053; 85025